=== PATIENT | male | born 1940 | race Caucasian/White ===

== ENCOUNTER 2023-08-25 09:59 | Outpatient (AMB) | payer BC, SELFPAY ==
--- OUTSIDE RECORDS SUMMARY | 2023-08-25 10:00 | XMS_ITS | Continuity of Care Document ---
Author Name Unknown Organization [facility] Address [address] [address]- Care Team Providers Care Event Sales Representative Name Role Phone Aroldo LINDSAY, Esther M Primary Care Physician Encounter [facility] [place] Date(s): 06/11/21 - 07/11/21 [facility] [address] [address]- Attending Physician: Andie Mcqueen Admitting Physician: Andie Mcqueen Referring Physician: AdmtrAndie Allergies, Adverse Reactions, Alerts Substance Reaction Severity Status sulfa drugs Active Immunizations Given and Recorded Vaccine Date Status Refusal Reason pneumococcal 13-valent vaccine 06/20/15 Given influenza virus vaccine, inactivated 06/20/15 Give n influenza virus vaccine, inactivated 07/05/14 Give n influenza virus vaccine, inactivated 07/05/13 Hamzah rded influenza virus vaccine, inactivated 05/14/11 Hamzah rded influenza virus vaccine, inactivated 05/22/10 Hamzah rded tetanus/diphtheria/pertussis, acel(Tdap) 04/15/15 Given tetanus/diphtheria/pertussis, acel(Tdap) 05/26/12 Recorded Zostavax (oldterm) 1 09/03/08 Given 1Admin Note: given at [facility] per patient Medications Aspirin Tablet 81 mg, By Mouth, Daily, Refills 0, Maintenance, 09/25/16 13:28:43 Start Date: 09/25/16 Status: Ordered Azilect 1 mg oral tablet 1 tablet = 1 mg, By Mouth, Daily, # 30 tablet, 5 Refills, Maintenance, 04/28/16 11:08:36, Tablet Start Date: 04/28/16 Stop Date: 2/12/17 Status: Ordered finasteride 5 mg oral tablet 1 tablet = 5 mg, By Mouth, Daily, # 90 tablet, 3 Refills, Maintenance, 10/17/15 11:44:43, Tablet Start Date: 10/17/15 Stop Date: 10/11/16 Status: Ordered gabapentin 600 mg oral tablet 1.5 tablet = 900 mg, By Mouth, Daily at bedtime, 900 mg, 0 Refills, Maintenance, 09/25/16 21:00:49 EST Start Date: 09/25/16 Status: Ordered Multivitamin By Mouth, Daily, 0 Refills, Maintenance, 09/25/16 13:29:08 Start Date: 09/25/16 Status: Ordered Nitrostat 0.4 mg sublingual tablet 1 tablet = 0.4 mg, Sublingual, Every 5 minutes, PRN for chest pain, not to exceed 3 doses/15 min--if pain persists, seek medical attention, # 100 tablet, 0 Refills, Maintenance, 02/08/18 16:07:52 EDT, Tablet Start Date: 02/08/18 Status: Ordered Sinemet 25 mg-100 mg oral tablet 1 tablet, By Mouth, 3 times a day, # 90 tablet, 5 Refills, Maintenance, 12/16/15 17:17:00, Tablet Start Date: 12/16/15 Stop Date: 06/13/16 Status: Ordered terazosin 5 mg oral capsule 5 mg, 1, capsule, By Mouth, Daily at bedtime, # 30 capsule, Refills 5, Tot. Refills 5, Maintenance,05/04/16 14:14:00, Route to Pharmacy Electronically, [id number], [id number] Start Date: 05/04/16 Stop Date: 10/31/16 Status: Ordered Problem List Condition Effective Dates Status Health Status Inform ant Anemia(Confirmed) Active BPH (benign prostatic hypertrophy)(Confirmed) Active CAD - Coronary artery disease(Confirmed) Active Hip pain(Confirmed) Active Ischemic colitis(Confirmed) Active Lipids abnormal(Confirmed) Active Low back pain(Confirmed) Active Parkinson disease(Confirmed) Active RLS (restless legs syndrome)(Confirmed) Active Thyroid nodule(Confirmed) 1 Active 75373 thyroid ultrasound no malignant features Social History Social History Type Response Smoking Status Never smoker entered on: 05/09/14 Sex
--- OUTSIDE RECORDS SUMMARY | 2023-08-25 10:00 | XMS_ITS | Continuity of Care Document ---
Author Name Unknown Organization [facility] Address [address] [address]- Care Team Providers Care Load Blocker Name Role Phone Richard Hood DO Primary Care Physician Encounter [facility] [place] Date(s): 10/06/22 - 10/13/22 [facility] [address] [address]- Attending Physician: Not on Staff, Attending MD Referring Physician: Richard Hood DO Allergies, Adverse Reactions, Alerts Substance Reaction Severity [...] 1 09/03/08 Given 1Admin Note: given at [facility] per patient Medications Aspirin Tablet 81 mg, By Mouth, Daily, Refills 0, Maintenance, 09/25/16 13:28:43 Start Date: 09/25/16 Status: Ordered atorvastatin 40 mg oral tablet 1 tablet = 40 mg, By Mouth, Daily, # 90 tablet, 3 Refills, Maintenance, 05/15/22 15:16:00 EDT, [facility]t, [id number], 180, cm, 12/03/21 11:29:00 EDT, Height Start Date: 05/15/22 Status: Ordered Azilect 1 mg oral tablet 1 tablet = 1 mg, By Mouth, Daily, # 30 tablet, 5 Refills, Maintenance, 04/28/16 11:08:36, Tablet Start Date: 04/28/16 Stop Date: 10/25/16 Status: Ordered finasteride 5 mg oral tablet 1 tablet = 5 mg, By Mouth, Daily, for 90 days, # 90 tablet, 3 Refills, Hard Stop 11/28/22 12:38:00 EDT, 12/03/21 12:38:00 EDT, Tablet, [facility] [id number] [facility] [place], 180, cm, 12/03/21 11:29:00 EDT, Height Start Date: 12/03/21 Stop Date: 11/28/22 Status: Ordered finasteride 5 mg oral tablet 1 tablet = 5 mg, By Mouth, Daily, # 90 tablet, 3 Refills, Maintenance, 09/21/22 10:55:00 EST, Tablet, [facility], 180, cm, 09/09/22 13:28:00 EST, Height, 93, kg, 09/09/22 13:28:00 EST, Dry Weight Start Date: 09/21/22 Stop Date: 09/16/23 Status: Ordered gabapentin 300 mg oral capsule 900 mg, 3, capsule, By Mouth, Daily at bedtime, Refills 0, Maintenance, 10/05/22 11:29:00 EST, Partial fill upon patient request if the prescription is for a schedule II opioid drug. Start Date: 10/05/22 Status: Ordered Mirapex 0.25 mg oral tablet See Instructions, 0.25 mg By Mouth 3 times a day plus an addition 0.50 mg at bedtime, 0 Refills, Maintenance, 10/05/22 11:30:00 EST, Partial fill upon patient request if the prescription is for a schedule II opioid drug. Start Date: 10/05/22 Status: Ordered Multivitamin By Mouth, Daily, 0 [...] Ordered Sinemet 25 mg-100 mg oral tablet 1.5 tablet, By Mouth, 4 times a day, 0 Refills, Maintenance, 10/05/22 11:28:00 EST, Partial fill upon patient request if the prescription is for a schedule II opioid drug. Start Date: 10/05/22 Status: Ordered terazosin 5 mg oral capsule 1, capsule, By Mouth, Daily at bedtime, # 90 capsule, Refills 1, Route to Pharmacy Electronically, [id number] [place], 180, cm, 12/03/21 11:29:00 EDT, Height Start Date: 04/21/22 Status: Ordered Problem List Condition Confirmation Course Effective Dates Status Health St atus Informant Anemia Confirmed Active BPH (benign prostatic hypertrophy) Confirmed Active CAD - Coronary artery disease Confirmed Active Hip pain Confirmed Active Ischemic colitis Confirmed Active Lipids abnormal Confirmed Active Low back pain Confirmed Active Parkinson disease Confirmed Active RLS (restless legs syndrome) Confirmed Active Thyroid nodule 1 Confirmed Active 38953 thyroid ultrasound no malignant features Vital Signs Most recent to oldest [Reference Range]: 1 2 3 Pulse Rate [55-90 bpm] 68 bpm (10/06/22 10:25 AM) 70 bpm (10/06/22 10:15 AM) 85 bpm (10/06/22 9:00 AM) Blood Pressure [90-138/55-84 mm Hg] 99/54mm Hg (10/06/22 10:25 AM) 109/60mm Hg (10/06/22 10:15 AM) 95/60mm Hg (10/06/22 9:00 AM) Blood pressure sites Arm, left (10/06/22 10:25 AM) Arm, left (10/06/22 10:15 AM) Social History Social History Type Response Smoking Status Never smoker entered on: 05/09/14 Sex Patient Care team information Care Team Personnel Name: Richard Hood DO Position: Reference Physician Member Role: PCP Address: Address: [address] [place] [address] Dr [address] [facility] [place] [address]- [place] Name: Delfina Tellez RN Position: Jomar NOLASCO RN Member Role: Primary Care Nurse Name: Agustina Camacho RN Position: S RN Member Role: Primary Care Nurse Name: Claudine Evans NP Position: Reference Physician Member Role: Primary Care Nurse Address: Address: [address] [place] [address] [place] Care Team Related Persons Name: JACOB RAYA Address: home [address] [place] [address] Name: LES RAYA Address: [place] [address]
--- OUTSIDE RECORDS SUMMARY | 2023-08-25 10:00 | XMS_ITS | Continuity of Care Document ---
Author Name Unknown Organization [facility] Address [address] [address]- Care Team Providers Care Machinist Linotype Name Role Phone Aroldo LINDSAY, Esther M Primary Care Physician [phone] Encounter [facility] [place] Date(s): 12/23/21 - 01/22/22 [facility] [address] [address]- Referring Physician: Mirella Gerardo MD Allergies, Adverse Reactions, Alerts Substance Reaction Severity [...] 1 09/03/08 Given 1Admin Note: given at [facility] per patient Medications Aspirin Tablet [...] Daily, # 90 tablet, 3 Refills, Maintenance, 12/03/21 12:38:00 EDT, [facility]t, [id number], 180, cm, 12/03/21 11:29:00 EDT, Height Start Date: 12/03/21 Stop Date: 11/28/22 Status: Ordered gabapentin 600 mg oral tablet 1.5 tablet = 900 mg, By Mouth, Daily at bedtime, 900 mg, 0 Refills, Maintenance, 09/25/16 21:00:49 EST Start Date: 09/25/16 Status: Ordered mirabegron 25 mg oral tablet, extended release 1 tablet = 25 mg, By Mouth, Daily, do not crush or chew, # 30 tablet, 1 Refills, Maintenance, 12/03/21 12:39:00 EDT, ER Tablet, [facility], Partial fill upon patient request if the prescription is for a schedule II opioid drug., 180, cm, 11/12... Start Date: 12/03/21 Stop Date: 02/01/22 Status: Ordered Multivitamin By Mouth, Daily, 0 [...] Date: 12/16/15 Stop Date: 06/13/16 Status: Ordered Problem List Condition Effective Dates Status Health Status Inform ant Anemia(Confirmed) Active BPH (benign prostatic hypertrophy)(Confirmed) Active CAD - Coronary artery disease(Confirmed) Active Hip pain(Confirmed) Active Ischemic colitis(Confirmed) Active Lipids abnormal(Confirmed) Active Low back pain(Confirmed) Active Parkinson disease(Confirmed) Active RLS (restless legs syndrome)(Confirmed) Active Thyroid nodule(Confirmed) 1 Active 62578 thyroid ultrasound no malignant features Social History Social History Type Response Smoking Status Never smoker entered on: 05/09/14 Sex
--- OUTSIDE RECORDS SUMMARY | 2023-08-25 10:00 | XMS_ITS | Continuity of Care Document ---
Author Name Unknown Organization [facility] Address [address] [address]- Care Team Providers Care Supervisor Road Administrator Name Role Phone Richard Hood DO Kamron Primary Care Physician Encounter [facility] Date(s): 10/22/22 - 11/21/22 [facility] [address] [address]- [place] Allergies, Adverse Reactions, Alerts Substance Reaction Severity [...] 09/03/08 Given 1Admin Note: given at [facility] per patient Medications Aspirin Tablet 81 mg, By Mouth, Daily, Refills 0, Maintenance, 09/25/16 13:28:43 Start Date: 09/25/16 Status: Ordered atorvastatin 40 mg oral tablet 1 tablet = 40 mg, By Mouth, Daily, # 90 tablet, 3 Refills, Maintenance, 05/15/22 15:16:00 EDT, Tablet, [id number], 180, cm, 12/03/21 11:29:00 EDT, [...] 11/28/22 12:38:00 EDT, 12/03/21 12:38:00 EDT, Tablet, [facility] [address] [facility] [place], 180, cm, 12/03/21 11:29:00 EDT, Height Start Date: 12/03/21 Stop Date: 11/28/22 Status: Ordered finasteride 5 mg oral tablet 1 tablet = 5 mg, By Mouth, Daily, # 90 tablet, 3 Refills, Maintenance, 09/21/22 10:55:00 EST, Tablet, [facility], 180, cm, 09/09/22 13:28:00 EST, Height, 93, [...] attention, # 100 tablet, 0 Refills, Maintenance, 05/29/18 16:07:52 EDT, Tablet Start Date: 02/08/18 Status: [...] capsule, Refills 1, Route to Pharmacy Electronically, [facility] [place], 180, cm, 12/03/21 11:29:00 EDT, [...] Confirmed Active Thyroid nodule 1 Confirmed Active 00157 thyroid ultrasound no malignant features Social History Social History Type Response Smoking Status Never smoker entered on: 05/09/14 Sex Patient Care team information Care Team Personnel Name: Richard Hood DO Position: Reference Physician Member Role: PCP Address: Address: [address] [place] [id number]- Name: Delfina Tellez RN Position: Jomar NOLASCO RN Member Role: Primary Care Nurse Name: Agustina Camacho RN Position: S RN Member Role: Primary Care Nurse Name: Claudine Evans NP Position: Reference Physician Member Role: Primary Care Nurse Address: Address: [address] [place] [address]- Care Team Related Persons Name: JACOB RAYA Address: home [address] [place] [address] Name: LES RAYA Address: [place] [address]
--- OUTSIDE RECORDS SUMMARY | 2023-08-25 10:00 | XMS_ITS | Continuity of Care Document ---
Author Name Unknown Organization [facility] Address [address] [address]- Care Team Providers Care Correctional Officer Captain Name Role Phone HoodAmbrosio killian DOfarzana Lundy Primary Care Physician [place] [facility] [place] 03/11/23 - 04/10/23 [facility] [address] [address]- [place] Allergies, Adverse Reactions, Alerts Substance Reaction [...] 1 09/03/08 Given 1Admin Note: given at [facility] per patient Medications Aspirin Tablet 81 mg, By Mouth, Daily, Refills 0, Maintenance, 09/25/16 13:28:43 Start Date: 09/25/16 Status: Ordered atorvastatin 40 mg oral tablet 1 tablet = 40 mg, By Mouth, Daily, # 90 tablet, 3 Refills, Maintenance, 03/12/23 10:13:00 EDT, Tablet, [facility], 180, cm, 11/25/22 9:22:00 EDT, Height, 93, kg, 09/09/22 13:28:00 EST, Dry Weight Start Date: 03/12/23 Status: Ordered Azilect 1 mg oral tablet 1 tablet = 1 mg, By Mouth, Daily, # 30 tablet, 5 Refills, Maintenance, 04/28/16 11:08:36, Tablet Start Date: 04/28/16 Stop Date: 10/25/16 Status: Ordered finasteride 5 mg oral tablet 1 tablet = 5 mg, By Mouth, Daily, # 90 tablet, 3 Refills, Maintenance, 09/21/22 10:55:00 EST, Tablet, [facility], 180, cm, 09/09/22 13:28:00 [...] opioid drug. Start Date: 10/05/22 Status: Ordered Magnesium Chloride 0 Refills, Maintenance, 11/25/22 9:12:00 EDT, Partial fill upon patient request if the prescriptionis for a schedule II opioid drug. Start Date: 11/25/22 Status: Ordered Mirapex 0.25 mg oral tablet See Instructions, 0.25 mg By Mouth 3 times a day plus an addition 0.50 mg at bedtime, 0 Refills, Maintenance, 10/05/22 11:30:00 EST, Partial fill upon patient request if the prescription is for a schedule II opioid drug. Start Date: 10/05/22 Status: Ordered Nitrostat 0.4 mg sublingual tablet 1 tablet = 0.4 mg, Sublingual, Every 5 minutes, PRN for chest pain, not to exceed 3 doses/15 min--if pain persists, seek medical attention, # 100 tablet, 0 Refills, Maintenance, 02/08/18 16:07:52 EDT, Tablet Start Date: 02/08/18 Status: Ordered Propranolol 20 mg, By Mouth, 2 times a day, Refills 0, Maintenance, 11/25/22 9:12:00 EDT, Partial fill upon patient request if the prescription is for a schedule II opioid drug. Start Date: 11/25/22 Status: Ordered Sinemet 25 mg-100 mg oral tablet 1.5 tablet, By Mouth, 4 times a day, 0 Refills, Maintenance, 10/05/22 11:28:00 EST, Partial fill upon patient request if the prescription is for a schedule II opioid drug. Start Date: 10/05/22 Status: Ordered terazosin 5 mg oral capsule 1, capsule, By Mouth, Daily at bedtime, # 90 capsule, Refills 1, Route to Pharmacy Electronically, [id number], 180, cm, 12/03/21 11:29:00 EDT, [...] Confirmed Active Thyroid nodule 1 Confirmed Active 05436 thyroid ultrasound no malignant features Social History Social History Type Response Smoking Status Never smoker entered on: 05/09/14 Sex Patient Care team information Care Team Personnel Name: Richard Hood DO Position: Reference Physician Member Role: PCP Address: Address: [address] [place] [address]- Name: Delfina Tellez RN Position: Jomar NOLASCO RN Member Role: Primary Care Nurse Name: Agustina Camacho RN Position: S RN Member Role: Primary Care Nurse Name: Claudine Evans NP Position: Reference Physician Member Role: Primary Care Nurse Address: Address: [address] [place] [address]- Care Team Related Persons Name: JACOB RAYA Address: [address] [place] [address] Name: LES RAYA Address: [place] [address]
--- OUTSIDE RECORDS SUMMARY | 2023-08-25 10:00 | XMS_ITS | Continuity of Care Document ---
Author Name Unknown Organization [facility] Address [address] [address]- Care Team Providers Care Professor Of Social Work Name Role Phone Fernandez LINDSAY, Esther M Primary Care Physician Encounter [facility] [place] Date(s): 09/25/20 - 10/25/20 [facility] [address] [address]- Attending Physician: Andie Mcqueen Admitting Physician: Andie [...] 1 09/03/08 Given 1Admin Note: given at [facility] per patient Medications Aspirin Tablet [...] 5, Maintenance,05/04/16 14:14:00, Route to Pharmacy Electronically, [id number], [facility] Start Date: 05/04/16 Stop Date: 10/31/16 Status: Ordered Problem List Condition Effective Dates Status Health Status Inform ant Anemia(Confirmed) Active BPH (benign prostatic hypertrophy)(Confirmed) Active CAD - Coronary artery disease(Confirmed) Active Hip pain(Confirmed) Active Ischemic colitis(Confirmed) Active Lipids abnormal(Confirmed) Active Low back pain(Confirmed) Active Parkinson disease(Confirmed) Active RLS (restless legs syndrome)(Confirmed) Active Thyroid nodule(Confirmed) 1 Active 13415 thyroid ultrasound no malignant features Social History Social History Type Response Smoking Status Never smoker entered on: 05/09/14 Sex
--- OUTSIDE RECORDS SUMMARY | 2023-08-25 10:00 | XMS_ITS | Continuity of Care Document ---
Author Name Unknown Organization [facility] Address [address] [address]- Care Team Providers Care Automated Logistics Specialist Name Role Phone Aroldo LINDSAY, Esther M Primary Care Physician [phone] Encounter [facility] [place] Date(s): 06/11/21 - 06/18/21 [place] [place] [address] [address]- Attending Physician: Dez Armstrong MD Admitting Physician: Dez Armstrong MD Referring Physician: Dez Armstrong MD Allergies, Adverse Reactions, Alerts Substance Reaction [...] 1 09/03/08 Given 1Admin Note: given at [facility] per patient Medications Aspirin Tablet 81 [...] 5, Maintenance,05/04/16 14:14:00, Route to Pharmacy Electronically, [id number], [id number] Start Date: 05/04/16 Stop Date: 10/31/16 Status: Ordered Problem List Condition Effective Dates Status Health Status Inform ant Anemia(Confirmed) Active BPH (benign prostatic hypertrophy)(Confirmed) Active CAD - Coronary artery disease(Confirmed) Active Hip pain(Confirmed) Active Ischemic colitis(Confirmed) Active Lipids abnormal(Confirmed) Active Low back pain(Confirmed) Active Parkinson disease(Confirmed) Active RLS (restless legs syndrome)(Confirmed) Active Thyroid nodule(Confirmed) 1 Active 52040 thyroid ultrasound no malignant features Social History Social History Type Response Smoking Status Never smoker entered on: 05/09/14 Sex
--- OUTSIDE RECORDS SUMMARY | 2023-08-25 10:00 | XMS_ITS | Continuity of Care Document ---
Author Name Unknown Organization [facility] Address [address] [address]- Care Team Providers Care Optical Effects Layout Person Name Role Phone Aroldo LINDSAY, Esther Hudson Primary Care Physician [place] [facility] [place]14[place] - 06/13/22 [facility] [address] [address]- [place] Allergies, Adverse Reactions, Alerts Substance Reaction [...] 1 09/03/08 Given 1Admin Note: [facility] Medications Aspirin Tablet 81 mg, By Mouth, Daily, Refills 0, Maintenance, 09/25/16 13:28:43 Start Date: 09/25/16 Status: Ordered atorvastatin 40 mg oral tablet 1 tablet = 40 mg, By Mouth, Daily, # 90 tablet, 3 Refills, Maintenance, 05/15/22 15:16:00 EDT, [facility], 180, cm, 12/03/21 11:29:00 EDT, [...] Refills, Maintenance, 12/03/21 12:38:00 EDT, Tablet, [facility], 180, cm, 12/03/21 11:29:00 EDT, [...] chew, # 30 tablet, 1 Refills, Maintenance, 05/27/22 11:30:00 EDT, ER Tablet, [facility], Partial fill upon patient request if the prescription is for a schedule II opioid drug., 180, cm, 05/14... Start Date: 05/27/22 Stop Date: 07/26/22 Status: Ordered Mirapex = 1 mg, By Mouth, 2 times a day before breakfast and dinne, 0 Refills, Maintenance, 03/30/18 16:04:19 EDT Start Date: 03/30/18 Status: Ordered Multivitamin By Mouth, Daily, 0 Refills, Maintenance, 09/25/16 13:29:08 Start Date: 09/25/16 Status: Ordered Nitrostat 0.4 mg sublingual tablet 1 tablet = 0.4 mg, Sublingual, Every 5 minutes, PRN for chest pain, not to exceed 3 doses/15 min--if pain persists, seek medical attention, # 100 tablet, 0 Refills, Maintenance, 02/08/18 16:07:52 EDT, Tablet Start Date: 02/08/18 Status: Ordered propranolol 20 mg oral tablet 20 mg, 1, tablet, By Mouth, 3 times a day, # 270 tablet, Refills 3, Tot. Refills 3, Maintenance, 11/10/21 16:17:00 EST, Route [facility], [id number], 180, cm, 07/21/21 8:15:00 EST, Height Start Date: 11/10/21 Status: Ordered Sinemet 25 mg-100 mg oral tablet 1 tablet, By Mouth, 3 times a day, # 90 tablet, 5 Refills, Maintenance, 12/16/15 17:17:00, Tablet Start Date: 12/16/15 Stop Date: 06/13/16 Status: Ordered terazosin 5 mg oral capsule 1, capsule, By Mouth, Daily at bedtime, # 90 capsule, Refills 1, [facility] [place], 180, cm, 12/03/21 11:29:00 EDT, [...] Confirmed Active Thyroid nodule 1 Confirmed Active 55107 thyroid ultrasound no malignant features Social History Social History Type Response Smoking Status Never smoker entered on: 05/09/14 Sex Patient Care team information Personnel Name: Esther Kendrick NP Address: Address: [address] [place] [address] [employer] [place], [place] [address]
--- OUTSIDE RECORDS SUMMARY | 2023-08-25 10:00 | XMS_ITS | Continuity of Care Document ---
Author Name Unknown Organization [facility] Address [address] [place] [address]- Care Team Providers Care Injection Molding Engineer Name Role Phone Aroldo LINDSAY, Esther Hudson Primary Care Physician [phone] Encounter [facility] [place] Date(s): 12/03/21 - 12/10/21 [facility] [address] [place] [address]- Attending Physician: Dash Martinez MD Admitting Physician: Dash Martinez MD Referring Physician: Not on Staff, Referring MD Allergies, Adverse Reactions, Alerts Substance Reaction [...] 1 09/03/08 Given 1Admin Note: given at [facility] per patient Medications Aspirin Tablet 81 [...] Refills, Maintenance, 12/03/21 12:38:00 EDT, [facility]t, [facility], 180, cm, 12/03/21 11:29:00 EDT, [...] Maintenance, 12/03/21 12:39:00 EDT, ER Tablet, [facility], Partial fill upon patient request [...] 5, Maintenance,05/04/16 14:14:00, Route to Pharmacy Electronically, [id number], [facility] Start Date: 05/04/16 Stop Date: 10/31/16 Status: Ordered Problem List Condition Effective Dates Status Health Status Inform ant Anemia(Confirmed) Active BPH (benign prostatic hypertrophy)(Confirmed) Active CAD - Coronary artery disease(Confirmed) Active Hip pain(Confirmed) Active Ischemic colitis(Confirmed) Active Lipids abnormal(Confirmed) Active Low back pain(Confirmed) Active Parkinson disease(Confirmed) Active RLS (restless legs syndrome)(Confirmed) Active Thyroid nodule(Confirmed) 1 Active 49391 thyroid ultrasound no malignant features Vital Signs Most recent to oldest [Reference Range]: 1 Height 180 cm (12/03/21 11:29 AM) Pulse Rate [55-90 bpm] 53 bpm *L* (12/03/21 11:29 AM) Blood Pressure [90-138/55-84 mm Hg] 138/ 79mm Hg (12/03/21 11:29 AM) Respiratory Rate [16-30 br/min] 20 br/mi n (12/03/21 11:29 AM) Blood pressure sites Arm, right (12/03/21 11:29 AM) Social History Social History Type Response Smoking Status Never smoker entered on: 05/09/14 Sex
--- OUTSIDE RECORDS SUMMARY | 2023-08-25 10:01 | XMS_ITS | Continuity of Care Document ---
Author Name Unknown Organization [facility] Address [address] [facility] [place] [address]- Care Team Providers Care Risk Control Officer Name Role Phone Richard Hood DO Primary Care Physician Encounter [facility] Date(s): 03/24/23 - 03/31/23 [facility] [address] [place] [address]- Attending Physician: Dash Martinez MD Admitting Physician: [...] 1 09/03/08 Given 1Admin Note: given at [facility] per patient Medications Aspirin Tablet 81 mg, By Mouth, Daily, Refills 0, Maintenance, 09/25/16 13:28:43 Start Date: 09/25/16 Status: Ordered atorvastatin 40 mg oral tablet 1 tablet = 40 mg, By Mouth, Daily, # 90 tablet, 3 Refills, Maintenance, 03/12/23 10:13:00 EDT, Tablet, [facility], 180, cm, 11/25/22 9:22:00 EDT, Height, [...] 3 Refills, Maintenance, 09/21/22 10:55:00 EST, Tablet, [facility], 180, cm, 09/09/22 13:28:00 EST, Height, [...] capsule, Refills 1, Route to Pharmacy Electronically, [id number], 180, cm, 12/03/21 11:29:00 EDT, [...] Confirmed Active Thyroid nodule 1 Confirmed Active 63070 thyroid ultrasound no malignant features Vital Signs Most recent to oldest [Reference Range]: 1 Height 180 cm (03/24/23 10:36 AM) Pulse Rate [55-90 bpm] 68 bpm (03/24/23 10:36 AM) Blood Pressure [90-138/55-84 mm Hg] 94/5 5mm Hg (03/24/23 10:36 AM) Blood pressure sites Arm, right (03/24/23 10:36 AM) Social History Social History Type Response Smoking Status Never smoker entered on: 05/09/14 Sex Patient Care team information Care Team Personnel Name: Richard Hood DO Position: Reference Physician Member Role: PCP Address: Address: [address] [place] [address] [place] [address]- Name: Delfina Tellez RN Position: Jomar NOLASCO RN Member Role: Primary Care Nurse Name: Agustina Camacho RN Position: S RN Member Role: Primary Care Nurse Name: Claudine Evans NP Position: Reference Physician Member Role: Primary Care Nurse Address: Address: [address] [place] [address]- Care Team Related Persons Name: DOROTAJACOB Address: home [address] [place] [address] Name: LES RAYA Address: [place] [address]
--- OUTSIDE RECORDS SUMMARY | 2023-08-25 10:01 | XMS_ITS | Continuity of Care Document ---
Author Name Unknown Organization [facility] Address [address] [facility] [place] [address]- Care Team Providers Care Street Vendor Name Role Phone Richard Hood DO Kamron Primary Care Physician Encounter [facility] Date(s): 03/24/23 - 04/23/23 [facility] [address] [place] [address]- Attending Physician: Andie Mcqueen Admitting Physician: Andie [...] 1 09/03/08 Given 1Admin Note: given at [facility] per patient Medications Aspirin Tablet 81 mg, By Mouth, Daily, Refills 0, Maintenance, 09/25/16 13:28:43 Start Date: 09/25/16 Status: Ordered atorvastatin 40 mg oral tablet 1 tablet = 40 mg, By Mouth, Daily, # 90 tablet, 3 Refills, Maintenance, 03/12/23 10:13:00 EDT, Tablet, [facility], 180, cm, 11/25/22 9:22:00 EDT, Height, [...] 3 Refills, Maintenance, 09/21/22 10:55:00 EST, Tablet, [facility], 180, cm, 09/09/22 13:28:00 EST, Height, [...] persists, seek medical attention, # 100 tablet, 1 Refills, Maintenance, 04/13/23 15:11:00 EDT, Tablet, [id number], 180, cm, 03/24/23 10:... Start Date: 04/13/23 Status: Ordered Propranolol 20 mg, By Mouth, [...] capsule, Refills 1, Route to Pharmacy Electronically, [id number], 180, cm, 12/03/21 11:29:00 EDT, [...] Confirmed Active Thyroid nodule 1 Confirmed Active 01961 thyroid ultrasound no malignant features Social History Social History Type Response Smoking Status Never smoker entered on: 05/09/14 Sex Patient Care team information Care Team Personnel Name: Richard Hood DO Position: Reference Physician Member Role: PCP Address: Address: [address] [place] [address]- Name: Delfina Tellez RN Position: Jomar NOLASCO RN Member Role: Primary Care Nurse Name: Agustina Camacho RN Position: S RN Member Role: Primary Care Nurse Name: Claudine Evans NP Position: Reference Physician Member Role: Primary Care Nurse Address: Address: [address] [place] [address]- Care Team Related Persons Name: DOROTA, JACOB Address: home [address] [place] [address] Name: DOROTA LES Address: [place] [address]
--- OUTSIDE RECORDS SUMMARY | 2023-08-25 10:01 | XMS_ITS | Continuity of Care Document ---
Author Name Unknown Organization [facility] Address [address] [address]- Care Team Providers Care Fabric Worker Fitter Name Role Phone Alex Patel MD Primary Care Phys[id number] 09[facility]06/[facility] [address] [address]- Attending Physician: Dez Armstrong MD Admitting Physician: Dez Armstrong MD Referring Physician: Alex Patel MD Allergies, Adverse Reactions, Alerts Substance Reaction [...] 1 09/03/08 Given 1Admin Note: given at [facility] per patient Medications Aspirin Tablet 81 mg, [...] 5, Maintenance,05/04/16 14:14:00, Route to Pharmacy Electronically, [id number], [id number] Start Date: 05/04/16 Stop Date: 10/31/16 Status: Ordered Problem List Condition Effective Dates Status Health Status Inform ant Anemia(Confirmed) Active BPH (benign prostatic hypertrophy)(Confirmed) Active CAD - Coronary artery disease(Confirmed) Active Hip pain(Confirmed) Active Ischemic colitis(Confirmed) Active Lipids abnormal(Confirmed) Active Low back pain(Confirmed) Active Parkinson disease(Confirmed) Active RLS (restless legs syndrome)(Confirmed) Active Thyroid nodule(Confirmed) 1 Active 66125 thyroid ultrasound no malignant features Social History Social History Type Response Smoking Status Never smoker entered on: 05/09/14 Sex
--- OUTSIDE RECORDS SUMMARY | 2023-08-25 10:01 | XMS_ITS | Continuity of Care Document ---
Author Name Unknown Organization [facility] Address [address] [address]- Care Team Providers Care Furniture Builder Name Role Phone Fernandez LINDSAY, Esther M Primary Care Physician [facility] Date(s): 09/12/20 - 10/31/20 [place] [id number] [address]- Attending Physician: Dez Armstrong MD Admitting Physician: [...] 1 09/03/08 Given 1Admin Note: given at [facility] per patient Medications Aspirin Tablet 81 [...] 5, Maintenance,05/04/16 14:14:00, Route to Pharmacy Electronically, [id number], [id number] Start Date: 05/04/16 Stop Date: 10/31/16 Status: Ordered Problem List Condition Effective Dates Status Health Status Inform ant Anemia(Confirmed) Active BPH (benign prostatic hypertrophy)(Confirmed) Active CAD - Coronary artery disease(Confirmed) Active Hip pain(Confirmed) Active Ischemic colitis(Confirmed) Active Lipids abnormal(Confirmed) Active Low back pain(Confirmed) Active Parkinson disease(Confirmed) Active RLS (restless legs syndrome)(Confirmed) Active Thyroid nodule(Confirmed) 1 Active 61017 thyroid ultrasound no malignant features Social History Social History Type Response Smoking Status Never smoker entered on: 05/09/14 Sex
--- OUTSIDE RECORDS SUMMARY | 2023-08-25 10:01 | XMS_ITS | Continuity of Care Document ---
Author Name Unknown Organization [facility] Address [address] [address]- Care Team Providers Care Rail Specialist Name Role Phone Aroldo LINDSAY, Esther M Primary Care Physician Encounter [facility] Date(s): 07/21/21 - 08/20/21 [facility] [address] [address]- Attending Physician: Andie Mcqueen Admitting Physician: Andie [...] 09/03/08 Given 1Admin Note: given at [facility] per patient Medications Aspirin Tablet [...] 5, Maintenance,05/04/16 14:14:00, Route to Pharmacy Electronically, [id number], [facility] Start Date: 05/04/16 Stop Date: 10/31/16 Status: Ordered Problem List Condition Effective Dates Status Health Status Inform ant Anemia(Confirmed) Active BPH (benign prostatic hypertrophy)(Confirmed) Active CAD - Coronary artery disease(Confirmed) Active Hip pain(Confirmed) Active Ischemic colitis(Confirmed) Active Lipids abnormal(Confirmed) Active Low back pain(Confirmed) Active Parkinson disease(Confirmed) Active RLS (restless legs syndrome)(Confirmed) Active Thyroid nodule(Confirmed) 1 Active 14595 thyroid ultrasound no malignant features Social History Social History Type Response Smoking Status Never smoker entered on: 05/09/14 Sex
--- OUTSIDE RECORDS SUMMARY | 2023-08-25 10:01 | XMS_ITS | Continuity of Care Document ---
Author Name Unknown Organization [facility] Address [address] [facility] [place] [address]- Care Team Providers Care Guyline Operator Name Role Phone Richard Hood DO Primary Care Physician Encounter [facility] Date(s): 09/09/22 - 09/16/22 [facility] [address] [place] [address]- Attending Physician: Dash Martinez MD Admitting Physician: Dash Martinez MD Referring Physician: Esther Kendrick NP Allergies, Adverse Reactions, Alerts Substance Reaction Severity [...] 09/03/08 Given 1Admin Note: given at [facility] per patient Medications Aspirin Tablet 81 mg, By Mouth, Daily, Refills 0, Maintenance, 09/25/16 13:28:43 Start Date: 09/25/16 Status: Ordered atorvastatin 40 mg oral tablet 1 tablet = 40 mg, By Mouth, Daily, # 90 tablet, 3 Refills, Maintenance, 05/15/22 15:16:00 EDT, Tablet, [id number], 180, cm, 03/23/22 11:29:00 EDT, Height Start Date: 05/15/22 Status: Ordered Azilect 1 mg oral tablet 1 tablet = 1 mg, By Mouth, Daily, # 30 tablet, 5 Refills, Maintenance, 04/28/16 11:08:36, Tablet Start Date: 04/28/16 Stop Date: 10/25/16 Status: Ordered finasteride 5 mg oral tablet 1 tablet = 5 mg, By Mouth, Daily, # 90 tablet, 3 Refills, Maintenance, 12/03/21 12:38:00 EDT, [facility]t, [facility], 180, cm, 12/03/21 11:29:00 EDT, Height Start Date: 12/03/21 Stop Date: 11/28/22 Status: Ordered gabapentin 600 mg oral tablet 1.5 tablet = 900 mg, By Mouth, Daily at bedtime, 900 mg, 0 Refills, Maintenance, 09/25/16 21:00:49 EST Start Date: 09/25/16 Status: Ordered Mirapex = 1 mg, By Mouth, 2 times a day before breakfast and dinne, 0 Refills, Maintenance, 03/30/18 16:04:19 EDT Start Date: 03/30/18 Status: Ordered Multivitamin By Mouth, Daily, 0 Refills, Maintenance, 09/25/16 13:29:08 Start Date: 09/25/16 Status: Ordered Myrbetriq 25 mg oral tablet, extended release 1 tablet, By Mouth, Daily, DO NOT CRUSH OR CHEW, # 30 tablet, 1 Refills, Maintenance, 08/24/22 12:08:00 EST, [id number], 180, cm, 05/27/22 11:09:00 EDT, Height Start Date: 08/24/22 Stop Date: 09/23/22 Status: Ordered Nitrostat 0.4 mg sublingual tablet [...] 16:17:00 EST, Route to Pharm[facility] Electronically, [id number], 180, cm, 07/21/21 8:15:00 EST, [...] 1, Route to Pharmacy Electronically, [id number], 180, cm, 12/03/21 11:29:00 EDT, [...] Confirmed Active Thyroid nodule 1 Confirmed Active 52135 thyroid ultrasound no malignant features Vital Signs Most recent to oldest [Reference Range]: 1 Height 180 cm (09/09/22 1:28 PM) Weight 93 kg (09/09/22 1:28 PM) Oxygen Saturation [94-100 %] 97 % (09/09/22 1:28 PM) Pulse Rate [55-90 bpm] 63 bpm (09/09/22 1:28 PM) Body Mass Index [18.5-24.99 kg/m2] 28.7 kg/m2 *H* (09/09/22 1:28 PM) Blood Pressure [90-138/55-84 mm Hg] 129/ 73mm Hg (09/09/22 1:28 PM) Respiratory Rate [16-30 br/min] 24 br/mi n (09/09/22 1:28 PM) Temperature [96.8-100.4 DegF] 97.0 DegF (09/09/22 1:28 PM) Mode of Delivery (Oxygen) Room air (09/09/22 1:28 PM) Blood pressure sites Arm, left (09/09/22 1:28 PM) Temperature Route Temporal (09/09/22 1:28 PM) Dry Weight 93 kg (09/09/22 1:28 PM) Weight Obtained Via Standing scale (09/09/22 1:28 PM) Dry Weight Obtained Via Standing scale (09/09/22 1:28 PM) Social History Social History Type Response Smoking Status Never smoker entered on: 05/09/14 Sex Note * Chelsi Bernstein: PERFORM, SIGN, VERIFY Event Display: Patient Education/Instruction Authored Date: [id number] [facility] Clinical Summary Name SULY RAYA Age 81 Years 1940 PCP Richard Hood DO PCP Visit Date 09/09/2022 13:25:00 Additional Instructions: Scheduled Appointments?? Future Appointments ?No Future Appointments Scheduled Follow-Up Instructions ?? With: Address: When: Malinda Ghotra [address] [place] [address] 08/25/2023 1:30 PM Diagnosis Medications: Please continue your medications until treatment is completed or stopped by your provider. Discuss any questions related to medications with your provider. Medications to Continue with No Changes These medications were not printed or sent to your pharmacy Aspirin (Aspirin Tablet) 81 Milligram Oral Daily. Next Dose: Atorvastatin (atorvastatin 40 mg oral tablet) 1 tab(s) Oral Daily. Refills: 3. Next Dose: Carbidopa-Levodopa (Sinemet 25 mg-100 mg oral tablet) 1 tab(s) Oral 3 times a day for 30 Days. Refills: 5. Next Dose: Finasteride (finasteride 5 mg oral tablet) 1 tab(s) Oral Daily for 90 Days. Refills: 3. Next Dose: Gabapentin (gabapentin 600 mg oral tablet) 1.5 tab(s) Oral Daily at Bedtime. 900 mg. Next Dose: mirabegron (Myrbetriq 25 mg oral tablet, extended release) 1 tab(s) Oral Daily for 30 Days. DO NOT CRUSH OR CHEW. Refills: 1. Next Dose: Multivitamin Oral Daily. Next Dose: Nitroglycerin (Nitrostat 0.4 mg sublingual tablet) 1 tab(s) Sublingual every 5 minutes as needed for chest pain. not to exceed 3 doses/15 min--if pain persists, seek medical attention. Refills: 0. Next Dose: Pramipexole (Mirapex) 1 Milligram Oral 2 times a day before breakfast and dinner. Next Dose: Propranolol (propranolol 20 mg oral tablet) 1 tab(s) Oral 3 times a day. Refills: 3. Next Dose: rasagiline (Azilect 1 mg oral tablet) 1 tab(s) Oral Daily for 30 Days. Refills: 5. Next Dose: Terazosin (terazosin 5 mg oral capsule) 1 capsule Oral Daily at Bedtime. Refills: 1. Next Dose: Allergy Info:?? sulfa drugs Medications Given This Visit Future Orders ?No future orders Vital Signs Height 180 cm Weight 93 kg BMI 28.7 kg/m2 Blood Pressure 129 mm Hg/73 mm Hg Temperature 97.0 DegF Pulse Rate 63 bpm Respiratory Rate 24 br/min 02 Sat Mode of Delivery 97 %/Room air You can now view a summary of your hospital visit from the comfort of your home through a free online portal called [employer]. [employer] is a website that allows you to securely view your medical information including discharge summary, medications and follow-up visits. ??You can alsosend a secure electronic message to your doctor???s office to request appointments, renew medications or just ask a question. You can enroll at [email or web address] or register during your next office visit. Disclaimer:?? The information provided is of a general nature and is intended to be used in conjunction with the recommendations and advice of your health care practitioner. ??Every effort has been made to ensure that the information provided is accurate and complete at the time it is provided to you however, as your needs change, or, as new ??information becomes available, different or additional instructions may be required. If you have questions, please consult with your primary care provider or pharmacist, as appropriate. ??This information is not intended to serve as substitution for assessment and evaluation by a qualified health care provider. If you do not have a primary care provider, you may find a [facility] provider by calling [facility] Cause[employer] Link at [phone]. For information about the plan of care including goals and instructions for your diagnosis, please see the patient education orders section of this document. Patient Education Materials?? The content of this educational material or handout may have been modified, supplemented, or adapted from its original content and format to support your individualized medical care. Patient Care team information Care Team Personnel Name: Richard Hood DO Position: Reference Physician Member Role: PCP Address: Address: [address] [place] [address] [place] [address]- Name: Delfina Tellez RN Position: NAS NOLASCO RN Member Role: Primary Care Nurse Name: Agustina Camacho RN Position: NAS RN Member Role: Primary Care Nurse Name: Claudine Evans NP Position: Reference Physician Member Role: Primary Care Nurse Address: Address: [address] [place] [address]- Care Team Related Persons Name: JACOB RAYA Address: home [address] [place] [address] Name: LES RAYA Address: [place] [address]
--- OUTSIDE RECORDS SUMMARY | 2023-08-25 10:01 | XMS_ITS | Continuity of Care Document ---
Author Name Unknown Organization [facility] Address [address] [address]- Care Team Providers Care Radio News Writer Name Role Phone Richard Hood DO Kamron Primary Care Physician [phone] Encounter [facility] Date(s): 11/25/22 - 12/25/22 [facility] [address] [address]- Attending Physician: Andie Mcqueen Admitting Physician: Andie [...] 09/03/08 Given 1Admin Note: given at [facility] per patient Medications Aspirin Tablet 81 mg, By Mouth, Daily, Refills 0, Maintenance, 09/25/16 13:28:43 Start Date: 09/25/16 Status: Ordered atorvastatin 40 mg oral tablet 1 tablet = 40 mg, By Mouth, Daily, # 90 tablet, 3 Refills, Maintenance, 05/15/22 15:16:00 EDT, [id number], 180, cm, 12/03/21 11:29:00 EDT, [...] 3 Refills, Maintenance, 09/21/22 10:55:00 EST, Tablet, [facility], 180, cm, 09/09/22 13:28:00 EST, [...] capsule, Refills 1, Route to Pharmacy Electronically, [id number], 180, cm, 12/03/21 11:29:00 EDT, [...] Confirmed Active Thyroid nodule 1 Confirmed Active 99016 thyroid ultrasound no malignant features Social History Social History Type Response Smoking Status Never smoker entered on: 05/09/14 Sex Patient Care team information Care Team Personnel Name: Richard Hood DO Position: Reference Physician Member Role: PCP Address: Address: [address] [place] [address]- Name: Delfina Tellez RN Position: Jomar NOLASCO RN Member Role: Primary Care Nurse Name: Agustina Camacho RN Position: S RN Member Role: Primary Care Nurse Name: Claudine Evans NP Position: Reference Physician Member Role: Primary Care Nurse Address: Address: [address] [place] [address]- Care Team Related Persons Name: JACOB RAYA Address: home [address] [place] [address] Name: LES RAYA Address: [place] [address]
--- OUTSIDE RECORDS SUMMARY | 2023-08-25 10:01 | XMS_ITS | Continuity of Care Document ---
Author Name Unknown Organization [facility] Address [address] [address]- Care Team Providers Care Neurology Stroke Physician Name Role Phone Alex Patel MD Primary Care Physician [phone] [id number] Date[facility]09[facility] - 09/16/20 [facility] [address] [address]- Attending Physician: Dez Armstrong MD Admitting Physician: [...] 1 09/03/08 Given 1Admin Note: given at [facility] per patient Medications Aspirin Tablet 81 [...] 5, Maintenance,05/04/16 14:14:00, Route to Pharmacy Electronically, [id number], [id number] Start Date: 05/04/16 Stop Date: 10/31/16 Status: Ordered Problem List Condition Effective Dates Status Health Status Inform ant Anemia(Confirmed) Active BPH (benign prostatic hypertrophy)(Confirmed) Active CAD - Coronary artery disease(Confirmed) Active Hip pain(Confirmed) Active Ischemic colitis(Confirmed) Active Lipids abnormal(Confirmed) Active Low back pain(Confirmed) Active Parkinson disease(Confirmed) Active RLS (restless legs syndrome)(Confirmed) Active Thyroid nodule(Confirmed) 1 Active 89955 thyroid ultrasound no malignant features Social History Social History Type Response Smoking Status Never smoker entered on: 05/09/14 Sex
--- OUTSIDE RECORDS SUMMARY | 2023-08-25 10:01 | XMS_ITS | Continuity of Care Document ---
Author Name Unknown Organization [facility] Address [address] [address]- Care Team Providers Care Digital Content Manager Name Role Phone Aroldo LINDSAY, Esther M Primary Care Physician Encounter [facility] Date(s): 07/21/21 - 07/28/21 [place] [id number] [address]- Attending Physician: Dez Armstrong MD Admitting Physician: [...] 1 09/03/08 Given 1Admin Note: given at [facility] per patient Medications Aspirin Tablet 81 mg, [...] 5, Maintenance,05/04/16 14:14:00, Route to Pharmacy Electronically, [id number], [id number] Start Date: 05/04/16 Stop Date: 10/31/16 Status: Ordered Problem List Condition Effective Dates Status Health Status Inform ant Anemia(Confirmed) Active BPH (benign prostatic hypertrophy)(Confirmed) Active CAD - Coronary artery disease(Confirmed) Active Hip pain(Confirmed) Active Ischemic colitis(Confirmed) Active Lipids abnormal(Confirmed) Active Low back pain(Confirmed) Active Parkinson disease(Confirmed) Active RLS (restless legs syndrome)(Confirmed) Active Thyroid nodule(Confirmed) 1 Active 66964 thyroid ultrasound no malignant features Vital Signs Most recent to oldest [Reference Range]: 1 Height 180 cm (07/21/21 8:15 AM) Weight 93.8 kg (07/21/21 8:15 AM) Pulse Rate [55-90 bpm] 47 bpm *L* (07/21/21 8:15 AM) Body Mass Index [18.5-24.99] 28.95 *H* (07/21/21 8:15 AM) Blood Pressure [90-138/55-84 mm Hg] 104/ 67mm Hg (07/21/21 8:15 AM) Blood pressure sites Arm, left (07/21/21 8:15 AM) Weight Obtained Via Standing scale (07/21/21 8:15 AM) Social History Social History Type Response Smoking Status Never smoker entered on: 05/09/14 Sex
--- OUTSIDE RECORDS SUMMARY | 2023-08-25 10:01 | XMS_ITS | Continuity of Care Document ---
Author Name Unknown Organization [facility] Address [address] [address]- Care Team Providers Care Assistant Office Manager Name Role Phone Aroldo LINDSAY, Esther Hudson Primary Care Physician [facility] [facility] Date(s): 04/10/21 - 05/10/21 [facility] [address] [address] Allergies, Adverse Reactions, Alerts Substance Reaction [...] 1 09/03/08 Given 1[facility] Medications Aspirin Tablet 81 mg, [...] 5, Maintenance,05/04/16 14:14:00, Route to Pharmacy Electronically, [id number], [id number] Start Date: 05/04/16 Stop Date: 10/31/16 Status: Ordered Problem List Condition Effective Dates Status Health Status Inform ant Anemia(Confirmed) Active BPH (benign prostatic hypertrophy)(Confirmed) Active CAD - Coronary artery disease(Confirmed) Active Hip pain(Confirmed) Active Ischemic colitis(Confirmed) Active Lipids abnormal(Confirmed) Active Low back pain(Confirmed) Active Parkinson disease(Confirmed) Active RLS (restless legs syndrome)(Confirmed) Active Thyroid nodule(Confirmed) 1 Active 06495 thyroid ultrasound no malignant features Social History Social History Type Response Smoking Status Never smoker entered on: 05/09/14 Sex
--- OUTSIDE RECORDS SUMMARY | 2023-08-25 10:01 | XMS_ITS | Continuity of Care Document ---
Author Name Unknown Organization [facility] Address [address] [address]- Care Team Providers Care Evidence Technician Name Role Phone Fernandez LINDSAY, Esther M Primary Care Physician [phone] Encounter [facility] [place] Date(s): 09/05/20 - 10/05/20 [facility] [address] [address]- [place] Allergies, Adverse Reactions, Alerts Substance Reaction [...] 1 09/03/08 Given 1Admin Note: given at [facility] per patient Medications Aspirin Tablet 81 [...] 5, Maintenance,05/04/16 14:14:00, Route to Pharmacy Electronically, [id number], [id number] Start Date: 05/04/16 Stop Date: 10/31/16 Status: Ordered Problem List Condition Effective Dates Status Health Status Inform ant Anemia(Confirmed) Active BPH (benign prostatic hypertrophy)(Confirmed) Active CAD - Coronary artery disease(Confirmed) Active Hip pain(Confirmed) Active Ischemic colitis(Confirmed) Active Lipids abnormal(Confirmed) Active Low back pain(Confirmed) Active Parkinson disease(Confirmed) Active RLS (restless legs syndrome)(Confirmed) Active Thyroid nodule(Confirmed) 1 Active 17452 thyroid ultrasound no malignant features Social History Social History Type Response Smoking Status Never smoker entered on: 05/09/14 Sex
--- OUTSIDE RECORDS SUMMARY | 2023-08-25 10:01 | XMS_ITS | Continuity of Care Document ---
Author Name Unknown Organization [facility] Address [address] [address]- Care Team Providers Care Quencher Operator Name Role Phone Richard Hood DO Kamron Primary Care Physician [phone] [place] [facility] [place] Date(s): 10/05/22 - 11/04/22 [facility] [address] [address]- [place] Allergies, Adverse Reactions, Alerts Substance Reaction [...] 1 09/03/08 Given 1Admin Note: given at [facility] per patient Medications Aspirin Tablet 81 mg, By Mouth, Daily, Refills 0, Maintenance, 09/25/16 13:28:43 Start Date: 09/25/16 Status: Ordered atorvastatin 40 mg oral tablet 1 tablet = 40 mg, By Mouth, Daily, # 90 tablet, 3 Refills, Maintenance, 05/15/22 15:16:00 EDT, [facility]t, [id number], 180, cm, 12/03/21 11:29:00 EDT, [...] 11/28/22 12:38:00 EDT, 12/03/21 12:38:00 EDT, Tablet, [facility] [address] [facility], 180, cm, 12/03/21 11:29:00 EDT, Height Start Date: 12/03/21 Stop Date: 11/28/22 Status: Ordered finasteride 5 mg oral tablet 1 tablet = 5 mg, By Mouth, Daily, # 90 tablet, 3 Refills, Maintenance, 09/21/22 10:55:00 EST, Tablet, [facility], 180, cm, 09/09/22 13:28:00 EST, Height, [...] capsule, Refills 1, Route to Pharmacy Electronically, [facility], 180, cm, 12/03/21 11:29:00 EDT, [...] Confirmed Active Thyroid nodule 1 Confirmed Active 40435 thyroid ultrasound no malignant features Social History Social History Type Response Smoking Status Never smoker entered on: 05/09/14 Sex Patient Care team information Care Team Personnel Name: Richard Hood DO Position: Reference Physician Member Role: PCP Address: Address: [address] [place] [address]- Name: Delfina Tellez RN Position: Jomar NOLASCO RN Member Role: Primary Care Nurse Name: Agustina Camacho RN Position: S RN Member Role: Primary Care Nurse Name: Claudine Evans NP Position: Reference Physician Member Role: Primary Care Nurse Address: Address: [address] [place] [address]- Care Team Related Persons Name: JACOB RAYA Address: home [address] [place] [address] Name: LES RAYA Address: [place] [address]
--- OUTSIDE RECORDS SUMMARY | 2023-08-25 10:01 | XMS_ITS | Continuity of Care Document ---
Author Name Unknown Organization [facility] Address [address] [facility] [place] [address]- Care Team Providers Care Food And Beverage Manager Name Role Phone Esther Kendrick NP Primary Care Physician Encounter [facility] [place] Date(s): 05/27/22 - 06/03/22 [facility] [address] [place] [address]- Attending Physician: Dash Martinez MD Admitting Physician: [...] 1 09/03/08 Given 1Admin Note: given at [facility] per patient Medications Aspirin Tablet 81 mg, By Mouth, Daily, Refills 0, Maintenance, 09/25/16 13:28:43 Start Date: 09/25/16 Status: Ordered atorvastatin 40 mg oral tablet 1 tablet = 40 mg, By Mouth, Daily, # 90 tablet, 3 Refills, Maintenance, 05/15/22 15:16:00 EDT, [facility]t, [id number], 180, cm, 12/03/21 11:29:00 EDT, [...] Refills, Maintenance, 12/03/21 12:38:00 EDT, [facility]t, [id number], 180, cm, 12/03/21 11:29:00 EDT, [...] Maintenance, 05/27/22 11:30:00 EDT, ER [id number], Partial fill upon patient request [...] Maintenance, 02/08/18 16:07:52 EDT, Tablet Start Date: 5/29/18 Status: Ordered propranolol 20 mg oral tablet 20 mg, 1, tablet, By Mouth, 3 times a day, # 270 tablet, Refills 3, Tot. Refills 3, Maintenance, 11/10/21 16:17:00 EST, Route to Pharmacy Electronically, [id number], 180, cm, 07/21/21 8:15:00 EST, [...] 1, Route to [facility] Electronically, [facility], 180, cm, 12/03/21 11:29:00 EDT, Height Start Date: 04/21/22 Status: Ordered Problem List Condition Effective Dates Status Health Status Inform ant Anemia(Confirmed) Active BPH (benign prostatic hypertrophy)(Confirmed) Active CAD - Coronary artery disease(Confirmed) Active Hip pain(Confirmed) Active Ischemic colitis(Confirmed) Active Lipids abnormal(Confirmed) Active Low back pain(Confirmed) Active Parkinson disease(Confirmed) Active RLS (restless legs syndrome)(Confirmed) Active Thyroid nodule(Confirmed) 1 Active 85876 thyroid ultrasound no malignant features Vital Signs Most recent to oldest [Reference Range]: 1 Height 180 cm (05/27/22 11:09 AM) Social History Social History Type Response Smoking Status Never smoker entered on: 05/09/14 Sex Care Team Personnel Name: Esther Kendrick NP Address: [address] [place] [address] [address] [place] [address]-
--- OUTSIDE RECORDS SUMMARY | 2023-08-25 10:01 | XMS_ITS | Continuity of Care Document ---
Author Name Unknown Organization [facility] Address [address] [address]- Care Team Providers Care Ems Manager Name Role Phone Fernandez LINDSAY, Esther M Primary Care Physician Encounter [facility] [place] Date(s): 10/04/20 - 11/03/20 [facility] [address] [address]- [place] Allergies, Adverse Reactions, Alerts Substance Reaction [...] 09/03/08 Given 1Admin Note: given at [facility] per patient Medications Aspirin Tablet 81 [...] 5, Maintenance,05/04/16 14:14:00, Route to Pharmacy Electronically, [id number], [id number] Start Date: 05/04/16 Stop Date: 10/31/16 Status: Ordered Problem List Condition Effective Dates Status Health Status Inform ant Anemia(Confirmed) Active BPH (benign prostatic hypertrophy)(Confirmed) Active CAD - Coronary artery disease(Confirmed) Active Hip pain(Confirmed) Active Ischemic colitis(Confirmed) Active Lipids abnormal(Confirmed) Active Low back pain(Confirmed) Active Parkinson disease(Confirmed) Active RLS (restless legs syndrome)(Confirmed) Active Thyroid nodule(Confirmed) 1 Active 76771 thyroid ultrasound no malignant features Social History Social History Type Response Smoking Status Never smoker entered on: 05/09/14 Sex
--- OUTSIDE RECORDS SUMMARY | 2023-08-25 10:01 | XMS_ITS | Continuity of Care Document ---
Author Name Unknown Organization [facility] Address [address] [address]- Care Team Providers Care Infrastructure Solutions Architect Name Role Phone Fernandez LINDSAY, Esther M Primary Care Physician [phone] Encounter [facility] [place] Date(s): 09/12/20 - 10/12/20 [facility] [address] [address]- [place] Allergies, Adverse Reactions, Alerts Substance Reaction [...] 09/03/08 Given 1Admin Note: given at [facility] per patient Medications Aspirin Tablet 81 [...] 5, Maintenance,05/04/16 14:14:00, Route to Pharmacy Electronically, [id number], [id number] Start Date: 05/04/16 Stop Date: 10/31/16 Status: Ordered Problem List Condition Effective Dates Status Health Status Inform ant Anemia(Confirmed) Active BPH (benign prostatic hypertrophy)(Confirmed) Active CAD - Coronary artery disease(Confirmed) Active Hip pain(Confirmed) Active Ischemic colitis(Confirmed) Active Lipids abnormal(Confirmed) Active Low back pain(Confirmed) Active Parkinson disease(Confirmed) Active RLS (restless legs syndrome)(Confirmed) Active Thyroid nodule(Confirmed) 1 Active 16648 thyroid ultrasound no malignant features Social History Social History Type Response Smoking Status Never smoker entered on: 05/09/14 Sex
--- OUTSIDE RECORDS SUMMARY | 2023-08-25 10:01 | XMS_ITS | Continuity of Care Document ---
Author Name Unknown Organization [facility] Address [address] [address]- Care Team Providers Care Paint Specialist Name Role Phone Richard Hood DO Primary Care Physician [place] [facility] [place] - 11/13/22 [facility] [address] [address]- Attending Physician: Emmanuel Sal MD Admitting Physician: Emmanuel Sal MD Referring Physician: Esther Kendrick NP Allergies, [...] 1 09/03/08 Given 1Admin Note: given at [facility] per patient Medications Aspirin Tablet 81 mg, By Mouth, Daily, Refills 0, Maintenance, 09/25/16 13:28:43 Start Date: 09/25/16 Status: Ordered atorvastatin 40 mg oral tablet 1 tablet = 40 mg, By Mouth, Daily, # 90 tablet, 3 Refills, Maintenance, 05/15/22 15:16:00 EDT, [facility]t, [id number], 180, cm, 12/03/21 11:29:00 EDT, [...] 12:38:00 EDT, Tablet, [facility] [address] [facility], 180, cm, 12/03/21 11:29:00 EDT, Height Start Date: 12/03/21 Stop Date: 11/28/22 Status: Ordered finasteride 5 mg oral tablet 1 tablet = 5 mg, By Mouth, Daily, # 90 tablet, 3 Refills, Maintenance, 09/21/22 10:55:00 EST, Tablet, [facility], 180, cm, 09/09/22 13:28:00 EST, Height, 93, [...] capsule, Refills 1, Route to Pharmacy Electronically, [facility], 180, cm, 12/03/21 11:29:00 EDT, [...] Confirmed Active Thyroid nodule 1 Confirmed Active 07449 thyroid ultrasound no malignant features Social History Social History Type Response Smoking Status Never smoker entered on: 05/09/14 Sex Patient Care team information Care Team Personnel Name: Richard Hood DO Position: Reference Physician Member Role: PCP Address: Address: [address] [place] [address] [place] [address]- Name: Delfina Tellez RN Position: Jomar NOLASCO RN Member Role: Primary Care Nurse Name: Agustina Camacho RN Position: S RN Member Role: Primary Care Nurse Name: Claudine Evans NP Position: Reference Physician Member Role: Primary Care Nurse Address: Address: [address] [place] [address]- Care Team Related Persons Name: JACOB RAYA Address: home [address] [place] [address] Name: LES RAYA Address: [place] [address]
--- OUTSIDE RECORDS SUMMARY | 2023-08-25 10:01 | XMS_ITS | Continuity of Care Document ---
Author Name Unknown Organization [facility] Address [address] [address]- Care Team Providers Care Domestic Technician Name Role Phone Richard Hood DO Kamron Primary Care Physician [phone] Encounter [facility] Date(s): 07/06/22 - 08/05/22 [facility] [address] [address]- [place] Allergies, Adverse Reactions, Alerts Substance Reaction [...] 1 09/03/08 Given 1Admin Note: given at [facility] per patient Medications Aspirin Tablet 81 mg, By Mouth, Daily, Refills 0, Maintenance, 09/25/16 13:28:43 Start Date: 09/25/16 Status: Ordered atorvastatin 40 mg oral tablet 1 tablet = 40 mg, By Mouth, Daily, # 90 tablet, 3 Refills, Maintenance, 05/15/22 15:16:00 EDT, [facility], [id number], 180, cm, 12/03/21 11:29:00 EDT, [...] Refills, Maintenance, 12/03/21 12:38:00 EDT, [facility]t, [facility], 180, cm, 12/03/21 11:29:00 EDT, [...] Maintenance, 05/27/22 11:30:00 EDT, ER [facility], Partial fill upon patient request [...] 16:17:00 EST, Route to Pharm[facility] Electronically, [facility], 180, cm, 07/21/21 8:15:00 EST, [...] 1, Route to [facility] Electronically[facility], 180, cm, 12/03/21 11:29:00 EDT, [...] Confirmed Active Thyroid nodule 1 Confirmed Active 20966 thyroid ultrasound no malignant features Social History Social History Type Response Smoking Status Never smoker entered on: 05/09/14 Sex Patient Care team information Care Team Personnel Name: Richard Hood DO Position: Reference Physician Member Role: PCP Address: Address: [address] [place] [address]- Name: Delfina Tellez RN Position: Jomar NOLASCO RN Member Role: Primary Care Nurse Name: Agustina Camacho RN Position: S RN Member Role: Primary Care Nurse Name: Claudine Evans NP Position: Reference Physician Member Role: Primary Care Nurse Address: Address: [address] [place] [address]- Care Team Related Persons Name: JACOB RAYA Address: home [address] [place] [address] Name: LES RAYA Address: [place] [address]
--- OUTSIDE RECORDS SUMMARY | 2023-08-25 10:01 | XMS_ITS | Continuity of Care Document ---
Author Name Unknown Organization [facility] Address [address] [address]- Care Team Providers Care Surgical Garment Assembly Supervisor Name Role Phone Richard Hood DO Primary Care Physician [place] [facility] [place] 11/25/22 - 12/02/22 [facility] [address] [address]- Attending Physician: Emmanuel Mckeon MD Admitting Physician: Emmanuel Mckeon MD Referring Physician: Richard Hood DO Allergies, [...] Refills, Maintenance, 05/15/22 15:16:00 EDT, [facility]t, [facility], 180, cm, 12/03/21 11:29:00 EDT, [...] capsule, Refills 1, Route to Pharmacy Electronically, [facility], 180, cm, 12/03/21 11:29:00 EDT, [...] Confirmed Active Thyroid nodule 1 Confirmed Active 20943 thyroid ultrasound no malignant features Vital Signs Most recent to oldest [Reference Range]: 1 2 Height 180 cm (11/25/22 9:22 AM) 180 cm (11/25/22 9:08 AM) Weight 92.4 kg (11/25/22 9:08 AM) Oxygen Saturation [94-100 %] 99 % (11/25/22 9:08 AM) Pulse Rate [55-90 bpm] 63 bpm (11/25/22 9:08 AM) Body Mass Index [18.5-24.99 kg/m2] 28.52 kg/m2 *H* (11/25/22 9:08 AM) Blood Pressure [90-138/55-84 mm Hg] 97/5 7mm Hg (11/25/22 9:08 AM) Blood pressure sites Arm, left (11/25/22 9:08 AM) Weight Obtained Via Standing scale (11/25/22 9:08 AM) Social History Social History Type Response Smoking Status Never smoker entered on: 05/09/14 Sex Cardiology Outpatient Note * Emmanuel Mckeon MD: PERFORM Event Display: Cardiology Note Office Authored Date: [id number] Patient: ??SULY RAYA ? Age:??81 Years?Sex:??Male?:??1940?? Patient Hx Provider Clinical Summary History: 1. ??CAD. Balloon angioplasty to the distal LAD in September 2016. ??There was gnwk-zu-qmulzloq disease in the circumflex and RCA with preserved LV function ??at that time. ??Aggressive medical management. 2. ??History of PTCA and bare-metal stent to LAD and diagonal in 2000 in [place]. ??Negative nuclearstress test September 2008. 3. ??Mild hyperlipidemia. 4. ??Mild sleep apnea. 5. ??BPH. 6. ??Inguinal hernia. 7. ??History of Parkinson's disease. 8.?? Orthostatic hypotension ?? Feeling better since his last cardiology visit.?? Now off of tamsulosin.?? 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 Propranolol is now prescribed by his neurologist. ?? Tolerating propranolol 20 mg p.o. twice daily ?? Return to clinic in??9 months Physical Exam Vitals & Measurements AZ:??63?? BP:??97/57?? BP:??97/57(Sitting)?? BP:??91/53(Standing)?? BP:??111/61(Supine)?? SpO2:??99%?? HT:??180??cm?? WT:??92.4??kg?? BMI:??28.52?? Weight lb/oz: 203 lb 11 oz GENERAL: ??Alert and oriented x3, no acute distress. HEENT: Mucous membranes pink and moist. ?? NECK: ??No JVD?? LUNGS: Clear to auscultation bilaterally. ??No crackles, wheezing, rhonchi. ?? HEART: ??Regular rate and rhythm, normal S1, S2. ??No murmurs, rubs, or gallops.?? ABDOMEN: Soft, nontender, nondistended.?? EXTREMITIES: ??No pitting edema, cyanosis, clubbing. ?? PULSES: 2+ radials SKIN: Warm and well perfused. ?? NEURO: ??Oriented to person, time, and place, following commands, and moving all extremities.?? MUSCULOSKELETAL: ??Negative.?? Allergies sulfa drugs Home Medications Aspirin Tablet, 81 mg, By Mouth, Daily atorvastatin 40 mg oral tablet, 40 mg= 1 tablet, By Mouth, Daily, 3 refills Azilect 1 mg oral tablet, 1 mg= 1 tablet, By Mouth, Daily, 5 refills finasteride 5 mg oral tablet, 5 mg= 1 tablet, By Mouth, Daily, 3 refills finasteride 5 mg oral tablet, 5 mg= 1 tablet, By Mouth, Daily, 3 refills gabapentin 300 mg oral capsule, 900 mg= 3 capsule, By Mouth, Daily at bedtime Magnesium Chloride Mirapex 0.25 mg oral tablet, See Instructions, 0.25 mg By Mouth 3 times a day plus an addition 0.50mg at bedtime Multivitamin, By Mouth, Daily Nitrostat 0.4 mg sublingual tablet, 0.4 mg= 1 tablet, Sublingual, Every 5 minutes, PRN, not to exceed 3 doses/15 min--if pain persists, seek medical attention Propranolol, 20 mg, By Mouth, 2 times a day Sinemet 25 mg-100 mg oral tablet, 1.5 tablet, By Mouth, 4 times a day terazosin 5 mg oral capsule, 1 capsule, By Mouth, Daily at bedtime Diagnostic Impression ECG ECG 12-Lead ?? 11:34:56 Please click on pdf link to open report ?? Signed By: Emmanuel Mckeon MD ?? ECG 12-Lead ?? 11:34:56 Ventricular Rate: 69 BPM Atrial Rate: 69 BPM P-R Interval: 206 ms QRS Duration: 72 ms Q-T Interval: 386 ms QTC Calculation(Bazett): 413 ms P [place]: 65 degrees R [place]: 44 degrees T [place]: 67 degrees Normal sinus rhythm Normal ECG When compared with ECG of 21-JUL-2021 09:10, No significant change was found Confirmed by EMMANUEL MCKEON ([id number]) on 10/18/2022 6:12:02 PM ?? [place]: EMMANUEL MCKEON ?? Signed By: Emmanuel Mckeon MD Stress Test NM Myocard Perf SPECT Multi ?? 11:16:27 Summary Normal. No evidence of stress induced ischemia or prior myocardial infarction. Normal left ventricular ejection fraction, no wall motion abnormalities, normal chamber size. Low likelihood of hemodynamically significant coronary artery disease. Compared with report of study from 2017 there has been resolution of ischemia . ?? Signatures _ _ ?? Signed By: Dez Armstrong MD Echo Echocardiogram - Complete ?? 09:00:09 Summary The left ventricle is normal in size. Wall thickness is mildly increased. Overall left ventricular systolic function is normal. LVEF visually estimated at 60-65%. There are no regional wall motion abnormalities. Normal diastolic function. The left atrium is mildly dilated. The right ventricle is normal in size and function. ?? Comparison Comparison is made to the study of September 09, 2020. The LA is now mildly dilated. No other definite interval change. ?? Signature ?? Signed By: Enrique Mcdermott MD Problem List/Past Medical History Ongoing Anemia BPH (benign prostatic hypertrophy) CAD - Coronary artery disease Hip pain Ischemic colitis Lipids abnormal Low back pain Parkinson disease RLS (restless legs syndrome) Thyroid nodule Historical No qualifying data Procedure/Surgical History Angioplasty: 2000 Excision of lumbar intervertebral disc: 1970 Rjini repair of inguinal hernia Follow-Up Appointments Added Follow Up ?Time Frame ?Comments Cecilia Agustin?9 ?? Weeks Emmanuel Mckeon Social History Alcohol Use: Current. Other: rare., 05/09/2014 Employment/School Status: Retired. 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 Other: walks 45min a day., 05/09/2014 Home/Environment Living situation: Home/Independent. Lives with: Spouse. Other: pt lives in [place] with his andhas four children., 05/09/2014 Sexual Sexual orientation: Heterosexual., 04/28/2016 Substance Abuse Use: Never., 05/09/2014 Tobacco Use: Never smoker., 05/09/2014 Family History Mother: Dementia; Diabetes mellitus type II Father (): CAD - Coronary artery disease; Diabetes mellitus type II; Thyroid disease Note * Lisa Menendez: PERFORM, SIGN, VERIFY Event Display: Patient Education/Instruction Authored Date: [id number] [facility]rt Vas Off Clinical Summary Name SULY RAYA Age 81 Years 1940 PCP Richard Hood DO PCP Visit Date Additional Instructions: Scheduled Appointments?? Future Appointments ?No Future Appointments Scheduled Follow-Up Instructions ?? With: Address: When: Cecilia Agustin [address] [place] [address] [place] [address] [facility] In 9 months 08/27/2023 With: Address: When: Emmanuel Mckeon Diagnosis Medications: Please continue your medications until [...] Carbidopa-Levodopa (Sinemet 25 mg-100 mg oral tablet) 1.5 tab(s) Oral 4 times a day. Next Dose: Finasteride (finasteride 5 mg oral tablet) 1 tab(s) Oral Daily for 90 Days. Refills: 3. Next Dose: Finasteride (finasteride 5 mg oral tablet) 1 tab(s) Oral Daily for 90 Days. Refills: 3. Next Dose: Gabapentin (gabapentin 300 mg oral capsule) 3 capsule Oral Daily at Bedtime. Next Dose: Magnesium Chloride Next Dose: Multivitamin Oral Daily. Next Dose: Nitroglycerin (Nitrostat 0.4 mg sublingual tablet) 1 tab(s) Sublingual every 5 minutes as needed for chest pain. not to exceed 3 doses/15 min--if pain persists, seek medical attention. Refills: 0. Next Dose: Pramipexole (Mirapex 0.25 mg oral tablet) 0.25 mg By Mouth 3 times a day plus an addition 0.50 mg at bedtime. Next Dose: Propranolol 20 Milligram Oral twice a day. Next Dose: rasagiline (Azilect 1 mg oral tablet) 1 tab(s) Oral Daily for 30 Days. Refills: 5. Next Dose: Terazosin (terazosin 5 mg oral capsule) 1 capsule Oral Daily at Bedtime. Refills: 1. Next Dose: Allergy Info:?? sulfa drugs Medications Given This Visit Future Orders ?No future orders Vital Signs Height 180 cm Weight 92.4 kg BMI 28.52 kg/m2 Blood Pressure 97 mm Hg/57 mm Hg Temperature Pulse Rate 63 bpm Respiratory Rate 02 Sat Mode of Delivery 99 %/ You can now view a summary of your hospital visit from the comfort of your home through a free online portal called [employer]. [employer] is a website that allows you to securely view your medical information including discharge summary, medications and follow-up visits. ??You can alsosend a secure electronic message to your doctor???s office to request appointments, renew medications or just ask a question. You can enroll at [email or web address] or register during your next office visit. [...] primary care provider, you may find a [facility] provider by calling [facility] at [phone]. For information about the plan of care [...] Reference Physician Member Role: PCP Address: Address: [address] [place] [address] [place] [address]- [place] Name: Geoff RN, Delfina Position: S RN Member Role: Primary Care Nurse Name: Agustina Cmaacho RN Position: S RN Member Role: Primary Care Nurse Name: Claudine Evans NP Position: Reference Physician Member Role: Primary Care Nurse Address: Address: [address] [place] [address]- Care Team Related Persons Name: JACOB RAYA Address: home [address] [place] [address] Name: LES RAYA Address: [place] [address]
--- OUTSIDE RECORDS SUMMARY | 2023-08-25 10:01 | XMS_ITS | Continuity of Care Document ---
Author Name Unknown Organization [facility] Address [address] [address]- Care Team Providers Care Chief Radiologic Technologist Name Role Phone Alex Patel MD Primary Care Physician Encounter [facility] Date(s): 09/25/20 - 10/02/20 [place] [id number] [address]- Attending Physician: Dez Armstrong MD Admitting Physician: [...] 5, Maintenance,05/04/16 14:14:00, Route to Pharmacy Electronically, [id number], [id number] [place] Start Date: 05/04/16 Stop Date: 10/31/16 Status: Ordered Problem List Condition Effective Dates Status Health Status Inform ant Anemia(Confirmed) Active BPH (benign prostatic hypertrophy)(Confirmed) Active CAD - Coronary artery disease(Confirmed) Active Hip pain(Confirmed) Active Ischemic colitis(Confirmed) Active Lipids abnormal(Confirmed) Active Low back pain(Confirmed) Active Parkinson disease(Confirmed) Active RLS (restless legs syndrome)(Confirmed) Active Thyroid nodule(Confirmed) 1 Active 63946 thyroid ultrasound no malignant features Social History Social History Type Response Smoking Status Never smoker entered on: 05/09/14 Sex
--- OUTSIDE RECORDS SUMMARY | 2023-08-25 10:01 | XMS_ITS | Continuity of Care Document ---
Author Name Unknown Organization [facility] Address [address] [address]- Care Team Providers Care Railcar Carpenter Name Role Phone Alex Patel MD Primary Care Physician [phone] Encounter [facility] Date(s): 08/30/20 - 09/29/20 [facility] [address] [address]- Attending Physician: Andie Mcqueen Admitting Physician: Andie [...] 1 09/03/08 Given 1Admin Note: given at [facility] patient Medications Aspirin Tablet 81 [...] 5, Maintenance,05/04/16 14:14:00, Route to Pharmacy Electronically, [id number], [id number] [place] Start Date: 05/04/16 Stop Date: 10/31/16 Status: Ordered Problem List Condition Effective Dates Status Health Status Inform ant Anemia(Confirmed) Active BPH (benign prostatic hypertrophy)(Confirmed) Active CAD - Coronary artery disease(Confirmed) Active Hip pain(Confirmed) Active Ischemic colitis(Confirmed) Active Lipids abnormal(Confirmed) Active Low back pain(Confirmed) Active Parkinson disease(Confirmed) Active RLS (restless legs syndrome)(Confirmed) Active Thyroid nodule(Confirmed) 1 Active 21685 thyroid ultrasound no malignant features Social History Social History Type Response Smoking Status Never smoker entered on: 05/09/14 Sex
--- NOTE | 2023-08-25 10:07 | MHC.OFFVIS ---
Intake Intake Visit Reasons: Urinary urgency Intake Note: New Patient presents for initial visit for urinary urgency Urology Medications: finasteride Blood Thinner: aspirin PVR: 53ml's Cartographic Engineer Required: No Accompanied by: Spouse Allergies Sulfa (Sulfonamide Antibiotics) Allergy (Verified 08/25/23 11:00) Unknown Medication List - Last Reviewed 08/25/23 by Dylan Funez aspirin 81 mg PO DAILY atorvastatin 40 mg PO DAILY carbidopa-levodopa 25-100 mg tabs PO finasteride 5 mg PO DAILY gabapentin 300 mg PO TID nitroglycerin mg sublingual pramipexole mg PO propranolol 10 mg PO BID rasagiline 1 mg PO DAILY HPI HPI Comments History of Present Illness Details Gian is a very pleasant 82-year-old male patient of . He has a past medical history of Parkinson's disease, erectile dysfunction, and coronary artery disease status post angioplasty and followed by cardiology. He presents to the office today as a new patient for lower urinary tract symptoms. He discusses having followed up with [facility] urology as well as [facility] in the past. In review of patient's chart it appears patient status post prostate biopsy several years ago with negative pathology for prostate cancer. PSA at time of biopsy was 4. He presents to the office today with reports of worsening urinary frequency, urgency, and urge incontinence. In review of patient's chart it appears he had been on combination medical therapy with terazosin and finasteride for many years however per Cardiology and Neurology terazosin was discontinued. He has also trialed Myrbetriq 25 mg daily and did not find this helpful and discusses how unfortunate it was that it was unhelpful because it was expensive. He discusses wearing adult diapers daily. He ambulates with a walker so the time to reach the bathroom is delayed. He otherwise denies hematuria, dysuria, foul smelling urine, flank pain, fever, and or chills. Discussed obtaining retroperitoneal ultrasound for further assessment evaluation as well as PSA. Discussed importance of timed/scheduled voiding to assist with decreasing episodes of incontinence given decreased mobility. Discussed possible near future in office cystoscopy and or urodynamics for further assessment evaluation. In office urinalysis results reviewed with the patient today. PVR 53ml's. Discussed at length Parkinson's in regards to lower urinary tract symptoms patient is experiencing as well as affects of Parkinson's medications on the bladder. [facility], [facility] Medical History (Updated 08/25/23 @ 15:18 by Dylan Funez) Thyroid nodule Restless leg syndrome Low back pain Lipids abnormal Ischemic colitis Hip pain CAD (coronary artery disease) Anemia History of balanitis Erectile dysfunction Parkinson disease Urge incontinence Urinary urgency Review of Systems Eyes Reports no additional complaints ENT Reports no additional complaints Card Reports as per HPI Resp Reports no additional complaints GI Reports no additional complaints Reports as per HPI Musc Reports as per HPI Neuro Reports as per HPI Psych Reports no additional complaints Endo Reports no additional complaints Abdon/Lymph Reports no additional complaints Aller/Immun Reports no additional complaints Physical Exam Const General: cooperative, healthy appearing, comfortable, no acute distress, well developed, alert and awake Orientation/consciousness: patient oriented x3 Limitations: ambulation with walker HEENT Head: Yes normal to inspection, Yes normocephalic and Yes atraumatic Ears: hearing grossly normal bilaterally Eyes General: appearance normal, both eyes and all related structures Neck Neck: Yes normal visual inspection and Yes trachea midline Chest Chest palpation & inspection: normal inspection of the chest Resp Effort & Inspection: normal respiratory effort and able to speak in complete sentences Cardio Rate: regular rate GI Inspection: Yes normal to inspection General: Yes no CVA tenderness Back/Spine/Pelvis Back: no CVA tenderness Skin General skin exam: no rashes or lesions noted Neuro General: patient oriented x3 Extrem General: Yes normal to inspection Psych Appearance: grossly normal and well kempt Mental Status: mental status grossly normal Speech and movement: Normal speech and movement present and Clear speech present Affect: normal affect Attitude: cooperative Thought process: Normal thought process present Thought content: Normal thought content present Insight: Fair insight present (Psych) Judgement: Fair judgement present (Psych) Office Procedures Post Void Residual Post Residual Void Post Void Residual (PVR): 53 [id number] Void Residual by ultrasound Results AMB Urinalysis, Automated UA Leukoctes 15 Edgardo/uL Last Edit by Dylan Funez on 08/25/23 10:45 UA Nitrite Negative Last Edit by Dylan Funez on 08/25/23 10:45 UA Urobilinogen 0.2 mg/dL Last Edit by Dylan Funez on 08/25/23 10:45 UA Protein 30 mg/dL Last Edit by Dylan Funez on 08/25/23 10:45 UA pH 6.0 Last Edit by Dylan Ineskristian on 08/25/23 10:45 UA Blood 0 Awais/uL Last Edit by Dylan Funez on 08/25/23 10:45 UA Specific [place] 1.020 Last Edit by Dylan Funez on 08/25/23 10:45 UA Ketone Positive Last Edit by Dylan Funez on 08/25/23 10:45 UA Bilirubin 1 mg/dL Last Edit by Dylan Funez on 08/25/23 10:45 UA Glucose 0 mg/dL Last Edit by Dylan Funez on 08/25/23 10:45 Results Reviewed Results Reviewed: Laboratory Last Values Urine pH (Auto) 6.0 08/25/23 10:34 Specific [place] (Auto) 1.020 08/25/23 10:34 Urine Protein (Auto) 30 mg/dL 08/25/23 10:34 Glucose (UA)(Auto) 0 mg/dL 08/25/23 10:34 Urine Ketones (Auto) Positive 08/25/23 10:34 Urine Blood (Auto) 0 Awais/uL 08/25/23 10:34 Urine Nitrite (Auto) Negative 08/25/23 10:34 Urine Bilirubin (Auto) 1 mg/dL 08/25/23 10:34 Urine Urobilinogen (Auto) 0.2 mg/dL 08/25/23 10:34 Leukocyte Esterase (Auto) 15 Edgardo/uL 08/25/23 10:34 Assessment & Plan Assessment & Plan (1) Lower urinary tract symptoms: Code(s): R39.9 - Unspecified symptoms and signs involving the genitourinary system (2) BPH (benign prostatic hyperplasia): Code(s): N40.0 - Benign prostatic hyperplasia without lower urinary tract symptoms Plan In office urinalysis results reviewed with the patient today. PVR 53 mL. Discussed at length potential causes for lower urinary tract symptoms patient is experiencing. Will obtain retroperitoneal ultrasound for further assessment evaluation. Will obtain PSA for further assessment evaluation. Will trial VESIcare Discussed near future in office cystoscopy and urodynamics for further assessment evaluation. Does as importance of timed/scheduled voiding to assist with decreasing episodes of incontinence with decreased mobility. Discussed cystoscopy for further assessment evaluation to include question of bladder Botox and or InterStim. Follow-up in 1-2 months with imaging and lab to be completed prior; or sooner with any issues, concerns, and or questions Orders: Orders AMB Urinalysis Automated Today Z13.9 - Encounter for screening, unspecified AMB Post Void Residual by ultrasound Today Z13.9 - Encounter for screening, unspecified US retroperitoneal comp Today R39.9 - Unspecified symptoms and signs involving the genitourinary system Prostate Specific Antigen Today N40.0 - Benign prostatic hyperplasia without lower urinary tract symptoms Medications: New solifenacin (Vesicare) 10 mg PO DAILY 30 days 30 tabs 1RF Patient Instructions: The patient had an opportunity to ask questions regarding the treatment plan. All questions were answered. Physical exam, labs, and imaging were discussed and reviewed in detail. As well as risks, benefits, and discussion of treatment choices. No major barriers to understanding were identified. The patient expressed understanding and agreement with the above treatment plan. The patient was made aware they should contact our office by phone for worsening of their current condition, the appearance of new symptoms, or with any questions or concerns. Compliance is encouraged with any medications and follow up testing that is ordered. It is a privilege to be allowed the opportunity to participate in? your urological care.? Again, if you have any questions or concerns If you have any questions or concerns please do not hesitate to contact me. The office is [phone]. This note is constructed using voice recognition software. While every effort has been made to ensure accuracy peoplesoft functional analyst errors may have been included. Yours sincerely, FIDENCIO Meng Coding Level of Care Code New Pt Level 4 (86871) Diagnoses Lower urinary tract symptoms R39.9 BPH (benign prostatic hyperplasia) N40.0 CPT Codes Post Residual Void - PVR CPT Code: 25183-Czjn Void Residual by ultrasound ([id number])
== END 2023-08-25 10:53 | disposition home or self-care (01) ==
LOC: HO.HUSH 09:59
PROVIDERS: PCP Pediatrics; Visit Provider Nurse Practitioner Family
DX: R39.9 Unspecified symptoms and signs involving the genitourinary system (principal); N40.0 Benign prostatic hyperplasia without lower urinary tract symptoms
CPT/HCPCS: 99204

== ENCOUNTER → 2023-08-25 09:59 | Outpatient (BNVA) | payer BC, SELFPAY | PROVIDERS: PCP Pediatrics; Visit Provider Nurse Practitioner Family | DX: N40.1 Benign prostatic hyperplasia with lower urinary tract symptoms (principal); R39.15 Urgency of urination; R35.0 Frequency of micturition; R39.9 Unspecified symptoms and signs involving the genitourinary system; N52.9 Male erectile dysfunction, unspecified; G20.A1 Parkinson's disease without dyskinesia, without mention of fluctuations | CPT/HCPCS: 51798; 81003 ==

== ENCOUNTER 2023-10-04 13:31 | Outpatient (REF) | payer BC, SELFPAY ==
--- NOTE | ~2023-10-04 | US_ITS ---
EXAMINATION: US RETROPERITONEAL COMPLETE (RENAL) CLINICAL INFORMATION: Lower urinary tract symptoms. COMPARISON: None available. TECHNIQUE: Real-time imaging of the kidneys and bladder. FINDINGS: RIGHT KIDNEY: 11.5 x 6.1 x 6.4 cm (SAG x AP x TRV). The kidney is normal in size, contour, and echogenicity. Renal cortical thickness is normal. No renal calculi or hydronephrosis. There is an 8.4 x 7.2 x 8.3 cm simple exophytic upper pole cyst for which no dedicated imaging follow-up is recommended. LEFT KIDNEY: 10.7 x 6.2 x 5.1 cm (SAG x AP x TRV). The kidney is normal in size, contour, and echogenicity. Renal cortical thickness is normal. No renal calculi or hydronephrosis. There is a 1.8 x 0.9 x 1.0 cm lower pole cyst for which no dedicated imaging follow-up is recommended. BLADDER: Well distended. Right ureteral jet is demonstrated; left is not. Prevoid bladder volume is 236 mL. Postvoid bladder volume is 36.4 mL. Multiple small bladder diverticula are seen. Enlarged prostate, volume 67.9 mL. US/US retroperitoneal comp IMPRESSION: 1. Bilateral simple renal cysts for which no dedicated imaging follow-up is recommended. 2. Small to moderate post void residual. 3. Multiple small bladder diverticula. 4. Markedly enlarged prostate.
== END 2023-10-04 13:32 | disposition home or self-care (01) ==
LOC: HO.US 13:31
PROVIDERS: PCP Pediatrics; Visit Provider Nurse Practitioner Family
DX: R39.9 Unspecified symptoms and signs involving the genitourinary system (principal)
CPT/HCPCS: 76770

== ENCOUNTER 2023-10-15 13:47 | Outpatient (AMB) | payer BC, SELFPAY ==
--- NOTE | 2023-10-15 14:00 | A.OFFVIS_ITS ---
Intake Intake Visit Reasons: 7w/US/PSA Intake Note: Patient presents for initial visit for urinary urgency and PSA lab results PSA: 1.58 Urology Medications: finasteride, d/c vesicare Blood Thinner: aspirin PVR: 23ml's Triple Valve Tester Required: No Allergies Sulfa (Sulfonamide Antibiotics) Allergy (Verified 10/16/23 21:23) Unknown Medication List - Last Reconciled 10/16/23 by ALEENA Meng- aspirin 81 mg PO DAILY atorvastatin 40 mg PO DAILY carbidopa-levodopa 25-100 mg tabs PO finasteride 5 mg PO DAILY gabapentin 300 mg PO TID mirabegron ER (Myrbetriq) 25 mg PO DAILY 30 days nitroglycerin mg sublingual pramipexole mg PO propranolol 10 mg PO BID rasagiline 1 mg PO DAILY HPI HPI Comments History of Present Illness Details Gian is a very pleasant 82-year-old male patient of Dr. Hood who was accompanied by his at today's office visit.. He has a past medical history of Parkinson's disease, erectile dysfunction, and coronary artery disease status post angioplasty and followed by cardiology. He presents to the office today for follow-up. Of note, patient was seen approximately 6 weeks ago as a new patient for lower urinary tract symptoms at which time a retroperitoneal ultrasound was ordered for further assessment evaluation and the patient was started on 10 mg of VESIcare. Recent retroperitoneal ultrasound results reviewed with the patient and his today. Bilateral kidneys with no calculi and or hydronephrosis noted. There are bilateral cysts which require no imaging follow-up per radiology report. The bladder is well distended. Pre void bladder volume is approximately 240 mL. Postvoid bladder volume is approximately 40 mL. Multiple small bladder diverticula are seen. Enlarged prostate of approximately 68 mL. He reports having since stopped VESIcare as prescribed due to confusion he had been experiencing. He reports that although he has not on any overactive bladder medications he does feel symptoms have somewhat improved. He does however feel they are bothersome. He reports worsening urinary frequency, urgency, and urge incontinence. He discusses having followed up with [facility] urology as well as [facility] in the past. In review of patient's chart it appears patient status post prostate biopsy several years ago with negative pathology for prostate cancer. PSA at time of biopsy was 4. In review of patient's chart it appears he had been on combination medical therapy with terazosin and finasteride for many years however per Cardiology and Neurology terazosin was discontinued. He has also trialed Myrbetriq 25 mg daily and did not find this helpful and discusses how unfortunate it was that it was unhelpful because it was expensive. He discusses wearing adult diapers daily. He ambulates with a walker so the time to reach the bathroom is delayed. He otherwise denies hematuria, dysuria, foul smelling urine, flank pain, fever, and or chills. Recent PSA results reviewed with the patient and his today. PSA 10/06--1.6. Discussed importance of timed/scheduled voiding to assist with decreasing episodes of incontinence given decreased mobility. Discussed possible near future in office cystoscopy and or urodynamics for further assessment evaluation. In office urinalysis results reviewed with the patient today. PVR 23ml's. Discussed at length Parkinson's in regards to lower urinary tract symptoms patient is experiencing as well as affects of Parkinson's medications on the bladder. [facility] Medical History Thyroid nodule Restless leg syndrome Low back pain Lipids abnormal Ischemic colitis Hip pain CAD (coronary artery disease) Anemia History of balanitis Erectile dysfunction Parkinson disease Urge incontinence Urinary urgency Review of Systems Eyes Reports no additional complaints ENT Reports no additional complaints Card Reports as per HPI Resp Reports no additional complaints GI Reports no additional complaints Reports as per HPI Musc Reports as per HPI Neuro Reports as per HPI Psych Reports no additional complaints Endo Reports no additional complaints Abdon/Lymph Reports no additional complaints Aller/Immun Reports no additional complaints Physical Exam Const General: cooperative, healthy appearing, comfortable, no acute distress, well developed, alert and awake Orientation/consciousness: patient oriented x3 Limitations: ambulation with walker HEENT Head: Yes normal to inspection, Yes normocephalic and Yes atraumatic Ears: hearing grossly normal bilaterally Eyes General: appearance normal, both eyes and all related structures Neck Neck: Yes normal visual inspection and Yes trachea midline Chest Chest palpation & inspection: normal inspection of the chest Resp Effort & Inspection: normal respiratory effort and able to speak in complete sentences Cardio Rate: regular rate GI Inspection: Yes normal to inspection General: Yes no CVA tenderness Back/Spine/Pelvis Back: no CVA tenderness Skin General skin exam: no rashes or lesions noted Neuro General: patient oriented x3 Extrem General: Yes normal to inspection Psych Appearance: grossly normal and well kempt Mental Status: mental status grossly normal Speech and movement: Normal speech and movement present and Clear speech present Affect: normal affect Attitude: cooperative Thought process: Normal thought process present Thought content: Normal thought content present Insight: Fair insight present (Psych) Judgement: Fair judgement present (Psych) Office Procedures Post Void Residual Post Residual Void Post Void Residual (PVR): 23 33523-Necx Void Residual by ultrasound Results AMB Urinalysis, Automated UA Leukoctes 0 Edgardo/uL Last Edit by Eurekster on 10/15/23 14:15 UA Nitrite Negative Last Edit by Eurekster on 10/15/23 14:15 UA Urobilinogen 0.2 mg/dL Last Edit by Eurekster on 10/15/23 14:15 UA Protein 15 mg/dL Last Edit by Eurekster on 10/15/23 14:15 UA pH 6.0 Last Edit by Eurekster on 10/15/23 14:15 UA Blood 0 Awais/uL Last Edit by Eurekster on 10/15/23 14:15 UA Specific [place] 1.030 Last Edit by Eurekster on 10/15/23 14:15 UA Ketone Positive Last Edit by Eurekster on 10/15/23 14:15 UA Bilirubin 0 mg/dL Last Edit by Eurekster on 10/15/23 14:15 UA Glucose 0 mg/dL Last Edit by Eurekster on 10/15/23 14:15 Results Reviewed Results Reviewed: Laboratory Last Values Urine pH (Auto) 6.0 10/15/23 14:05 Specific [place] (Auto) 1.030 10/15/23 14:05 Urine Protein (Auto) 15 mg/dL 10/15/23 14:05 Glucose (UA)(Auto) 0 mg/dL 10/15/23 14:05 Urine Ketones (Auto) Positive 10/15/23 14:05 Urine Blood (Auto) 0 Awais/uL 10/15/23 14:05 Urine Nitrite (Auto) Negative 10/15/23 14:05 Urine Bilirubin (Auto) 0 mg/dL 10/15/23 14:05 Urine Urobilinogen (Auto) 0.2 mg/dL 10/15/23 14:05 Leukocyte Esterase (Auto) 0 Edgardo/uL 10/15/23 14:05 Date of Service: 10/04/23 EXAMINATION: US RETROPERITONEAL COMPLETE (RENAL) FINDINGS: RIGHT KIDNEY: 11.5 x 6.1 x 6.4 cm (SAG x AP x TRV). The kidney is normal in size, contour, and echogenicity. Renal cortical thickness is normal. No renal calculi or hydronephrosis. There is an 8.4 x 7.2 x 8.3 cm simple exophytic upper pole cyst for which no dedicated imaging follow-up is recommended. LEFT KIDNEY: 10.7 x 6.2 x 5.1 cm (SAG x AP x TRV). The kidney is normal in size, contour, and echogenicity. Renal cortical thickness is normal. No renal calculi or hydronephrosis. There is a 1.8 x 0.9 x 1.0 cm lower pole cyst for which no dedicated imaging follow-up is recommended. BLADDER: Well distended. Right ureteral jet is demonstrated; left is not. Prevoid bladder volume is 236 mL. Postvoid bladder volume is 36.4 mL. Multiple small bladder diverticula are seen. Enlarged prostate, volume 67.9 mL. IMPRESSION: 1. Bilateral simple renal cysts for which no dedicated imaging follow-up is recommended. 2. Small to moderate post void residual. 3. Multiple small bladder diverticula. 4. Markedly enlarged prostate. 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 PVR 23 mL. Recent retroperitoneal ultrasound results reviewed with the patient today; as noted above. Recent PSA results reviewed with the patient today; as noted above. Stop VESIcare. Start Gemtesa 75 mg daily as discussed and prescribed. Discussed at length potential causes for lower urinary tract symptoms patient is experiencing. Discussed near future in office cystoscopy and urodynamics for further assessment evaluation. Does as importance of timed/scheduled voiding to assist with decreasing episodes of incontinence with decreased mobility. Discussed cystoscopy for further assessment evaluation to include question of bladder Botox and or InterStim. Follow-up in 6 weeks with PVR; or sooner with any issues, concerns, and or questions. Orders: Orders AMB Urinalysis Automated 10/15/23 Z13.9 - Encounter for screening, unspecified AMB Post Void Residual by ultrasound 10/15/23 R39.9 - Unspecified symptoms and signs involving the genitourinary system Medications: New vibegron (Gemtesa) 75 mg PO DAILY 30 tabs 1RF 30 days N32.81 - Overactive bladder Discontinued solifenacin Discontinued Reason: Doctor's Order 10 mg PO DAILY 30 days 30 tabs 1RF Coding Level of Care Code Est Pt Level 4 (32918) Diagnoses Lower urinary tract symptoms R39.9 Renal cyst N28.1 Diverticula, bladder N32.3 CPT Codes Post Residual Void - PVR CPT Code: 73383-Lvoa Void Residual by ultrasound ([id number])
== END 2023-10-15 14:44 | disposition home or self-care (01) ==
PROVIDERS: PCP Pediatrics; Visit Provider Nurse Practitioner Family
DX: R39.9 Unspecified symptoms and signs involving the genitourinary system (principal); N28.1 Cyst of kidney, acquired; N32.3 Diverticulum of bladder
CPT/HCPCS: 99214

== ENCOUNTER → 2023-10-15 13:47 | Outpatient (BNVA) | payer BC, SELFPAY | PROVIDERS: PCP Pediatrics; Visit Provider Nurse Practitioner Family | DX: R39.9 Unspecified symptoms and signs involving the genitourinary system (principal); N28.1 Cyst of kidney, acquired; N32.3 Diverticulum of bladder | CPT/HCPCS: 51798; 81003 ==

== ENCOUNTER 2023-11-26 13:59 | Outpatient (AMB) | payer BC, SELFPAY ==
--- NOTE | 2023-11-26 14:06 | A.OFFVIS_ITS ---
Intake Intake Visit Reasons: 6w/PVR Intake Note: Patient presents for follow up visit for renal cyst and LUTS Urology Medications: D/C Vesicare, Gemtesa, Finasteride Blood Thinner: Aspirin PVR: 0ml's Cobbler Mckay Required: No Allergies Sulfa (Sulfonamide Antibiotics) Allergy (Verified 11/26/23 16:20) Unknown Medication List - Last Reconciled 11/26/23 by ASAF MengP- aspirin 81 mg PO DAILY atorvastatin 40 mg PO DAILY carbidopa-levodopa 25-100 mg tabs PO finasteride 5 mg PO DAILY gabapentin 300 mg PO TID nitroglycerin mg sublingual pramipexole mg PO propranolol 10 mg PO BID rasagiline 1 mg PO DAILY vibegron (Gemtesa) 75 mg PO DAILY 90 days HPI HPI Comments History of Present Illness Details Gian is a very pleasant 82-year-old male patient of who was accompanied by his at today's office visit. He has a past medical history of Parkinson's disease, erectile dysfunction, and coronary artery disease status post angioplasty and followed by cardiology. He presents to the office today for follow-up. Of note, patient was seen approximately 6 weeks ago at which time he was started on Gemtesa 75mg daily for his ongoing lower urinary tract symptoms. In discussion with the patient today he reports noting significant improvement in lower urinary tract symptoms. He reports noting significant improvement in urinary urgency. He does continue with episodes of incontinence in the morning however relates this to his inability to get to the bathroom in time given his decreased mobility with his Parkinson's. He reports that although he continues with urinary issues they are not bothersome. He is happy with his current voiding parameters on Gemtesa. Discussed possible near future in office cystoscopy for further assessment evaluation if symptoms arise and or worsen. Previous workup has included a retroperitoneal ultrasound noting bilateral kidneys with no calculi and or hydronephrosis noted. There are bilateral cysts which require no imaging follow-up per radiology report. The bladder is well distended. Pre void bladder volume is approximately 240 mL. Postvoid bladder volume is approximately 40 mL. Multiple small bladder diverticula are seen. Enlarged prostate of approximately 68 mL. He has previously trialed terazosin, finasteride, Myrbetriq, and VESIcare all in which have not been helpful in treating his lower urinary tract symptoms. Patient with a history of prostate biopsy several years ago at [facility]. PSA at time of biopsy was 4. In review of patient's chart it appears he had been on combination medical therapy with terazosin and finasteride for many years however per Cardiology and Neurology terazosin was discontinued. He discusses wearing adult diapers daily. He ambulates with a walker so the time to reach the bathroom is delayed. He otherwise denies hematuria, dysuria, foul smelling urine, flank pain, fever, and or chills. Recent PSA results reviewed with the patient and his today. PSA 10/06--1.6. Discussed importance of timed/scheduled voiding to assist with decreasing episodes of incontinence given decreased mobility. In office urinalysis results reviewed with the patient today. PVR 0ml's. Discussed at length Parkinson's in regards to lower urinary tract symptoms patient is experiencing as well as affects of Parkinson's medications on the bladder. [facility] Medical History Thyroid nodule Restless leg syndrome Low back pain Lipids abnormal Ischemic colitis Hip pain CAD (coronary artery disease) Anemia History of balanitis Erectile dysfunction Parkinson disease Urge incontinence Urinary urgency Review of Systems Eyes Reports no additional complaints ENT Reports no additional complaints Card Reports as per HPI Resp Reports no additional complaints GI Reports no additional complaints Reports as per HPI Musc Reports as per HPI Neuro Reports as per HPI Psych Reports no additional complaints Endo Reports no additional complaints Abdon/Lymph Reports no additional complaints Aller/Immun Reports no additional complaints Physical Exam Const General: cooperative, healthy appearing, comfortable, no acute distress, well developed, alert and awake Orientation/consciousness: patient oriented x3 Limitations: ambulation with walker HEENT Head: Yes normal to inspection, Yes normocephalic and Yes atraumatic Ears: hearing grossly normal bilaterally Eyes General: appearance normal, both eyes and all related structures Neck Neck: Yes normal visual inspection and Yes trachea midline Chest Chest palpation & inspection: normal inspection of the chest Resp Effort & Inspection: normal respiratory effort and able to speak in complete sentences Cardio Rate: regular rate GI Inspection: Yes normal to inspection General: Yes no CVA tenderness Back/Spine/Pelvis Back: no CVA tenderness Skin General skin exam: no rashes or lesions noted Neuro General: patient oriented x3 Extrem General: Yes normal to inspection Psych Appearance: grossly normal and well kempt Mental Status: mental status grossly normal Speech and movement: Normal speech and movement present and Clear speech present Affect: normal affect Attitude: cooperative Thought process: Normal thought process present Thought content: Normal thought content present Insight: Fair insight present (Psych) Judgement: Fair judgement present (Psych) Office Procedures Post Void Residual Post Residual Void Post Void Residual (PVR): 0 [id number]-Tcfa Void Residual by ultrasound Results AMB Urinalysis, Automated UA Leukoctes 15 Edgardo/uL Last Edit by [employer] on 11/26/23 14:36 UA Nitrite Negative Last Edit by [employer] on 11/26/23 14:36 UA Urobilinogen 0.2 mg/dL Last Edit by [employer] on 11/26/23 14:36 UA Protein 30 mg/dL Last Edit by [employer] on 11/26/23 14:36 UA pH 7.0 Last Edit by [employer] on 11/26/23 14:36 UA Blood 0 Awais/uL Last Edit by [employer] on 11/26/23 14:36 UA Specific Adin 1.015 Last Edit by [employer] on 11/26/23 14:36 UA Ketone Negative Last Edit by [employer] on 11/26/23 14:36 UA Bilirubin 1 mg/dL Last Edit by [employer] on 11/26/23 14:36 UA Glucose 0 mg/dL Last Edit by [employer] on 11/26/23 14:36 Results Reviewed Results Reviewed: Laboratory Last Values Urine pH (Auto) 7.0 11/26/23 14:18 Specific Adin (Auto) 1.015 11/26/23 14:18 Urine Protein (Auto) 30 mg/dL 11/26/23 14:18 Glucose (UA)(Auto) 0 mg/dL 11/26/23 14:18 Urine Ketones (Auto) Negative 11/26/23 14:18 Urine Blood (Auto) 0 Awais/uL 11/26/23 14:18 Urine Nitrite (Auto) Negative 11/26/23 14:18 Urine Bilirubin (Auto) 1 mg/dL 11/26/23 14:18 Urine Urobilinogen (Auto) 0.2 mg/dL 11/26/23 14:18 Leukocyte Esterase (Auto) 15 Edgardo/uL 11/26/23 14:18 Assessment & Plan Assessment & Plan (1) Renal cyst: Code(s): N28.1 - Cyst of kidney, acquired (2) Lower urinary tract symptoms: Code(s): R39.9 - Unspecified symptoms and signs involving the genitourinary system (3) Diverticula, 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 PVR 0 mL. Patient reports be happy with current voiding parameters on Gemtesa 75 mg daily and would like to continue; 90 day supply provided Discussed possible near future in office cystoscopy for further assessment evaluation. Continue with scheduled/timed voiding to assist with decreasing episodes of urinary incontinence given decreased mobility with Parkinson's. Follow-up in 6 months with PVR; or sooner with any issues, concerns, and or questions. Orders: Orders AMB Urinalysis Automated Today Z13.9 - Encounter for screening, unspecified AMB Post Void Residual by ultrasound Today R39.9 - Unspecified symptoms and signs involving the genitourinary system Medications: Changed From vibegron (Gemtesa) 75 mg PO DAILY 30 days 30 tabs 1RF N32.81 - Overactive bladder To vibegron (Gemtesa) 75 mg PO DAILY 90 days 90 tabs 1RF N32.81 - Overactive bladder Patient Instructions: The patient had an opportunity to ask questions regarding the treatment plan. All questions were answered. Physical exam, labs, and imaging were discussed and reviewed in detail. As well as risks, benefits, and discussion of treatment choices. No major barriers to understanding were identified. The patient expressed understanding and agreement with the above treatment plan. The patient was made aware they should contact our office by phone for worsening of their current condition, the appearance of new symptoms, or with any questions or concerns. Compliance is encouraged with any medications and follow up testing that is ordered. It is a privilege to be allowed the opportunity to participate in? your urological care.? Again, if you have any questions or concerns If you have any questions or concerns please do not hesitate to contact me. The office is [phone]. This note is constructed using voice recognition software. While every effort has been made to ensure accuracy vacuum spindle sander errors may have been included. Yours sincerely, ALEENA Meng-BC Coding Level of Care Code Est Pt Level 3 (05646) Diagnoses Renal cyst N28.1 Lower urinary tract symptoms R39.9 Diverticula, bladder N32.3 CPT Codes Post Residual Void - PVR CPT Code: 73169-Cqzo Void Residual by ultrasound ([id number])
== END 2023-11-26 14:52 | disposition home or self-care (01) ==
PROVIDERS: PCP Pediatrics; Visit Provider Nurse Practitioner Family
DX: N28.1 Cyst of kidney, acquired (principal); R39.9 Unspecified symptoms and signs involving the genitourinary system; N32.3 Diverticulum of bladder; Z13.9 Encounter for screening, unspecified
CPT/HCPCS: 99213

== ENCOUNTER → 2023-11-26 13:59 | Outpatient (BNVA) | payer BC, SELFPAY | PROVIDERS: PCP Pediatrics; Visit Provider Nurse Practitioner Family | DX: N28.1 Cyst of kidney, acquired (principal); R39.9 Unspecified symptoms and signs involving the genitourinary system; N32.3 Diverticulum of bladder | CPT/HCPCS: 51798; 81003 ==

== ENCOUNTER 2024-05-29 14:48 | Outpatient (AMB) | payer BC, SELFPAY ==
--- NOTE | 2024-05-29 14:58 | MHC.OFFVIS ---
Intake Visit Reasons: 6m/PVR Intake Note: Patient presents for follow up visit for renal cyst and LUTS Urology Medications: Gemtesa, Finasteride Blood Thinner: Aspirin PVR: 67ml's Hand Molder Required: No Accompanied by: Unknown Allergies Sulfa (Sulfonamide Antibiotics) Allergy (Verified 05/29/24 21:06) Unknown Medication List - Last Reconciled 05/29/24 by Heather Avendaño DRYWALL SANDER- aspirin 81 mg PO DAILY atorvastatin 40 mg PO DAILY carbidopa-levodopa 25-100 mg tabs PO finasteride 5 mg PO DAILY gabapentin 300 mg PO TID nitroglycerin mg sublingual pramipexole mg PO propranolol 10 mg PO BID rasagiline 1 mg PO DAILY vibegron (Gemtesa) 75 mg PO DAILY 90 days HPI Comments Details: Gian is a very pleasant 83-year-old male patient of who was accompanied by his at today's office visit. He has a past medical history of Parkinson's disease, erectile dysfunction, and coronary artery disease status post angioplasty and followed by cardiology. He presents to the office today for follow-up of his lower urinary tract symptoms. In discussion with the patient today he reports since his last office visit here 6 months ago he has had no bothersome urinary issues or concerns. He reports feeling Gemtesa has been helpful for lower urinary tract symptoms he had been experiencing prior. He reports he has significantly lessened episodes of urinary urgency and has had no episodes of urinary incontinence in the last 6 months however has had 1 episode of fecal incontinence. He currently denies any bothersome urinary issues or concerns. In office urinalysis results reviewed with the patient today. PVR 67mls. Previous workup has included a retroperitoneal ultrasound noting bilateral kidneys with no calculi and or hydronephrosis noted. There are bilateral cysts which require no imaging follow-up per radiology report. The bladder is well distended. Pre void bladder volume is approximately 240 mL. Postvoid bladder volume is approximately 40 mL. Multiple small bladder diverticula are seen. Enlarged prostate of approximately 68 mL. He has previously trialed terazosin, finasteride, Myrbetriq, and VESIcare all in which have not been helpful in treating his lower urinary tract symptoms. Patient with a history of prostate [facility] at [facility]. PSA at time of biopsy was 4. In review of patient's chart it appears he had been on combination medical therapy with terazosin and finasteride for many years however per Cardiology and Neurology terazosin was discontinued. He ambulates with a walker so the time to reach the bathroom is delayed at times. He otherwise denies hematuria, dysuria, foul smelling urine, flank pain, fever, and or chills. Recent PSA results reviewed with the patient and his today. PSA 10/06 1.6. Discussed importance of timed/scheduled voiding to assist with decreasing episodes of incontinence given decreased mobility. Discussed at length Parkinson's in regards to lower urinary tract symptoms patient is experiencing as well as affects of Parkinson's medications on the bladder. [facility] Medical History Thyroid nodule Restless leg syndrome Low back pain Lipids abnormal Ischemic colitis Hip pain CAD (coronary artery disease) Anemia History of balanitis Erectile dysfunction Parkinson disease Urge incontinence Urinary urgency Review of Systems Eyes Reports no additional complaints ENT Reports no additional complaints Card Reports as per HPI Resp Reports no additional complaints GI Reports no additional complaints Reports as per HPI Musc Reports as per HPI Neuro Reports as per HPI Psych Reports no additional complaints Endo Reports no additional complaints Abdon/Lymph Reports no additional complaints Aller/Immun Reports no additional complaints Physical Exam Const General: cooperative, healthy appearing, comfortable, no acute distress, well developed, alert and awake Orientation/consciousness: patient oriented x3 Limitations: ambulation with walker HEENT Head: Yes normal to inspection, Yes normocephalic and Yes atraumatic Ears: hearing grossly normal bilaterally Eyes General: appearance normal, both eyes and all related structures Neck Neck: Yes normal visual inspection and Yes trachea midline Chest Chest palpation & inspection: normal inspection of the chest Resp Effort & Inspection: normal respiratory effort and able to speak in complete sentences Cardio Rate: regular rate GI Inspection: Yes normal to inspection General: Yes no CVA tenderness Back/Spine/Pelvis Back: no CVA tenderness Skin General skin exam: no rashes or lesions noted Neuro General: patient oriented x3 Extrem General: Yes normal to inspection Psych Appearance: grossly normal and well kempt Mental Status: mental status grossly normal Speech and movement: Normal speech and movement present and Clear speech present Affect: normal affect Attitude: cooperative Thought process: Normal thought process present Thought content: Normal thought content present Insight: Fair insight present (Psych) Judgement: Fair judgement present (Psych) Office Procedures Post Void Residual Post Residual Void Post Void Residual (PVR): 67 [id number] Void Residual by ultrasound Results AMB Urinalysis, Automated UA Leukoctes 0 Edgardo/uL Last Edit by Dylan Funez on 05/29/24 15:17 UA Nitrite Last Edit by Dylan Funez on 05/29/24 15:17 UA Urobilinogen 0.2 mg/dL Last Edit by TVplustianna Funez on 05/29/24 15:17 UA Protein 15 mg/dL Last Edit by [employer]kristian on 05/29/24 15:17 UA pH 8.0 Last Edit by [employer]kristian on 05/29/24 15:17 UA Blood 0 Awais/uL Last Edit by [email or web address] on 05/29/24 15:17 UA Specific [place] 1.015 Last Edit by [employer]kristian on 05/29/24 15:17 UA Ketone Last Edit by TVplustianna Funez on 05/29/24 15:17 UA Bilirubin 0 mg/dL Last Edit by [employer]kristian on 05/29/24 15:17 UA Glucose 0 mg/dL Last Edit by [employer]kristian on 05/29/24 15:17 Results Reviewed Results Reviewed: Laboratory Last Values Urine pH (Auto) 8.0 05/29/24 15:01 Specific [place] (Auto) 1.015 05/29/24 15:01 Urine Protein (Auto) 15 mg/dL 05/29/24 15:01 Glucose (UA)(Auto) 0 mg/dL 05/29/24 15:01 Urine Blood (Auto) 0 Awais/uL 05/29/24 15:01 Urine Bilirubin (Auto) 0 mg/dL 05/29/24 15:01 Urine Urobilinogen (Auto) 0.2 mg/dL 05/29/24 15:01 Leukocyte Esterase (Auto) 0 Edgardo/uL 05/29/24 15:01 Assessment & Plan Assessment & Plan (1) Renal cyst: Code(s): N28.1 - Cyst of kidney, acquired Category: Medical (2) Lower urinary tract symptoms: Code(s): R39.9 - Unspecified symptoms and signs involving the genitourinary system Category: Medical (3) Diverticula, bladder: Code(s): N32.3 - Diverticulum of bladder Category: Medical Plan In office urinalysis results reviewed with the patient today; as noted above. PVR 67mL. Patient reports be happy with current voiding parameters on Gemtesa 75 mg daily and would like to continue. Discussed possible near future in office cystoscopy for further assessment evaluation if symptoms arise. Continue with scheduled/timed voiding to assist with decreasing episodes of urinary incontinence given decreased mobility with Parkinson's. Will obtain PSA in 6 months. Patient currently denies any bothersome urinary issues or concerns. Follow-up in 6 months with PSA and PVR to be completed prior; or sooner with any issues, concerns, and or questions. Orders: Orders AMB Post Void Residual by ultrasound Today R39.9 - Unspecified symptoms and signs involving the genitourinary system Prostate Specific Antigen 6 Months N40.0 - Benign prostatic hyperplasia without lower urinary tract symptoms AMB Urinalysis Automated Today Z13.9 - Encounter for screening, unspecified Patient Instructions: The patient had an opportunity to ask questions regarding the treatment plan. All questions were answered. Physical exam, labs, and imaging were discussed and reviewed in detail. As well as risks, benefits, and discussion of treatment choices. No major barriers to understanding were identified. The patient expressed understanding and agreement with the above treatment plan. The patient was made aware they should contact our office by phone for worsening of their current condition, the appearance of new symptoms, or with any questions or concerns. Compliance is encouraged with any medications and follow up testing that is ordered. It is a privilege to be allowed the opportunity to participate in? your urological care.? Again, if you have any questions or concerns If you have any questions or concerns please do not hesitate to contact me. The office is [phone]. This note is constructed using voice recognition software. While every effort has been made to ensure accuracy reconditioner errors may have been included. Yours sincerely, FIDENCIO Meng Coding Level of Care Code Est Pt Level 3 (42504) Complex EM visit Add On G2211 Diagnoses Renal cyst N28.1 Lower urinary tract symptoms R39.9 Diverticula, bladder N32.3 CPT Codes Post Residual Void - PVR CPT Code: 02477-Vrid Void Residual by ultrasound ([id number])
== END 2024-05-29 15:45 | disposition home or self-care (01) ==
PROVIDERS: PCP Pediatrics; Visit Provider Nurse Practitioner Family
DX: N28.1 Cyst of kidney, acquired (principal); R39.9 Unspecified symptoms and signs involving the genitourinary system; N32.3 Diverticulum of bladder; Z13.9 Encounter for screening, unspecified
CPT/HCPCS: 99213

== ENCOUNTER → 2024-05-29 14:48 | Outpatient (BNVA) | payer BC, SELFPAY | PROVIDERS: PCP Pediatrics; Visit Provider Nurse Practitioner Family | DX: N28.1 Cyst of kidney, acquired (principal); R39.9 Unspecified symptoms and signs involving the genitourinary system; N32.3 Diverticulum of bladder; G20.A1 Parkinson's disease without dyskinesia, without mention of fluctuations | CPT/HCPCS: 51798; 81003 ==

== ENCOUNTER 2024-11-27 13:23 | Outpatient (AMB) | payer BC, SELFPAY ==
--- NOTE | 2024-11-27 13:42 | A.OFFVIS_ITS ---
Intake Visit Reasons: 6M psa(set) Intake Note: Patient presents for follow up visit for renal cyst and LUTS PSA: 1.82 Urology Medications: Gemtesa, Finasteride Blood Thinner: Aspirin PVR: 30ml's Jet Dyeing Machine Tender Required: No Accompanied by: Unknown Allergies Sulfa (Sulfonamide Antibiotics) Allergy (Verified 11/27/24 16:19) Unknown Medication List - Last Reconciled 11/27/24 by FIDENCIO Meng aspirin 81 mg PO DAILY atorvastatin 40 mg PO DAILY carbidopa-levodopa 25-100 mg tabs PO finasteride 5 mg PO DAILY 90 days gabapentin 300 mg PO TID nitroglycerin mg sublingual pramipexole mg PO propranolol 10 mg PO BID rasagiline 1 mg PO DAILY vibegron (Gemtesa) 75 mg PO DAILY 90 days HPI Comments Details: Gian is a very pleasant 83-year-old male patient of Dr. Hood who was accompanied by his at today's office visit. He has a past medical history of Parkinson's disease, erectile dysfunction, and coronary artery disease status post angioplasty and followed by cardiology. He presents to the office today for follow-up of his lower urinary tract symptoms. In discussion with the patient today he reports to be doing and feeling well. He denies having had any bothersome urinary issues or concerns since his last office visit here. He reports compliance with finasteride and Gemtesa as prescribed. He does discuss having had infrequent episodes of fecal incontinence in relates this to his decreased mobility. In office urinalysis results reviewed with the patient today. PVR 30ml's. Previous workup has included a retroperitoneal ultrasound 10/06 noting bilateral kidneys with no calculi and or hydronephrosis noted. There are bilateral cysts which require no imaging follow-up per radiology report. The bladder is well distended. Pre void bladder volume is approximately 240 mL. Postvoid bladder volume is approximately 40 mL. Multiple small bladder diverticula are seen. Enlarged prostate of approximately 68 mL. He has previously trialed terazosin, finasteride, Myrbetriq, and VESIcare all in which have not been helpful in treating his lower urinary tract symptoms. Patient with a history of prostate biopsy several years ago at [facility]. PSA at time of biopsy was 4. In review of patient's chart it ap pears he had been on combination medical therapy with terazosin and finasteride for many years however per Cardiology and Neurology terazosin was discontinued. He ambulates with a walker so the time to reach the bathroom is delayed at times. He otherwise denies hematuria, dysuria, foul smelling urine, flank pain, fever, and or chills. Recent PSA results reviewed with the patient and his today. PSA 10/06 1.6, 11/07 1.8 Discussed importance of timed/scheduled voiding to assist with decreasing episodes of incontinence given decreased mobility. Discussed Parkinson's in regards to lower urinary tract symptoms patient is experiencing as well as affects of Parkinson's medications on the bladder. He discusses increase in co- payment for Gemtesa however feels it is worth it as he has had significant improvement in lower urinary tract symptoms he otherwise offers no other issues or concerns at this time [facility] Medical History Thyroid nodule Restless leg syndrome Low back pain Lipids abnormal Ischemic colitis Hip pain CAD (coronary artery disease) Anemia History of balanitis Erectile dysfunction Parkinson disease Urge incontinence Urinary urgency Review of Systems Eyes Reports no additional complaints ENT Reports no additional complaints Card Reports as per HPI Resp Reports no additional complaints GI Reports no additional complaints Reports as per HPI Musc Reports as per HPI Neuro Reports as per HPI Psych Reports no additional complaints Endo Reports no additional complaints Abdon/Lymph Reports no additional complaints Aller/Immun Reports no additional complaints Physical Exam Const General: cooperative, healthy appearing, comfortable, no acute distress, well developed, alert and awake Orientation/consciousness: patient oriented x3 Limitations: ambulation with walker HEENT Head: Yes normal to inspection, Yes normocephalic and Yes atraumatic Ears: hearing grossly normal bilaterally Eyes General: appearance normal, both eyes and all related structures Neck Neck: Yes normal visual inspection and Yes trachea midline Chest Chest palpation & inspection: normal inspection of the chest Resp Effort & Inspection: normal respiratory effort and able to speak in complete sentences Cardio Rate: regular rate GI Inspection: Yes normal to inspection General: Yes no CVA tenderness Back/Spine/Pelvis Back: no CVA tenderness Skin General skin exam: no rashes or lesions noted Neuro General: patient oriented x3 Extrem General: Yes normal to inspection Psych Appearance: grossly normal and well kempt Mental Status: mental status grossly normal Speech and movement: Normal speech and movement present and Clear speech present Affect: normal affect Attitude: cooperative Thought process: Normal thought process present Thought content: Normal thought content present Insight: Fair insight present (Psych) Judgement: Fair judgement present (Psych) Office Procedures Post Void Residual Post Residual Void Post Void Residual (PVR): 30 [id number] Void Residual by ultrasound Results AMB Urinalysis, Automated UA Leukoctes 15 Edgardo/uL Last Edit by Head Held High on 11/27/24 13:58 UA Nitrite Negative Last Edit by Head Held High on 11/27/24 13:58 UA Urobilinogen 0.2 mg/dL Last Edit by Head Held High on 11/27/24 13:58 UA Protein 30 mg/dL Last Edit by Head Held High on 11/27/24 13:58 UA pH 6.0 Last Edit by Head Held High on 11/27/24 13:58 UA Blood 0 Awais/uL Last Edit by Head Held High on 11/27/24 13:58 UA Specific [place] 1.015 Last Edit by Head Held High on 11/27/24 13:58 UA Ketone Positive Last Edit by Head Held High on 11/27/24 13:58 UA Bilirubin 1 mg/dL Last Edit by Head Held High on 11/27/24 13:58 UA Glucose 0 mg/dL Last Edit by Head Held High on 11/27/24 13:58 Results Reviewed Results Reviewed: Laboratory Last Values Urine pH (Auto) 6.0 11/27/24 13:46 Specific [place] (Auto) 1.015 11/27/24 13:46 Urine Protein (Auto) 30 mg/dL 11/27/24 13:46 Glucose (UA)(Auto) 0 mg/dL 11/27/24 13:46 Urine Ketones (Auto) Positive 11/27/24 13:46 Urine Blood (Auto) 0 Awais/uL 11/27/24 13:46 Urine Nitrite (Auto) Negative 11/27/24 13:46 Urine Bilirubin (Auto) 1 mg/dL 11/27/24 13:46 Urine Urobilinogen (Auto) 0.2 mg/dL 11/27/24 13:46 Leukocyte Esterase (Auto) 15 Edgardo/uL 11/27/24 13:46 Assessment & Plan Assessment & Plan (1) Renal cyst: Code(s): N28.1 - Cyst of kidney, acquired Category: Medical (2) Lower urinary tract symptoms: Code(s): R39.9 - Unspecified symptoms and signs involving the genitourinary system Category: Medical (3) Diverticula, bladder: Code(s): N32.3 - Diverticulum of bladder Category: Medical Plan In office urinalysis results reviewed with the patient today; as noted above. PVR 30 mL. Patient reports to be happy with current voiding parameters on Gemtesa 75 mg daily and would like to continue. Discussed possible near future in office cystoscopy for further assessment evaluation if symptoms arise. Continue with scheduled/timed voiding to assist with decreasing episodes of urinary incontinence given decreased mobility with Parkinson's. Recent PSA results reviewed with the patient today; as noted above. Continue finasteride. Patient currently denies any bothersome urinary issues or concerns. Follow-up in 6 months with PVR to be completed prior; or sooner with any issues, concerns, and or questions. Orders: Orders AMB Urinalysis Automated Today Z13.9 - Encounter for screening, unspecified AMB Post Void Residual by ultrasound Today R39.9 - Unspecified symptoms and signs involving the genitourinary system Medications: Changed From finasteride 5 mg PO DAILY To finasteride 5 mg PO DAILY 90 days 90 tabs 4RF Refilled vibegron (Gemtesa) 75 mg PO DAILY 90 days 90 tabs 3RF N32.81 - Overactive bladder Patient Instructions: The patient had an opportunity to ask questions regarding the treatment plan. All questions were answered. Physical exam, labs, and imaging were discussed and reviewed in detail. As well as risks, benefits, and discussion of treatment choices. No major barriers to understanding were identified. The patient expressed understanding and agreement with the above treatment plan. The patient was made aware they should contact our office by phone for worsening of their current condition, the appearance of new symptoms, or with any questions or concerns. Compliance is encouraged with any medications and follow up testing that is ordered. It is a privilege to be allowed the opportunity to participate in? your urological care.? Again, if you have any questions or concerns If you have any questions or concerns please do not hesitate to contact me. The office is [phone]. This note is constructed using voice recognition software. While every effort has been made to ensure accuracy general warehouse worker errors may have been included. Yours sincerely, FIDENCIO Meng Coding Level of Care Code Est Pt Level 3 (97291) Complex EM visit Add On G2211 Diagnoses Renal cyst N28.1 Lower urinary tract symptoms R39.9 Diverticula, bladder N32.3 CPT Codes Post Residual Void - PVR CPT Code: 07847-[id number] Void Residual by ultrasound ([id number])
--- OUTSIDE RECORDS SUMMARY | 2024-11-27 15:34 | XMS_ITS | Encounter Summary ---
Author Organization [facility] Address [address] [place] [address] Care Team Providers Care Business Analytics Analyst Name Role Phone Barron Hood Primary Care Provider [phone] Reason for Visit * Reason Comments Medication Check Encounter Details Date Type Department Care Team ([facility] st Contact Info) Description 11/06/2024 Telephone [facility] Neurology [address] [address] Ugo Gerber MD 123 [facility] [address] [place] [address] Medication Check Social History Tobacco Use Types Packs/Day Years Used Date Smoking Tobacco: Never Smokeless Tobacco: Never Intimate Partner Violence Answer Date R ecorded Fear of Current or Ex-Partner Not on file Emotionally Abused Not on file 05/16/2023 Physically Abused Not on file 05/16/2023 Sexually Abused Not on file 05/16/2023 Feel Safe at Home Not on file 05/16/2023 Sex and Gender Information Value Date Recorded Sex Assigned at Male 10/07/2023 2:51 PM EST Legal Sex Male 1:19 PM EDT Gender Identity Male 10/07/2023 2:51 PM EST Sexual Orientation Straight 10/07/2023 2: 51 PM EST documented as of this encounter Miscellaneous Notes * Telephone Encounter - Janet Hatfield RN - 11/06/2024 10:34 AM EST Patient asked why only a 2 weeks supply of C/L was sent to the pharmacy Informed that on 10/30 a 30 day was sent Patient has not picked this up He will contact his pharmacy documented in this encounter Plan of Treatment Upcoming Encounters Date Type Department Care Team ([facility] st Contact Info) Description 12/12/2024 11:00 AM EDT Office Visit [facility] Neurology [address] [facility] [address] [place] [address] Ugo Gerber MD 123 [facility] [address] [place] [address] f/u mobility issues. documented as of this encounter Visit Diagnoses Not on filedocumented in this encounter Care Teams Business Analytics Analyst Relationship Specialty Start Date End Date Barron Hood [address] [facility] [address] [place] [address] PCP - General Internal Medicine 10/13/22 documented as of this encounter
--- OUTSIDE RECORDS SUMMARY | 2024-11-27 15:34 | XMS_ITS | Encounter Summary ---
Author Organization [facility] Address [address] [place] [address] Care Team Providers Care Melter Supervisor Open Hearth Furnace Name Role Phone Mirella Gerardo MD Primary Care Provider [phone] Barron Hood Primary Care Provider [phone] Reason for Visit * Reason Comments Parkinson's Disease Encounter Details Date Type Department Care Team ([facility] st Contact Info) Description 09/09/2022 Telephone [facility] Neurology [address] [facility] [address] [place] [phone] Ugo Gerber MD 123 [facility] [address] [place] [address] [id number] Parkinson's Disease Social History Tobacco Use Types Packs/Day Years Used Date Smoking Tobacco: Never Smokeless Tobacco: Never Sex and Gender Information Value Date Recorded Sex Assigned at Male 10/07/2023 2:51 PM EST Legal Sex Male 1:19 PM EDT Gender Identity Male 10/07/2023 2:51 PM EST Sexual Orientation Straight 10/07/2023 2: 51 PM EST documented as of this encounter Miscellaneous Notes * Telephone Encounter - Ann Marie - 09/16/2022 4:25 PM EST Spoke to pt - appt scheduled Future Appointments Date Time Provider Department Phone 10/13/22 4:30 PM Ugo Gerber MD [facility] Neurology [address] 11/13/22 10:15 AM Ugo Gerber MD [facility] Neurology [address] 11/13/22 11:00 AM Phyllis Leahy, PT [facility] Rehabilitation OT [address]/ Parkinson's [address] * Telephone Encounter - Ugo Gerber MD - 09/15/2022 3:07 PM EST Can offer 11:30 on 09/29 or 4:30 on 10/13 to expedite f/u * Telephone Encounter - Rubia Jackson RN - 09/09/2022 11:54 AM EST Can wait for Dr. Gerber to return. Chief concern: late summer noticed difficulty getting out of chair and more unsteady. The symptoms are worsening over last several months. No falls to report. He does use his cane/walker. When without the cane/walker can only take tiny steps, hard time getting started . With using walker /cane take normal steps . With using walker/cane does not freeze. Plan: continue using cane/walker. Plan: asking if wants covering to place referral to PT. He will hold off for now on this. Plan: cut back on his driving with legs being shaky . Plan: set alarms to remember to take C/L / Prami four times a day. NV 11/13/2022. Saying if opening he would be happier coming in sooner. Current medication: Gabapentin (NEURONTIN) 300 MG capsule TAKE 3 CAPSULES BY MOUTH AT BEDTIME Takes this pill faithfully. Propranolol HCl (INDERAL) 10 MG tablet Take one tablet (10 mg total) by mouth 2 (two) times a day Takes this faithfully. Rasagiline Mesylate (AZILECT) 1 MG tablet TAKE 1 TABLET DAILY Takes this every day faithfully. Carbidopa-Levodopa (SINEMET) 25-100 MG per tablet Take one and a half tablets by mouth 4 (four) times a day He admits to forgetting to take the supper time pill. Pramipexole Dihydrochloride (MIRAPEX) 0.25 MG tablet 1 tab in morning, 1 at lunch, 1 at supper, and2 at bedtime daily He sometimes forgets the supper time pill of the Prami. * Telephone Encounter - NickLucy arnold - 09/09/2022 11:19 AM EST Gian called he is scheduled [facility] Gerber. He's been having increasing leg weakness and balance problems. He would like to talk with Dr. Gerber on his return to the office to discuss maybe coming in for a sooner appointment or discuss a plan. documented in this encounter Plan of Treatment Upcoming Encounters Date Type Department Care Team ([facility] st Contact Info) Description 12/12/2024 11:00 AM EDT Office Visit [facility] Neurology [address] [address] Ugo Gerber MD 123 [facility] [address] [place] [address] f/u mobility issues. documented as of this encounter Visit Diagnoses Not on filedocumented in this encounter Care Teams Melter Supervisor Open Hearth Furnace Relationship Specialty Start Date End Date Mirella Gerardo MD [facility] Primary Care [address] [place] [address] [place] [address] PCP - General Family Medicine 07/04/21 10/12/22 Barron Hood [address] [facility] [address] [place] [address] PCP - General Internal Medicine 10/13/22 documented as of this encounter
--- OUTSIDE RECORDS SUMMARY | 2024-11-27 15:34 | XMS_ITS | Encounter Summary ---
Author Organization [facility] Address [address] [place] [address] Care Team Providers Care Production Sound Mixer Name Role Phone Barron Hood Primary Care Provider [phone] Reason for Visit * Reason Onset Date Comments Med Change Request Refill Request 10/28/2024 Encounter Details Date Type Department Care Team ([facility] st Contact Info) Description 10/28/2024 Refill [facility] Neurology [address] [facility] [address] [place] [phone] Ugo Gerber MD 123 [facility] [address] [place] [phone] Med Change Request; Refill Request Social History Tobacco Use Types Packs/Day Years [...] encounter Miscellaneous Notes * Telephone Encounter - Sarai Arrington RN - 10/30/2024 2:04 PM EST Any special requests or concerns? none Faxed/E-prescribed medication renewal request(s) for Gian Hare 83 y.o. male received from pharmacy. The most recent pharmacy on file was used. Last CPE with this specialty: Not Found Last OV with this specialty: 04/04/2024 Next OV: Future Appointments Date Time Provider Department Phone 12/12/24 11:00 AM Ugo Gerber MD [facility] Neurology [address] Pertinent lab results: No labs suggested for any medication orders signed or pended in this encounter. Refresh if any orders changed. Allergies: Sulfa antibiotics BP Readings from Last 1 Encounters: 04/04/24 107/66 Current Outpatient Medications on File Prior to Visit Medication Sig Dispense Refill Gabapentin (NEURONTIN) 300 MG capsule Take three capsules (900 mg total) by mouth every night. 270 capsule 3 Carbidopa-Levodopa (SINEMET) 25-100 MG per tablet TAKE 2 TABLETS BY MOUTH 4 TIMES A DAY 112 tablet 0 Pramipexole Dihydrochloride (MIRAPEX) 0.25 MG Tablet 2 tab in morning, 2 at lunch, 2 at supper, and2 at bedtime daily. 450 tablet 3 Propranolol HCl (INDERAL) 10 MG tablet take 1 tablet twice a day 180 tablet 3 Carbidopa-Levodopa (SINEMET) 25-100 MG per tablet TAKE 2 TABLETS 4 TIMES DAILY 720 tablet 3 Gemtesa 75 MG Tab Take 75 mg by mouth 1 (one) time each day Pt takes one tablet in the morning . Rasagiline Mesylate (AZILECT) 1 MG tablet take 1 tablet daily 90 tablet 3 Magnesium 250 MG Tab Take by mouth Atorvastatin Calcium 40 MG Tab TAKE 1 TABLET BY MOUTH EVERY DAY 3 Aspirin EC 81 MG Tablet Delayed Response 1 tablet Nitroglycerin 0.4 MG SL Tab Dose: 1 TAB; Form: Not available; Route: SL; Frequency: Not available; Directions: Not available; Details: Not available; Date: 01/11/2014 Finasteride 5 MG Tab Take 5 mg by mouth daily. documented in this encounter Plan of Treatment Upcoming Encounters Date Type Department Care Team (Late st Contact Info) Description 12/12/2024 11:00 AM EDT Office Visit [facility] Neurology [address] [address] Ugo Gerber MD [address] [address] f/u mobility issues. documented as of this encounter Visit Diagnoses Not on filedocumented in this encounter Care Teams Production Sound Mixer Relationship Specialty Start Date End Date Barron Hood [address] [facility] [address] [place] [address] PCP - General Internal Medicine 10/13/22 documented as of this encounter
--- OUTSIDE RECORDS SUMMARY | 2024-11-27 15:34 | XMS_ITS | Data Portability ---
Author Organization [facility], [facility] Address [address] [place] [address] Care Team Providers Care Equity Research Associate Name Role Phone SIMI CARDOZA Reproducer JS GONZALEZ Primary Care Provider SUMEET OLVERA Primary Care Provider Assessment Encounter Date Assessment Date Assessment LastModified by Organization Details LastModified Time 04/26/2015 04/26/2015 74yo man with a history of hyperlipidemia, CAD, BPH, Parkinsonism, kindly referred by Dr. Virgen for thyroid mass. 04/15/15 US thyroid gland revealed a left isoechoic 1.2cm nodule with increased peripheral vascularity and several millimeter cystic nodules at the lower left pole. Fortunately, the patient notes no trouble swallowing, family history of thyroid cancer, exposure to radiation, or rapid change in neck. I appreciate Dr. Parra's evaluation, who suggests that histiologic evaluation be considered. I reviewed the images, and the nodule is small, has regular borders, and mild peripheral vascularity, for which reason I would recommend observation with a repeat US in a year instead. A tsh would be appropriate, and he will return as needed in the future. 05/11/16 US thyroid gland revealed minimal to no change in left mid lobe complex 1.2cm thyroid nodule with mild peripheral hypervascularity. I reviewed the US images, and echogenic may be consistent with posterior acoustic enhancement inferior to cystic areas. Cystic areas in this nodule are new, however the size and other characteristics are stable in comparison to 04/15/15. [email or web address] Not available 06/05/2016 18:43:20 06/08/2016 06/08/2016 75yo man with a history of hyperlipidemia, CAD, BPH, Parkinsonism, kindly referred by Dr. Virgen for thyroid mass, which was noted incidentally on PE in 2014. 05/11/16 US thyroid gland revealed minimal to no change in left mid lobe complex 1.2cm thyroid nodule with mild peripheral hypervascularity. I reviewed the US images, and echogenic may be consistent with posterior acoustic enhancement inferior to cystic areas. Cystic areas in this nodule are new, however the size and other characteristics are stable in comparison to 04/15/15. 04/28/16 tsh 1.4 We discussed the overall stable size of the thyroid nodule and low risk of this causing any significant symptoms or risk of . We also reviewed imaging via the [facility] portal. This nodule appears small and unlikely to cause significant morbidity or mortality, though the only way to completely exclude cancer is by biopsy. We agreed that continuing monitoring is very reasonable. We could follow only by physical exam or consider a repeat ultrasound thyroid in 2 years if this would affect your decision to biopsy or have surgery. [email or web address] Not available 06/08/2016 11:33:07 04/20/2022 04/20/2022 Ingrown toenail lateral border right hallux jerskine Not available 04/20/2022 10:37:19 07/10/2022 07/10/2022 Ingrown toenail lateral border right hallux jerskine Not available 07/10/2022 11:34:39 10/09/2022 10/09/2022 Peripheral neuropathy, thick toenails jerskine Not available 10/09/2022 12:03:56 Plan of Treatment Reminders Order Date Submit Date Provider Last Modified By Organization Details Last Modified Time Details Appointments None recorded . Lab TSH, serum or plasma 015 04/26/20 15 [facility], [address] [facility], [place], [address], 5 12:43:45 Referral None recorded . Procedures None recorded . Surgeries None recorded . Imaging None recorded . Medication Orders None recorded . Patient TargetsNo targets recorded. Patient Instructions Encounter Date Encounter Id Patient Instructions Last Modified By Organization Details Last Modified Time 04/26/2015 [id number] -repeat ultrasou nd thyroid in a year, at [facility] per your preference -if no worrisome changes in imaging, repeat as needed per symptoms further testing -tsh blood test today -see ENT for voice evaluation if raspiness persists [email or web address] Not available 04/26/2015 16:03:59 06/08/2016 [id number] We discussed the overall stable size of the thyroid nodule and low risk of this causing any significant symptoms or risk of . We agreed that continuing monitoring is very reasonable. We could follow only by physical exam or consider a repeat ultrasound thyroid in 2 years if this would affect your decision to biopsy or have surgery. mspitzer Not available 06/08/2016 11:30:50 04/20/2022 [id number] Patient to consider permanent partial matrixectomy lateral border right hallux if symptoms persist/recur. jerskine Not available 04/20/2022 10:37:38 07/10/2022 [id number] Patient to consider permanent partial matrixectomy lateral border right hallux if symptoms persist/recur. jerskine Not available 07/10/2022 11:34:39 10/09/2022 [id number] Patient to retur n in 9 weeks for foot care to reduce risk of complications associated with peripheral neuropathy. jerskine Not available 10/09/2022 12:04:26 Reason for Referral None Reported. Results Created Date Observation Date Name Description Value Unit Range Abnormal Flag Note LastModifiedBy Organization Detail LastModifiedTime 04/26/20 15 04/29/2015 TSH, serum or plasm a TSH 1.47 uIU/m L 0.50-6 .00 [facility] recom mend goal TSH value s betwe en 0.4-4 .0 mIU/m L. Not Available [address], [address], 04/29/2015 12:43:45 06/16/20 16 05/11/2016 US, neck, soft tissu e No observ ation record ed. jmillar Not Available 2015 14:22:53 Result Notes None recorded. Problems Name Problem SNOMED Code Status Onset Date Resolution Date Notes Provider Name and Address Organization Details Recorded Time Non-toxic uninodula r goiter 922262839 Active Simi Cardoza MD [address] [place] [address], [phone] , [facility] 5 16:05:35 Mixed hyperlipi demia 224573561 Active 2004 Not Available [facility] 3 03:12:41 Precordia l pain 59634611 Completed 200508/02/2013 Not Available [facility] 3 02:02:30 Tendiniti s 76721593 Active 2008 Not Available [facility] 3 03:12:41 Benign essential hypertens ion 4248214 Active 2006 Not Available [facility] 3 03:12:41 Skin sensation disturban ce 18036209 Completed 08/02/2013 Not Available [facility] 3 02:03:10 Impacted cerumen 33266410 Completed 200608/02/2013 Not Available [facility] 3 02:02:11 Hip pain 87534592 Completed 200708/02/2013 Not Available [facility] 3 02:01:32 Urinary tract obstructi on 8210507 Active 2007 Not Available [facility] 3 03:12:41 Congenita l pes cavus 688231342 Active 2008 Not Available [facility] 3 03:12:41 Disorder of prostate 95881612 Active 2004 Not Available [facility] 3 03:12:41 Chronic ischemic heart disease 619057206 Active 2006 Not Available [facility] 3 03:12:41 Hyperplas ia of prostate 552752432 Active 2007 Not Available [facility] 3 03:12:41 Insect bite to arm - nonvenomo us 470891195 Completed 200708/02/2013 Not Available [facility] 3 02:04:28 Coronary arteriosc lerosis in [place] artery 85276497411 07 Active 2004 Not Available [facility] 3 03:12:41 Hyperlipi demia 67266345 Active 2006 Not Available [facility] 3 03:12:41 Coronary atheroscl erosis 250140941 Active 2005 Not Available [facility] 3 03:12:41 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 Procedures Surgical History Date Name Laterality Status Provider Name and Address Organization Details Recorded Time 6 Hip Replacement completed Simi Cardoza MD [address] [place] [address], [phone], [facility] 06/08/2016 11:18:00 0 Other (specify) completed Simi Cardoza MD [address] [place] [address], [phone], [facility] 04/26/2015 16:03:34 Other (specify) completed Imani Quintana RN [facility] 06/08/2016 11:09:14 Imaging Results Imaging Date Name Status LastModified by Organiz ation Details LastModified Time 05/11/2016 US, neck, soft tissue completed [email or web address] Information not available 06/24/2016 14:22:53 Procedure Notes None recorded. Medical Equipment None Reported. Allergies Allergen ID Allergen Name Allergen Category Reaction Reaction Severity Criticality Documentation Date Start Date Code Code System Note Provider Name and Address Organization Details Recorded Time 1303 Substance with sulfonami de structure and antibacte rial mechanism of action (substanc e) medicatio n Not available Not available Not available 10/22/2008 35961 8003 SNOMED Not Available [facility] 1 06:05:20 Medications Name Sig Start Date Stop Date Status Note LastModified by Organization Details LastModified Time amoxicill in 500 mg capsule TAKE 4 CAPSULES BY MOUTH ONE HOUR PRIOR TO DENTAL APPOINTM ENT. active Not Available Not Available No t Available terazosin 5 mg capsule TAKE 1 CAPSULE BY MOUTH AT BEDTIME active Not Available Not Available No t Available atorvasta tin 40 mg tablet TAKE 1 TABLET BY MOUTH EVERY DAY active Not Available Not Available No t Available gabapenti n 600 mg tablet Take 1 tablet every day by oral route. 04/20 completed Per [facility] Discharg e Summary Not Available Not Available Not Available nitroglyc john 0.3 mg sublingua l tablet 2007 active Take 1.00 tabs as directed as needed Not Available Not Available Not Available fluocinon leisa 0.05 % topical gel DRY AFFECTED AREA AND APPLY UP TO 4 TIMES A DAY active Not Available Not Available No t Available isosorbid e mononitra te ER 30 mg tablet,ex tended release 24 hr Take 1 tablet every day by oral route in the morning for 30 days. 11/22 completed NOT TAKING Not Available Not Available Not Available lovastati n 40 mg tablet Take 1 tablet every day by oral route. 04/20 completed Per [facility] Discharg e Summary Not Available Not Available Not Available alclometa sone 0.05 % topical cream APPLY TO AFFECTED AREA ON PENIS TWICE DAILY FOR THREE WEEKS THEN NEEDED. active Not Available Not Available No t Available propranol ol 10 mg tablet TAKE ONE TABLET (10 MG TOTAL) BY MOUTH 2 (TWO) TIMES A DAY active Not Available Not Available No t Available terazosin 2 mg capsule TAKE 1 CAPSULE BY MOUTH EVERY DAY 04/20 completed Not Available Not Available Not Available econazole nitrate 1 % topical cream APPLY TOPICALL Y TO RASH 2 TIMES A DAY FOR ONE WEEK 04/20 completed Not Available Not Available Not Available pramipexo le 0.25 mg tablet TAKE 1 TABLET BY MOUTH IN THE MORNING, 1 TAB AT LUNCH, 1 TAB AT SUPPER, AND 2 TABS AT BEDTIME DAILY active Not Available Not Available No t Available gabapenti n 300 mg capsule TAKE 3 CAPSULES BY MOUTH AT BEDTIME active Not Available Not Available No t Available diclofena c sodium 50 mg tablet,de layed release TAKE 1 TABLET BY MOUTH ONCE A DAY FOR 2 WEEKS active Not Available Not Available No t Available azelastin e 137 mcg (0.1 %) nasal spray INHALE 2 SPRAYS EACH NOSTRIL TWICE DAILY NEEDED active Not Available Not Available No t Available propranol ol 20 mg tablet TAKE 1 TABLET BY MOUTH 3 TIMES A DAY active Not Available Not Available No t Available carbidopa 25 mg-levodo pa 100 mg tablet TAKE ONE AND A HALF TABLETS BY MOUTH 4 (FOUR) TIMES A DAY active Not Available Not Available No t Available finasteri de 5 mg tablet TAKE 1 TABLET BY MOUTH EVERY DAY active Not Available Not Available No t Available Adult Low Dose Aspirin 81 mg tablet,de layed release 2007 active Take 1.00 tabs every day Not Available Not Available Not Available chlorhexi dine gluconate 0.12 % mouthwash SWISH AND SPIT 15ML EVERY MORNING AND EVENING FOR 2WEEKS.D ONOT SWALLOW active Not Available Not Available No t Available Zostavax (PF) 19,400 unit/0.65 mL subcutane ous suspensio n 06/08 completed Take 1.00 ml daily Not Available Not Available Not Available rasagilin e 1 mg tablet TAKE 1 TABLET BY MOUTH EVERY DAY active Not Available Not Available No t Available Myrbetriq 25 mg tablet,ex tended release TAKE 1 TABLET BY MOUTH DAILY FOR 30 DAYS. DO NOT CRUSH OR CHEW active Not Available Not Available No t Available Multi Vitamin Take one tablet p.o. daily 04/20 completed Per [facility] Discharg e Summary Not Available Not Available Not Available Sodium Fluoride 5000 Dry Mouth 1.1 % dental paste USE AT NIGHT.FL OSS FIRST THEN BRUSH FOR 2 MINUTES. SPIT EXCESS.D O NOT RINSE, EAT OR DRINK FOR 30 MIN active Not Available Not Available No t Available Flowflex COVID-19 Antigen Home Test kit TAKE DIRECTED active Not Available Not Available No t Available Vitals Date Recorded Heart rate Systolic blood pressure Diastolic blood pressure Provider Name and Address Organization Details Last Updated DateTime 04/20/2022 72 /min 110 mm[Hg] 64 mm[Hg] Jennifer [facility] 04/20/2022 10:14:16 Date Recorded Heart rate Systolic blood pressure Diastolic blood pressure Provider Name and Address Organization Details Last Updated DateTime 10/09/2022 72 /min 120 mm[Hg] 64 mm[Hg] Jennifer [facility] 10/09/2022 11:44:48 Date Recorded Heart rate Body weight Body mass index (BMI) Body height Systolic blood pressure Diastolic blood pressure Provider Name and Address Organization Details Last Updated DateTime 5 75 /min 02789.0 09042 g 26.2 kg/m2 180.34 cm 110 mm[Hg] 70 mm[Hg] Brittany Cesar [facility] 5 15:37:42 Date Recorded Body weight Body height Body mass index (BMI) Heart rate Systolic blood pressure Diastolic blood pressure Provider Name and Address Organization Details Last Updated DateTime 6 99430.7 4 g 180.34 cm 26.8 kg/m2 68 /min 116 mm[Hg] 78 mm[Hg] Imani Quintana RN [facility] 6 11:05:17 Social History Question Answer Notes LastModified by Organizat ion Details LastModified Time Tobacco Smoking Status Never Smoker Brittany Tali hoffman [facility] 04/26/2015 15:34:00 What Is Your Level Of Alcohol Consumption? Occasional 1-2 Glasses Wine Qd Information not available 06/08/2016 Which Illicit Or Recreational Drugs Have You Used? Denies Information not available 06/08/2016 What Was The Date Of Your Most Recent Tobacco Screening? 04/20/2022 [email or web address] Information not available 04/20/2022 How Much Tobacco Do You Smoke? No [email or web address] Information not available 07/30/2011 Do You Or Have You Ever Used Any Other Forms Of Tobacco Or Nicotine? No [email or web address] Information not available 04/20/2022 Sex: Unknown Functional Status None recorded. Mental Status None recorded. Family History Relationship Description Onset Age of this Age Resolved Age Notes LastModified by Organization Details LastModified Time Father Disease Thyroi d, low [email or web address] Not available 04/26/2015 16:03:34 Father Myocardial infarction [email or web address] Not available 04/26 16:03:34 Father Diabetes mellitus [email or web address] Not available 2014 16:03:34 Mother Disease 101 Thyroi d. [email or web address] Not available 04/26/2015 16:03:34 Notes:Cardiovascular: Family history is remarkable for myocardial infarction. (father). Endocrine: Family history is remarkable for diabetes mellitus. (father). Medical History Condition Response Parkinson's Disease Y Immunizations Vaccine Type Date Status Note Provider Nam e and Address Organization Details Recorded Time Td(adult) unspecified formulation 5 completed Not Available [facility] 07/29/2011 05:21:07 influenza, unspecified formulation 8 completed Not Available [facility] 07/29/2011 05:21:55 COVID-19, mRNA, LNP-S, PF, 30 mcg/0.3 mL dose 1 completed Jennifer hoffman, [facility] 04/20/2022 14:52:31 COVID-19, mRNA, LNP-S, PF, 30 mcg/0.3 mL dose 1 completed Jennifer hoffman, [facility] 04/20/2022 14:52:40 COVID-19, mRNA, LNP-S, PF, 30 mcg/0.3 mL dose 1 completed Jennifer hoffman, [facility] 04/20/2022 14:52:50 Past Encounters Encounter ID Performer Location Encounter Start Date Encounter Closed Date Diagnosis/Indication Diagnosis SNOMED-CT Code Diagnosis ICD10 Code Diagnosis Note [id number] [facility] [place] [address] [place] [id number] 03/02/2005 09:28:51 03/04/2005 08:25:[id number] [place] [id number] 03/03/2005 07:21:14 03/03/2005 07:26:[id number] [place] [address] 09/03/2005 07:16:30 09/03/2005 07:19:[id number] [place] [id number] 03/04/2006 07:03:48 03/04/2006 07:03:52 [id number] LAB [address] [place] [address] 03/17/2006 14:40:56 03/17/2006 14:41:07 [id number] [facility] [place] [address] [place] [id number] 03/09/2006 09:42:51 03/10/2006 07:37:[id number] [place] [id number] 08/24/2006 07:05:43 08/24/2006 07:05:46 [id number] [facility] [place] [address] [place] [id number] 08/30/2006 09:45:21 09/01/2006 08:46:[id number] [place] [address] 04/11/2007 07:03:57 04/11/2007 07:04:12 [id number] [facility] [place] [address] [place] [address] 04/19/2007 09:28:15 04/19/2007 16:35:05 [id number] [facility] [place] [address] [place] [address] 06/09/2007 08:56:53 10/03/2008 02:02:29 [id number] [facility] [place] [facility] [place] [address] [place] [id number] 07/21/2007 07:06:41 07/21/2007 07:06:47 [id number] [facility] [place] [address] [place] [address] 07/28/2007 08:47:26 08/09/2007 09:29:02 [id number] [facility] [address] [place] [address] 07/28/2007 10:09:38 07/28/2007 10:09:48 [id number] LAB - [address] [place] [address] 07/28/2007 14:42:37 07/28/2007 14:42:48 [id number] [facility] [address] [place] [address] 10/27/2007 07:07:35 10/27/2007 07:07:39 [id number] [facility] [place] [address] [place] [id number] 11/03/2007 09:47:57 10/03/2008 02:02:29 [id number] [facility] [place] [address] [place] [address] 04/18/2008 08:40:26 10/03/2008 02:02:29 [id number] [facility] [place] [facility] [place] [address] [place] [address] 05/18/2008 07:27:25 05/18/2008 07:27:30 [id number] [facility] [place] [address] [place] [address] 06/08/2008 09:13:33 10/03/2008 02:02:29 [id number] [facility] [place] [address] [place] [address] 09/03/2008 10:56:45 10/03/2008 02:02:29 [id number] [place], [facility] [place] [address] [place] [address] [place] [address] 10/22/2008 14:40:32 10/23/2008 08:25:51 [id number] Podiatry, [address] [place] [address] 12/21/2008 09:49:38 12/21/2008 17:06:25 [id number] Simi Cardoza MD Endocrino logy, [facility] [address] [place] [address] 04/26/2015 14:54:15 04/26/2015 16:02:43 Non-toxic uninodular goiter 791700678 -repeat ultrasound thyroid in a year, at [facility] per your preference -if no worrisome changes in imaging, repeat as needed per symptoms further testing -tsh blood test today -see ENT for voice evaluation if raspiness persists [id number] Simi Cardoza MD Endocrino logy, [facility] [address] [place] [address] 06/08/2016 10:57:37 06/08/2016 11:31:40 Non-toxic uninodular goiter 284016677 E04.1 We discussed the overall stable size of the thyroid nodule and low risk of this causing any significan t symptoms or risk of . We agreed that continuing monitoring is very reasonable . We could follow only by physical exam or consider a repeat ultrasound thyroid in 2 years if this would affect your decision to biopsy or have surgery. [id number] Js Gonzalez DPM Podiatry, [address] [address] 04/20/2022 09:54:51 04/20/2022 15:33:19 Ingrowing toenail 853602477 L60.0 [id number] Js Gonzalez DPM Podiatry, [address] [address] 07/10/2022 11:18:01 07/14/2022 12:11:43 Ingrowing toenail 207678505 L60.0 [id number] Js Gonzalez DPM Podiatry, [address] [address] 10/09/2022 11:11:58 10/09/2022 12:02:02 Idiopathic peripheral neuropathy 49506930 G60.3 Disorder of nail 0982054 8 L60.9 Health Concerns Section Related Observation LastModified by Organization Detai ls LastModified Time None Recorded Concern Status LastModified by Organization Details LastModified Time None Recorded Advance Directives Directive None Recorded Payers Encounter Date Sequence Insurance Name Policy Number Policy Bernardo Covered Member ID Bernardo Member ID Guarantor Name 04/26/2015 1 [employer] (MEDICARE REPLACEMENT PPO) [id number] Gian Hare [id number] Gian Hare 06/08/2016 1 [employer] (MEDICARE REPLACEMENT PPO) [id number] Gian Hare [id number] Gian Hare 04/20/2022 1 [employer] (MEDICARE REPLACEMENT PPO) [id number] Gian Hare [id number] Gian Hare 07/10/2022 1 [employer] (MEDICARE REPLACEMENT PPO) [id number] Gian Hare [id number] Gian Hare 10/09/2022 1 [facility] (MEDICARE REPLACEMENT PPO) [id number] Gian Hare [id number] Gian Hare Notes Date Note Type Note Provider Name and Address Organization Details Recorded Time 04/26/2015 text/html HPI 74yo man with a history of hyperlipidemia, CAD, BPH, Parkinsonism, kindly referred by Dr. Virgen for thyroid mass. He had a neck lump noted on PE a week ago, then an US. He had no neck problems. Lately he has had a little more rasp in voice for 1mo with once in a while runny nose comes and goes intermittent; rasp is steady he has not noted any neck lumps/bumps; he can't detect any lump Fortunately, the patient notes no trouble swallowing, family history of thyroid cancer, exposure to radiation, or rapid change in neck. ? Simi Cardoza MD [address] [place] [address], [phone], [facility] 06/05/2016 18:43:25 06/08/2016 text/html 75yo man with a history of hyperlipidemia, CAD, BPH, Parkinsonism, kindly referred by Dr. Virgen for thyroid mass, which was noted incidentally on PE in 2014. 04/28/16 tsh 1.4 no symptoms; Dr. Virgen had noted a thyroid nodule, this is why a US thyroid gland was repeated no hoarseness, trouble swallowing, lump in neck, radiation exposure, family thyroid cancer he has had x rays in the past but no radiation therapy the nodule was noted incidentally on PE Simi Cardoza MD [address] [place] [address], [phone], [facility] 06/08/2016 11:34:53 04/20/2022 text/html Patient presents to the office complaining of pain with mild swelling and red discoloration from ingrown toenail of his right big toe. Patient states he has been experiencing symptoms for a long time which he has not been able to manage on his own. Patient has not noticed drainage. Js Gonzalez DPM [address] [place] [address], [phone], [facility] 04/20/2022 10:37:53 07/10/2022 text/html Patient presents to the office complaining of return of pain and mild red discoloration from ingrown toenail of his right big toe. Patient states symptoms have been noticed over the past couple of weeks. Patient without complaints of swelling or drainage. Js Gonzalez DPM [address] [place] [address], [phone], [facility] 07/10/2022 11:36:46 10/09/2022 text/html Patient with peripheral neuropathy presents to the office for evaluation and at risk foot care. Patient complains of thick toenails he cannot care for himself. Patient has no complaints of open wound or drainage. Patient seen by Olga Lidia Kuhn MD on 08/03/2022. Js Gonzalez DPM [address] [place] [address], [id number], [facility] 10/09/2022 12:04:48
--- OUTSIDE RECORDS SUMMARY | 2024-11-27 15:34 | XMS_ITS ---
Author Organization [facility] Care Team Providers Care Roller Picker Name Role Phone THA NELSON Unavailable Unavailable Care Team Name Role Address Phone Organization Dates THA NELSON PCP [address] [facility] [address], [place], [address], [place] (Office): : [facility] 01/04/2016 - 01/16/2016 Mental Status Section Date Assessment Total Score Description 01/16/2016 BIMS 15 cognitively int act PHQ-9 02 minimal depress ion 01/11/2016 BIMS 15 cognitively int act PHQ-9 05 mild depression Problems Problem # Description Date of onset Resolved Date Code CodeSystem Concern Status 1 AFTERCARE FOLLOWING JOINT REPLACEMENT SURGERY 01/04/[address] active 2 ATHEROSCLEROTIC HEART DISEASE OF [place] CORONARY ARTERY WITHOUT ANGINA PECTORIS 01/04/[id number] active 3 BENIGN PROSTATIC HYPERPLASIA WITHOUT LOWER URINARY TRACT SYMPTOMS 01/04/[address] active 4 HYPERLIPIDEMIA, UNSPECIFIED 01/04/[address] active 5 MUSCLE WEAKNESS (GENERALIZED) 01/04/[address] active 6 OTHER ABNORMALITIES OF GAIT AND MOBILITY 01/04/[address] active 7 OTHER SPECIFIED DISORDERS OF MUSCLE 01/04/[address] active 8 PARKINSON'S DISEASE 01/04/[address] active 9 PRESENCE OF LEFT ARTIFICIAL HIP JOINT 01/04/[address] active 10 RESTLESS LEGS SYNDROME 01/04/[address] active Reason for Referral No Reasons for Referral Entered Social History Social History Observation Description Start Date End Date Code Code System Current Smoking Status Tobacco smoking consumption unknown [id number] SNOMED CT Sex Assigned At Male 1940 [address]22-9 [facility]
--- OUTSIDE RECORDS SUMMARY | 2024-11-27 15:34 | XMS_ITS | Continuity of Care Document ---
Author Organization [facility] Address [address] [place] [address] Care Team Providers Care Compliance Engineer Products Name Role Phone Barron Hood Primary Care Provider Encounters Date Type Department Care Team Description 11/06/[address] [facility] [address] [address] Ugo Gerber MD Medication Check 10/28/[address] [facility] [address] [address] Ugo Gerber MD Med Change Request; Refill Request 09/21/[address] [facility] [address] [address] Ugo eGrber MD Refill Request 09/01/[address] [facility] [address] [facility] [address] [place] [address] Ugo Gerber MD E-prescribing Refill Request 06/19/[address] [facility] [address] [facility] [address] [place] [address] Ugo Gerber MD E-prescribing Refill Request 06/19/[address] [facility] [address] [facility] [address] [place] [address] Ugo Gerber MD Refill Request 06/17/[address] [facility] [address] [facility] [address] [place] [address] Ugo Gerber MD E-prescribing Refill Request 05/24/[address] [facility] [address] [facility] [address] [place] [address] Ugo Gerber MD E-prescribing Refill Request 04/21/[address] [facility] [address] [facility] [address] [place] [address] Ugo Gerber MD E-prescribing Refill Request 04/04/2024 4:45 PM EDT Office Visit [facility] [address] [address] Ugo Gerber MD 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) 03/24/[address] [facility] [address] [facility] [address] [place] [address] Ugo Gerber MD E-prescribing Refill Request 03/13/[address] [facility] [address] [address] Ugo Gerber MD Appointment 03/09/[address] [facility] [address] [address] Ugo Gerber MD E-prescribing Refill Request 12/13/[address] [facility] [address] [facility] [address] [place] [address] Ugo Gerber MD E-prescribing Refill Request 12/06/[address] [facility] [address] [facility] [address] [place] [address] Ugo Gerber MD Med Change Request 11/15/[address] [facility] [address] [facility] [address] [place] [address] Ugo Gerber MD Refill Request (Sinemet ) 10/20/[address] [facility] [address] [facility] [address] [place] [address] Ugo Gerber MD Patient Questions 10/08/2023 2:15 PM EST Office Visit [facility] [address] [facility] [address] [place] [address] Ugo Gerber MD 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) 09/03/[address] [facility] [address] [address] Ugo Gerber MD E-prescribing Refill Request 07/12/[address] [facility] [address] [address] Ugo Gerber MD Refill Request (Mirapex) 04/10/[address] [facility] [address] [address] Ugo Gerber MD Refill Request 04/03/[address] [facility] [address] [address] Ugo Gerber MD E-prescribing Refill Request 04/02/2023 2:15 PM EDT Office Visit [facility] [address] [facility] [address] [place] [address] Ugo Gerber MD Parkinson disease (HCC) (Primary Dx) 03/26/[address] [facility] [address] [facility] [address] [place] [address] Ugo Gerber MD E-prescribing Refill Request 03/22/[address] [facility] [address] [address] Ugo Gerber MD Refill Request (Propranolol ) 03/08/[address] [facility] [address] [facility] [address] [place] [address] Ugo Gerber MD E-prescribing Refill Request 03/01/[address] [facility] [address] [facility] [address] [place] [address] Ugo Gerber MD Refill Request (Sinemet) 10/13/2022 4:30 PM EST Office Visit [facility] [address] [facility] [address] [place] [address] Ugo Gerber MD Parkinson disease (HCC) (Primary Dx); Neurogenic orthostatic hypotension (HCC) 09/21/[address] [facility] [address] [address] Ugo Gerber MD Refill Request (Gabapentin) 09/09/[address] [facility] [address] [address] Ugo Gerber MD Parkinson's Disease 06/29/[address] [facility] [address] [address] Ugo Gerber MD E-prescribing Refill Request 05/01/[address] [address] Naomie Arnold, PT Physical Therapy (PT Referral ) 05/01/2022 12:00 PM EDT Minor Procedure/Test [facility] [address]/ Parkinson's [address] [place] [address] Naomie Arnold, PT Parkinson disease (HCC) (Primary Dx) 05/01/2022 11:15 AM EDT Office Visit [facility] [address] [address] Ugo Gerber MD Parkinson disease (HCC) (Primary Dx) 03/20/[address] [facility] [address] [facility] [address] [place] [address] Ugo Gerber MD Refill Request 01/13/[address] [facility] [address]/ Parkinson's [address] [place] [address] Canole Naomie, PT 01/09/2022 2:30 PM EDT Office Visit [facility] [address]/ Parkinson's [address] [place] [address] Canole Naomie, PT Parkinson disease (HCC) (Primary Dx) 01/09/2022 1:45 PM EDT Office Visit [facility] [address] [facility] [address] [place] [address] Ugo Gerber MD Parkinson disease (HCC) (Primary Dx) 11/18/[address] [facility] [address] [address] Ugo Gerber MD E-prescribing Refill Request 10/01/[address] [facility] [address] [address] Ugo Gerber MD E-prescribing Refill Request 07/15/[address] [facility] [address]/ Parkinson's [address] [place] [address] Krystal Mendoza, PT 07/04/2021 2:00 PM EDT Office Visit [facility] [address]/ Parkinson's [address] [place] [address] Krystal Mendoza, PT Parkinson disease (HCC) (Primary Dx) 07/04/2021 1:15 PM EDT Office Visit [facility] [address] [address] Ugo Gerber MD Parkinson disease (HCC) (Primary Dx) 02/19/[address] [facility] [address] [facility] [address] [place] [address] Ugo Gerber MD E-prescribing Refill Request 12/27/2020 Travel 12/27/2020 2:15 PM EDT Office Visit [facility] [address] [facility] [address] [place] [address] Ugo Gerber MD Parkinson disease ([facility]) (Primary Dx); Rhinorrhea 12/02/[address] [facility] [address] [facility] [address] [place] [address] Jacque Sampson MD E-prescribing Refill Request 11/14/[address] [facility] [address] [facility] [address] [place] [address] Ugo Gerber MD E-prescribing Refill Request 09/16/[address] [facility] [address] [facility] [address] [place] [address] Ugo Gerber MD Refill Request 03/29/2020 Travel 03/29/2020 11:30 AM EDT Office Visit [facility] [address] [facility] [address] [place] [address] Ugo Gerber MD Parkinson disease ([facility]) 03/21/[address] [facility] [address] [facility] [address] [place] [address] Ugo Gerber MD E-prescribing Refill Request 03/21/[address] [facility] [address] [facility] [address] [place] [address] Ugo Gerber MD 03/13/[address] [facility] [address] [facility] [address] [place] [address] Ugo Gerber MD E-prescribing Refill Request 01/17/[address] [facility] [address]/ Parkinson's [address] [place] [address] Krystal Mendoza, PT 10/26/[address] [facility] [address] [facility] [address] [place] [address] Ugo Gerber MD Medication Check 10/13/[address] [facility] [address]/ Parkinson's [address] [place] [address] Krystal Mendoza, PT 09/29/2019 2:30 PM EST Office Visit [facility] [address]/ Parkinson's [address] [place] [address] Krystal Mendoza, PT Parkinson disease (HCC) (Primary Dx) 09/29/2019 1:30 PM EST Office Visit [facility] [address] [address] Ugo Gerber MD Parkinson disease (HCC) (Primary Dx) 09/21/[address] [facility] [address] [facility] [address] [place] [address] Jacque Sampson MD E-prescribing Refill Request 03/17/2019 1:30 PM EDT Office Visit [facility] [address]/ Parkinson's [address] [place] [address] Krystal Mendoza, PT Parkinson disease (HCC) (Primary Dx) 03/17/2019 12:30 PM EDT Office Visit [facility] [address] [facility] [address] [place] [address] Ugo Gerber MD Parkinson disease (HCC) (Primary Dx); Meralgia paresthetica of right side 02/08/[address] [facility] [address] [address] Ugo Gerber MD E-prescribing Refill Request 12/23/[address] [facility] [address] [address] Ugo Gerber MD Follow Up 12/21/[address] [facility] [address] [facility] [address] [place] [address] Ugo Gerber MD Refill Request 10/03/[address] [facility] [address] [facility] [address] [place] [address] Ugo Gerber MD Physical Therapy 09/23/[address] [facility] [address] [facility] [address] [place] [address] Ugo Gerber MD Parkinson's Disease 09/16/2018 11:30 AM EST Office Visit [facility] [address]/ Parkinson's [address] [place] [address] Phyllis Leahy PT Parkinson disease (HCC) (Primary Dx) 09/16/2018 10:30 AM EST Office Visit [facility] [address] [facility] [address] [place] [address] Ugo Gerber MD Parkinson disease (HCC) (Primary Dx) 07/11/[address] [facility] [address] [facility] [address] [place] [address] Ugo Gerber MD Medication Check 05/25/[address] [facility] [address] [facility] [address] [place] [address] Ugo Gerber MD Refill Request 04/25/[address] [facility] [address] [facility] [address] [place] [address] Ugo Gerber MD Refill Request 03/09/[address] [facility] [address] [facility] [address] [place] [address] Ugo Gerber MD F/u From OV 03/07/2018 11:15 AM EDT Consult (Initial) [facility] [address] [facility] [address] [place] [address] Ugo Gerber MD Parkinson disease (HCC) (Primary Dx) 02/20/[address] [facility] [address] [facility] [address] [place] [address] Ugo Gerber MD Information 11/29/2017 Consult (Initial) NEUROLOGY UNSPECIFIED Reginaldo Underwood MD 05/31/2017 Consult (Initial) NEUROLOGY UNSPECIFIED Reginaldo Underwood MD Allergies Active Allergy Reactions Criticality Noted Date Comments Sulfa Antibiotics Other 10/08/2023 Medications Aspirin EC 81 MG Tablet Delayed Response 1 tablet Active Nitroglycerin 0.4 MG SL Tab Dose: 1 TAB; Form: Not available; Route: SL; Frequency: Not available; Directions: Not available; Details: Not available; Date: 01/11/2014 01/12/20 14 Active Finasteride 5 MG Tab Take 5 mg by mouth daily. Active Atorvastatin Calcium 40 MG Tab TAKE 1 TABLET BY MOUTH EVERY DAY 3 03/12/20 19 Active Magnesium 250 MG Tab Take by mouth Active Rasagiline Mesylate (AZILECT) 1 MG tablet take 1 tablet daily 90 tablet 3 03/24/20 24 Active Gemtesa 75 MG Tab Take 75 mg by mouth 1 (one) time each day Pt takes one tablet in the morning . Active Carbidopa-Levodopa (SINEMET) 25-100 MG per tablet TAKE 2 TABLETS 4 TIMES DAILY 720 tablet 3 04/21/20 24 Active Propranolol HCl (INDERAL) 10 MG tablet take 1 tablet twice a day 180 tablet 3 05/24/20 24 Active Pramipexole Dihydrochloride (MIRAPEX) 0.25 MG Tablet 2 tab in morning, 2 at lunch, 2 at supper, and 2 at bedtime daily. 450 tablet 3 06/19/20 24 Active Gabapentin (NEURONTIN) 300 MG capsule Take three capsules (900 mg total) by mouth every night. 270 capsule 3 09/21/19 25 026 Active Carbidopa-Levodopa (SINEMET) 25-100 MG per tablet TAKE 2 TABLETS BY MOUTH 4 TIMES A DAY 240 tablet 10/30/19 25 Active Carbidopa-Levodopa (SINEMET) 25-100 MG per tablet TAKE 2 TABLETS BY MOUTH 4 TIMES A DAY 112 tablet 09/01/20 24 025 Discontinued Active Problems Problem Noted Date Diagnosed Date Neurogenic orthostatic hypotension 10/13/2022 Parkinson disease ([facility]) -PT -PD clinic 9 Meralgia paresthetica of right side 03/17/2019 Parkinson disease 03/07/2018 Immunizations Name Administration Dates Next Due COVID-19, mRNA (Moderna Pre Fall 2022) Monovalent, 100 mcg/0.5 ml or 50 mcg/0.25 ml dose 12/13/2021 COVID-19, mRNA (Moderna Pre Fall 2022) bivalent, 25 mcg/0.25 ml (6 months - 11 years) or 50 mcg/0.5 ml (12+ years) 06/05/2022 COVID-19, mRNA (Moderna Spik evax) Seasonal, 50 mcg/0.5 mL (12+) 06/13/2023 COVID-19, mRNA (Pfizer Pre F 2022) Monovalent, 30 mcg/0.3 ml 06/17/2021,11/06/2020,10/16/2020 Influenza (SEASONAL) - 06/08/2008 Influenza, Quad, Inactivated , Adjuvanted, Preser Fr 06/07/2023,06/05/2022 Influenza,high dose seasonal,trivalent,PF (Fluzone HD) 06/09/2019,06/28/2018,05/30/2018,2016,07/22/2016,07/05/2013 Influenza,high-dose, Quadrivalent 06/30/2021, Influenza,seasonal,trivalent ,preserva tive (FLUZONE MDV) 06/20/2015,07/05/2014,05/14/2011,2009 PCV-13 05/18/2017,06/20/2015 PPV23 (Pneumovax) 04/17/2020 RSV Recombinant Adjuvant, 0. 5 ML (Arexvy) 05/20/2023 Tdap 04/15/2015,05/26/2012 Zoster (Shingrix) 07/02/2021,04/17/2020 Zoster (Zostavax) 09/03/2008 Social History Smoking Status as of 11/27/2024 Tobacco Use Types Packs/Day Years Used Date Smoking Tobacco: Never Assessed Intimate Partner Violence Answer Date R ecorded [...] Orientation Straight 10/07/2023 2: 51 PM EST Last Filed Vital Signs Vital Sign Reading Time Taken Comments Blood Pressure 107/66 04/04/2024 4:57 PM EDT Pulse 64 04/04/2024 4:57 PM EDT Temperature - - Respiratory Rate - - Oxygen Saturation - - Inhaled Oxygen Concentration - - Weight 90.7 kg (200 lb) 05/01/2022 11:52 AM EDT Height - - Body Mass Index - - Plan of Treatment Upcoming Encounters Date Type Department Care Team (Late st Contact Info) Description 12/12/2024 11:00 AM EDT Office Visit [facility] [address] [address] Ugo Gerber MD [address] [address] f/u mobility issues. Visit Diagnoses Diagnosis Start Date Parkinson disease ([facility]) Paralysis agitans 03/07/2018 Parkinson disease ([facility]) Paralysis agitans 09/16/2018 Parkinson disease ([facility]) Paralysis agitans 09/16/2018 Parkinson disease ([facility]) Paralysis agitans 10/03/2018 Parkinson disease ([facility]) Paralysis agitans 03/17/2019 Parkinson disease ([facility]) Paralysis agitans 03/17/2019 Meralgia paresthetica of right side Meralgia paresthetica 03/17/2019 Parkinson disease ([facility]) Paralysis agitans 09/29/2019 Parkinson disease ([facility]) Paralysis agitans 09/29/2019 Parkinson disease ([facility]) -PT -PD clinic Paralysis agitans 10/13/2019 Parkinson disease ([facility]) Paralysis agitans 01/17/2020 Parkinson disease (HCC) Paralysis agitans 03/29/2020 Parkinson disease (HCC) Paralysis agitans 12/27/2020 Rhinorrhea Other diseases of nasal cavity and sinuses 12/27/2020 Parkinson disease (HCC) Paralysis agitans 07/04/2021 Parkinson disease (HCC) Paralysis agitans 07/04/2021 Parkinson disease (HCC) Paralysis agitans 07/15/2021 Parkinson disease (HCC) Paralysis agitans 01/09/2022 Parkinson disease (HCC) Paralysis agitans 01/09/2022 Parkinson disease (HCC) Paralysis agitans 01/13/2022 Parkinson disease (HCC) Paralysis agitans 05/01/2022 Right elbow pain Pain in joint, upper arm 05/01/2022 Parkinson disease (HCC) Paralysis agitans 05/01/2022 Parkinson disease (HCC) Paralysis agitans 05/01/2022 Parkinson disease (HCC) Paralysis agitans 10/13/2022 Neurogenic orthostatic hypotension (HCC) 10/13/2022 Parkinson disease (HCC) Paralysis agitans 04/02/2023 Parkinson's disease with dyskinesia and fluctuating manifestations (HCC) 10/08/2023 Parkinson's disease with dyskinesia and fluctuating manifestations (HCC) 04/04/2024 Care Teams Compliance Engineer Products Relationship Specialty Start Date End Date Barron Hood [address] [address] PCP - General Internal Medicine 10/13/22
--- OUTSIDE RECORDS SUMMARY | 2024-11-27 15:34 | XMS_ITS | Encounter Summary ---
Author Organization [facility] Address [address] [place] [address] Care Team Providers Care Enterprise Systems Engineer Name Role Phone Alex Patel MD Primary Care Provider [phone] Mirella Gerardo MD Primary Care Provider [phone] Barron Hood Primary Care Provider [phone] Reason for Visit * Reason Comments E-prescribing Refill Request Encounter Details Date Type Department Care Team (Late st Contact Info) Description 11/14/2020 Refill [facility] Neurology [address] [facility] [address] [place] [address] Ugo Gerber MD [address] [id number] E-prescribing Refill Request Social History Tobacco Use Types [...] encounter Miscellaneous Notes * Telephone Encounter - Cynthia Bruno - 11/14/2020 8:52 AM EST Any special requests or concerns? none Faxed/E-prescribed medication renewal request(s) for Gian Hare 79 y.o. male received from pharmacy. Verified and Confirmed pharmacy for patient. Last CPE with this specialty: Not Found Last OV with this specialty: 03/29/2020 Next OV: Future Appointments Date Time Provider Department Phone 12/27/20 2:15 PM Ugo Gerber MD [facility] Neurology [address] 12/27/20 3:00 PM Krystal Mendoza PT [facility] Rehabilitation [phone] Pertinent lab results: No labs suggested for any medication orders signed or pended in this encounter. Refresh if any orders changed. Allergies: Patient has no allergy information on record. BP Readings from Last 1 Encounters: 09/29/19 (!) 94/57 Patient Active Problem List Diagnosis Date Noted ??? Parkinson disease ([facility]) -PT -PD clinic 03/17/2019 ??? Meralgia paresthetica of right side 03/17/2019 ??? Parkinson disease ([facility]) 03/07/2018 Current Outpatient Medications on File Prior to Visit Medication Sig Dispense Refill ??? Pramipexole Dihydrochloride (MIRAPEX) 0.25 MG tablet Take one tablet (0.25 mg total) by mouth 4(four) times a day 360 tablet 3 ??? Rasagiline Mesylate (AZILECT) 1 MG tablet Take one daily 90 tablet 3 ??? Carbidopa-Levodopa (SINEMET) 25-100 MG per tablet Take one tablet by mouth 4 (four) times a vdf111 tablet 3 ??? Gabapentin (NEURONTIN) 300 MG capsule TAKE 3 CAPSULES BY MOUTH AT BEDTIME. 270 capsule 4 ??? Atorvastatin Calcium 40 MG Tab TAKE 1 TABLET BY MOUTH EVERY DAY 3 ??? Terazosin HCl 2 MG Cap One at night ??? Propranolol HCl 20 MG Tab 1 TABLET 2 TIMES DAILY ??? Aspirin EC 81 MG Tablet Delayed Response 1 tablet ??? Nitroglycerin 0.4 MG SL Tab Dose: 1 TAB; Form: Not available; Route: SL; Frequency: Not available; Directions: Not available; Details: Not available; Date: 01/11/2014 ??? Finasteride 5 MG Tab Take 5 mg by mouth daily. documented in this encounter Plan of Treatment Upcoming Encounters Date Type Department Care Team (Late st Contact Info) Description 12/12/2024 11:00 AM EDT Office Visit [facility] Neurology [address] [facility] [address] [place] [address] Ugo Gerber MD 123 [facility] [address] [place] [address] f/u mobility issues. documented as of this encounter Visit Diagnoses Not on filedocumented in this encounter Care Teams Enterprise Systems Engineer Relationship Specialty Start Date End Date Alex Patel MD [address] [place] [address] [place] [address] PCP - General Family Medicine 01/21/18 07/03/21 [facility]lla [facility] [address] [place] [address] [place] [address] PCP - General Family Medicine 07/04/21 10/12/22 Barron Hood [address] [facility] [address] [place] [address] PCP - General Internal Medicine 10/13/22 documented as of this encounter
--- OUTSIDE RECORDS SUMMARY | 2024-11-27 15:34 | XMS_ITS | Encounter Summary ---
Author Organization [facility] Address [address] [place] [address] Care Team Providers Care Yarn Dry Room Worker Name Role Phone Alex Patel MD Primary Care Provider [phone] Mirella Gerardo MD Primary Care Provider [phone] Barron Hood Primary Care Provider [phone] Reason for Visit * Reason Comments E-prescribing Refill Request Encounter Details Date Type Department Care Team (Late st Contact Info) Description 03/21/2020 Refill [facility] Neurology [address] [facility] [address] [place] [address] Ugo Gerber MD [address] [id number] E-prescribing Refill Request Social History Tobacco Use [...] encounter Miscellaneous Notes * Telephone Encounter - Vu, Lisa - 03/21/2020 12:18 PM EDT Special Concerns: last filled 03/17/19 Faxed medication renewal request(s) for Gian Hare 79 y.o. male received from pharmacy. Entered this pharmacy as preferred pharmacy for patient. Last CPE with this specialty: Not Found Last OV with this specialty: 09/29/2019 Next OV: Future Appointments Date Time Provider Department Phone 03/29/20 11:30 AM Ugo Gerber MD [facility] Neurology [address] Pertinent lab results: No labs suggested for any medication orders signed or pended in this encounter. Refresh if any orders changed. Allergies: Patient has no allergy information on record. BP Readings from Last 1 Encounters: 09/29/19 (!) 94/57 Patient Active Problem List Diagnosis Date Noted ??? Parkinson disease ([facility]) -PT -PD clinic 03/17/2019 ??? Meralgia paresthetica of right side 03/17/2019 ??? Parkinson disease ([facility]) 03/07/2018 Current Outpatient Medications on File Prior to Visit Medication Sig Dispense Refill ??? Pramipexole Dihydrochloride (MIRAPEX) 0.25 MG tablet TAKE 1 TABLET BY MOUTH THREE TIMES A DAY 270 tablet 3 ??? Carbidopa-Levodopa (SINEMET) 25-100 MG per tablet Take one tablet by mouth 4 (four) times a qes512 tablet 3 ??? Gabapentin (NEURONTIN) 300 MG capsule TAKE 3 CAPSULES BY MOUTH AT BEDTIME. 270 capsule 4 ??? Atorvastatin Calcium 40 MG Tab TAKE 1 TABLET BY MOUTH EVERY DAY 3 ??? Terazosin HCl 2 MG Cap One at night ??? Rasagiline Mesylate 1 MG Tab Take one daily 90 Tab 3 ??? Propranolol HCl 20 MG Tab 1 [...] Description 12/12/2024 11:00 AM EDT Office Visit [facility] Neurology [address] [facility] [address] [place] [address] Ugo Gerber MD [address] [facility] [address] [facility] [address] [place] [address] f/u mobility issues. documented as of this encounter Visit Diagnoses Not on filedocumented in this encounter Care Teams Yarn Dry Room Worker Relationship Specialty Start Date End Date Alex Patel MD [address] [facility] [address] PCP - General Family Medicine 01/21/18 07/03/21 [facility] [address] [place] [address] [address] [place] [address] PCP - General Family Medicine 07/04/21 10/12/22 Barron Hood [address] [facility] [address] [place] [address] PCP - General Internal Medicine 10/13/22 documented as of this encounter
== END 2024-11-27 14:29 | disposition home or self-care (01) ==
LOC: HO.HUSH 13:23
PROVIDERS: PCP Pediatrics; Visit Provider Nurse Practitioner Family
DX: N28.1 Cyst of kidney, acquired (principal); R39.9 Unspecified symptoms and signs involving the genitourinary system; N32.3 Diverticulum of bladder; Z13.9 Encounter for screening, unspecified
CPT/HCPCS: 99213

== ENCOUNTER → 2024-11-27 13:23 | Outpatient (BNVA) | payer BC, SELFPAY | PROVIDERS: PCP Pediatrics; Visit Provider Nurse Practitioner Family | DX: N28.1 Cyst of kidney, acquired (principal); N32.3 Diverticulum of bladder; N32.81 Overactive bladder | CPT/HCPCS: 51798; 81003 ==

== ENCOUNTER 2025-05-28 13:22 | Outpatient (AMB) | payer BC, SELFPAY ==
--- NOTE | 2025-05-28 13:39 | MHC.OFFVIS ---
Intake Visit Reasons: 6m/ PVR Intake Note: patient presents today for: 6mo/PVR urology medications: finasteride, vibegron blood thinners: aspirin today's PVR: 72 mls Bobbin Sorter Required: No Accompanied by: Spouse Allergies Sulfa (Sulfonamide Antibiotics) Allergy (Verified 05/28/25 17:15) Unknown Medication List - Last Reconciled 05/28/25 by Heather Avendaño [employer]LL[employer] SALES CONSULTANT- aspirin 81 mg PO DAILY atorvastatin 40 mg PO DAILY carbidopa-levodopa 25-100 mg tabs PO finasteride 5 mg PO DAILY 90 days gabapentin 300 mg PO TID nitroglycerin mg sublingual pramipexole mg PO propranolol 10 mg PO BID rasagiline 1 mg PO DAILY vibegron (Gemtesa) 75 mg PO DAILY 90 days HPI Comments Details: Gian is a very pleasant 84-year-old male patient of Dr. Hood who was accompanied by his at today's office visit. He has a past medical history of Parkinson's disease, erectile dysfunction, and coronary artery disease status post angioplasty and followed by cardiology. He presents to the office today for follow-up of his lower urinary tract symptoms. In discussion with the patient today he reports to be doing and feeling well. He denies having had any bothersome urinary issues or concerns since his last office visit here. He reports compliance with finasteride and Gemtesa as prescribed. In office urinalysis results reviewed with the patient today. PVR 72 ml's. Previous workup has included a retroperitoneal ultrasound 10/06 noting bilateral kidneys with no calculi and or hydronephrosis noted. There are bilateral cysts which require no imaging follow-up per radiology report. The bladder is well distended. Pre void bladder volume is approximately 240 mL. Postvoid bladder volume is approximately 40 mL. Multiple small bladder diverticula are seen. Enlarged prostate of approximately 68 mL. He has previously trialed terazosin, finasteride, Myrbetriq, and VESIcare all in which have not been helpful in treating his lower urinary tract symptoms. Patient with a history of prostate biopsy several years ago at [facility]. PSA at time of biopsy was 4. In review of patient's chart it appears he had been on combination medical therapy with terazosin and finasteride for many years however per Cardiology and Neurology terazosin was discontinued. He ambulates with a walker so the time to reach the bathroom is delayed at times. He otherwise denies hematuria, dysuria, foul smelling urine, flank pain, fever, and or chills. Recent PSA results reviewed with the patient and his today. PSA 10/06 1.6, 11/07 1.8 Discussed importance of timed/scheduled voiding to assist with decreasing episodes of incontinence given decreased mobility. Discussed Parkinson's in regards to lower urinary tract symptoms patient is experiencing as well as affects of Parkinson's medications on the bladder. He discusses how helpful Hema has been and feels his quality of life is significantly increased. He otherwise offers no other issues or concerns at this time [facility] Medical History Thyroid nodule Restless leg syndrome Low back pain Lipids abnormal Ischemic colitis Hip pain CAD (coronary artery disease) Anemia History of balanitis Erectile dysfunction Parkinson disease Urge incontinence Urinary urgency Review of Systems Eyes Reports no additional complaints ENT Reports no additional complaints Card Reports as per HPI Resp Reports no additional complaints GI Reports no additional complaints Reports as per HPI Musc Reports as per HPI Neuro Reports as per HPI Psych Reports no additional complaints Endo Reports no additional complaints Abdon/Lymph Reports no additional complaints Aller/Immun Reports no additional complaints Physical Exam Const General: cooperative, healthy appearing, comfortable, no acute distress, well developed, alert and awake Orientation/consciousness: patient oriented x3 Limitations: ambulation with walker HEENT Head: Yes normal to inspection, Yes normocephalic and Yes atraumatic Ears: hearing grossly normal bilaterally Eyes General: appearance normal, both eyes and all related structures Neck Neck: Yes normal visual inspection and Yes trachea midline Chest Chest palpation & inspection: normal inspection of the chest Resp Effort & Inspection: normal respiratory effort and able to speak in complete sentences Cardio Rate: regular rate GI Inspection: Yes normal to inspection General: Yes no CVA tenderness Back/Spine/Pelvis Back: no CVA tenderness Skin General skin exam: no rashes or lesions noted Neuro General: patient oriented x3 Extrem General: Yes normal to inspection Psych Appearance: grossly normal and well kempt Mental Status: mental status grossly normal Speech and movement: Normal speech and movement present and Clear speech present Affect: normal affect Attitude: cooperative Thought process: Normal thought process present Thought content: Normal thought content present Insight: Fair insight present (Psych) Judgement: Fair judgement present (Psych) Office Procedures Post Void Residual Post Residual Void Post Void Residual (PVR): 72 [id number] Void Residual by ultrasound Results AMB Urinalysis, Automated UA Leukoctes 15 Edgardo/uL Last Edit by FADIA Garcia on 05/28/25 15:35 UA Nitrite Negative Last Edit by Kathia Costello [facility] on 05/28/25 15:35 UA Urobilinogen 0.2 mg/dL Last Edit by [facility] Cost[facility] on 05/28/25 15:35 UA Protein 15 mg/dL Last Edit by Kathia Costello [facility] on 05/28/25 15:35 UA pH 6.5 Last Edit by Kathia Costello [facility] on 05/28/25 15:35 UA Blood 200 Awais/uL Last Edit by Kathia Costello [facility] on 05/28/25 15:35 UA Specific [place] 1.015 Last Edit by FADIA Garcia on 05/28/25 15:35 UA Ketone Negative Last Edit by Kathia Costello [facility] on 05/28/25 15:35 UA Bilirubin 0 mg/dL Last Edit by Kathia Costello [facility] on 05/28/25 15:35 UA Glucose 0 mg/dL Last Edit by Kathia Costello [facility] on 05/28/25 15:35 Results Reviewed Results Reviewed: Laboratory Last Values Urine pH (Auto) 6.5 05/28/25 15:32 Specific [place] (Auto) 1.015 05/28/25 15:32 Urine Protein (Auto) 15 mg/dL 05/28/25 15:32 Glucose (UA)(Auto) 0 mg/dL 05/28/25 15:32 Urine Ketones (Auto) Negative 05/28/25 15:32 Urine Blood (Auto) 200 Awais/uL 05/28/25 15:32 Urine Nitrite (Auto) Negative 05/28/25 15:32 Urine Bilirubin (Auto) 0 mg/dL 05/28/25 15:32 Urine Urobilinogen (Auto) 0.2 mg/dL 05/28/25 15:32 Leukocyte Esterase (Auto) 15 Edgardo/uL 05/28/25 15:32 Assessment & Plan Assessment & Plan (1) Microscopic hematuria: Code(s): R31.29 - Other microscopic hematuria Category: Medical (2) Lower urinary tract symptoms: Code(s): R39.9 - Unspecified symptoms and signs involving the genitourinary system Category: Medical (3) Renal cyst: Code(s): N28.1 - Cyst of kidney, acquired Category: Medical (4) Diverticula, 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 Continue Gemtesa as discussed and prescribed. PVR 72 mL. He currently denies any bothersome urinary issues or concerns. He reports be happy with current voiding parameters. Will continue with surveillance monitoring. Follow-up in 6 months with PSA; or sooner with any issues, concerns, and or questions. Orders: Orders AMB Post Void Residual by ultrasound Today R31.29 - Other microscopic hematuria AMB Urinalysis Automated Today Z13.9 - Encounter for screening, unspecified Urine Cytology Today R31.29 - Other microscopic hematuria Prostate Specific Antigen 6 Months N28.1 - Cyst of kidney, acquired, N32.3 - Diverticulum of bladder, R31.29 - Other microscopic hematuria, R39.9 - Unspecified symptoms and signs involving the genitourinary system Patient Instructions: The patient had an opportunity to ask questions regarding the treatment plan. All questions were answered. Physical exam, labs, and imaging were discussed and reviewed in detail. As well as risks, benefits, and discussion of treatment choices. No major barriers to understanding were identified. The patient expressed understanding and agreement with the above treatment plan. The patient was made aware they should contact our office by phone for worsening of their current condition, the appearance of new symptoms, or with any questions or concerns. Compliance is encouraged with any medications and follow up testing that is ordered. It is a privilege to be allowed the opportunity to participate in? your urological care.? Again, if you have any questions or concerns If you have any questions or concerns please do not hesitate to contact me. The office is [phone]. This note is constructed using voice recognition software. While every effort has been made to ensure accuracy regional liaison errors may have been included. Yours sincerely, FIDENCIO Meng Coding Level of Care Code Est Pt Level 3 (68655) Complex EM visit Add On G2211 Diagnoses Microscopic hematuria R31.29 Lower urinary tract symptoms R39.9 Renal cyst N28.1 Diverticula, bladder N32.3 CPT Codes Post Residual Void - PVR CPT Code: 85728-Rknh Void Residual by ultrasound ([id number])
--- OUTSIDE RECORDS SUMMARY | 2025-05-28 18:32 | XMS_ITS | Clinical Summary ---
Author Organization [facility] Address [address] [place] [address] Phone Care Team Providers Care Boxer Operator Name Role Phone Alex Patel MD Unavailable [phone] Richard Hood DO Primary Care Provider Allergies Active Allergy Reactions Criticality Noted Date Comments Solifenacin Other (See Comments) 08/17/2024 Severe confusion Sulfa (Sulfonamide Antibiotics) Other (See Comments) 01/11/2014 unknown Medications nitroglycerin (NITROSTAT) 0.4 MG SL tablet Dose: 1 TAB; Form: Not available; Route: SL; Frequency: Not available; Directions: Not available; Details: Not available; Date: 01/11/2014 4 Active finasteride (PROSCAR) 5 mg tablet Take 5 mg by mouth daily. Active rasagiline (AZILECT) 1 mg Take 0.5 mg by mouth daily. Active pramipexole (MIRAPEX) 0.25 MG tablet Take 0.5 mg by mouth 4 (four) times a day. Take 1 tablet 4 times dayly Active aspirin 81 MG EC tablet 1 tablet Active atorvastatin (LIPITOR) 40 MG tablet 1 tablet Active magnesium oxide 400 mg magnesium Tab Take 250 mg by mouth daily. Active fluocinonide 0.05 % gel 1 Active gabapentin (NEURONTIN) 300 MG capsule 900 mg daily. 1 Active carbidopa-levod opa (SINEMET) 25-100 mg per tablet Take 2 tablets by mouth 4 (four) times a day. 2 Active azelastine (ASTELIN) 137 mcg (0.1 %) nasal spray INHALE 2 SPRAYS EACH NOSTRIL TWICE DAILY NEEDED 3 Active propranoloL (INDERAL) 10 MG immediate release tablet Take 10 mg by mouth 2 (two) times a day. 3 Active vibegron (GEMTESA) 75 mg tablet Take 75 mg by mouth daily. Active b complex vitamins capsule Vit B Complex - 1 capsule/tablet by mouth three times daily for 1 month. After 1 month, reduce to once daily. 90 capsule 3 4 Active diclofenac sodium (VOLTAREN) 1 % Gel Apply 2 g topically 4 (four) times a day. 150 g 3 4 Active neomycin-polymy karla B-hydrocortison e (CORTOMYCIN) 3.5-10,000-1 mg/mL-unit/mL-% otic suspension 3 drops by Each Ear route 3 (three) times a day. 10 mL 4 Active fluoride, sodium, (SODIUM FLUORIDE 5000 DRY MOUTH) 1.1 % Pste USE AT NIGHT.FLOSS FIRST THEN BRUSH FOR 2 MINUTES. SPIT EXCESS.DO NOT RINSE, EAT OR DRINK FOR 30 MIN Active alclometasone (ACLOVATE) 0.05 % cream APPLY TO AFFECTED AREA ON PENIS TWICE DAILY FOR THREE WEEKS THEN NEEDED. Active amoxicillin (AMOXIL) 500 MG capsule TAKE 4 CAPSULES BY MOUTH ONE HOUR PRIOR TO DENTAL APPOINTMENT. Active chlorhexidine (PERIDEX) 0.12 % solution SWISH AND SPIT 15ML EVERY MORNING AND EVENING FOR 2WEEKS.DONOT SWALLOW Active mirabegron (MYRBETRIQ) 25 mg Tb24 TAKE 1 TABLET BY MOUTH DAILY FOR 30 DAYS. DO NOT CRUSH OR CHEW Active terazosin (HYTRIN) 5 MG capsule Take 1 capsule by mouth nightly at bedtime. Active fluticasone propionate (FLONASE) 50 mcg/actuation nasal spray 1 spray by Nasal route daily. 16 g 3 5 Active ciprofloxacin HCl (CIPRO) 250 MG tabletIndicatio ns:Urinary tract infection Take 1 tablet (250 mg total) by mouth 2 (two) times a day. 20 tablet Active Hospital, Clinic, or Other Facility Administered Medication Ordered Dose Route Frequency Start Date End Date Status lidocaine (PF) (XYLOCAINE-MPF) 1% injection 1 mLIndications:Chronic pain of right knee 1 mL IAtc Once 05/21/2025 08/19/2025 Active triamcinolone acetonide (KENALOG-40) 40 mg/mL injection 40 mgIndications:Chronic pain of right knee 40 mg IAtc Once 05/21/2025 08/19/2025 Active Active Problems Patient Care Coordination No te Formatting of this note migh t be different from the original. Neurology: Dr. Ugo Gerber, [facility] Cardiology: Dr. Sal, [facility] Problem Noted Date Diagnosed Date Acute pain of right shoulder 10/27/2023 Assessment & Plan (12/27/2023 11:46 PM EDT): Improved after injection, continue monitoring. Assessment & Plan (10/27/2023 11:39 PM EST): Patient with new onset pain in his right shoulder with decreased range of motion. Consistent with rotator cuff impingement and shoulder bursitis. We discussed home exercises and treatment with cortisone injection. Will need x-ray, plan injection same day. 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 No change at this time. Assessment & Plan (02/14/2024 11:15 PM EDT): Slightly low today-continue monitoring. Denies any significant lightheadedness or dizziness recently. Old tear of meniscus of right knee 09/11/2021 Overview (09/11/2021): Monitored with [facility] Assessment & Plan (09/11/2021 12:38 PM EST): Not bothersome at this time Seen with [facility], conservative management for now Presbycusis of both ears 09/11/2021 Assessment & Plan (09/11/2021 12:39 PM EST): History of cerumen impaction affecting hearing, but none on exam today Has noticed increased high-frequency loss -Refer to [facility] for further evaluation Cataracts, bilateral 04/24/2019 Assessment & Plan (04/24/2019 12:46 PM EDT): Medically cleared for bilat cataract surgery starting 05/17/2019 Peripheral venous insufficiency 04/24/2019 Assessment & Plan (04/24/2019 12:47 PM EDT): No sign CHF or DVT and hard time using support hose Meralgia paresthetica of right side 03/17/2019 Prediabetes 09/08/2018 Assessment & Plan (12/27/2023 11:44 PM EDT): Check A1c Assessment & Plan (09/12/2018 9:53 AM EST): Diabetes polyphagia polyuria polydipsia and no visual changes recommend checking labs dietary and exercise recommendations Neuropathy 09/08/2018 Assessment & Plan (02/18/2025 1:04 PM EDT): Stable and unchanged, continue monitoring. Assessment & Plan (12/27/2023 11:45 PM EDT): Patient with known neuropathy, now with increasing pain in his feet bilaterally. Unclear as to cause. Will check labs as below. Assessment & Plan (09/12/2018 9:52 AM EST): She with some neuropathy question if the recheck B12 but he is seeing neurology probably idiopathic Atherosclerosis of coronary artery 08/11/2017 Assessment & Plan (04/24/2019 12:45 PM EDT): Sees Dr. Luevano on a yearly basis and stable angina wo need for EKG or repeat labs Assessment & Plan (09/12/2018 9:51 AM EST): Without any symptoms recommend continue medications beta-arnoldo and statin and aspirin follow-up cardiology yearly Benign prostatic hyperplasia 08/11/2017 Assessment & Plan (09/12/2018 9:51 AM EST): Normal symptoms negative exam for prostate cancer on both Proscar and Hytrin Hyperlipidemia 08/11/2017 Assessment & Plan (09/12/2018 9:52 AM EST): With hyperlipidemia on Lipitor 40 question some myalgias recommend checking sed rate for PMR if negative to consider short course of prednisone but also trial a week or 2 off the atorvastatin Parkinson's disease 08/11/2017 Assessment & Plan (02/18/2025 1:05 PM EDT): Patient reports some increase in tremor, has been tolerating medications well, no change at this time. Recommend follow-up with neurology for further treatment options however suspect this is natural disease progression Assessment & Plan (08/17/2024 2:54 PM EST): Has been stable and unchanged-does have mild progression continuing. He follows with neurology for this. Continue monitoring. No change at this time. Assessment & Plan (02/14/2024 11:16 PM EDT): Manageable with current equipment as well as new items he has acquired. Will continue monitoring. Assessment & Plan (12/27/2023 11:45 PM EDT): Declining of current ADLs, recommend evaluate for home services. Referral placed today. Assessment & Plan (12/21/2022 9:27 PM EDT): Stable currently on medications, no changes 7. Continue monitoring. Has had neurogenic hypotension in the past, well controlled today. Assessment & Plan (08/03/2022 8:53 PM EST): His Parkinson's has progressed but he is still mobile. Referral for PT entered as requested by his neurologist. Assessment & Plan (09/11/2021 12:44 PM EST): Seems to be progressing since last year, with increasing weakness of his upper and lower extremities Necessitating increase in Sinemet in the last year Continues to see his neurologist, will monitor Heavy breathing with exertion is likely due to decreased swing phase of his steps, necessitating more steps to cover the same distance Does not seem to have any other signs or symptoms associated with respiratory or pulmonary etiology -Encouraged him to continue his home PT regimen, keep himself as strong as active as he can Assessment & Plan (04/24/2019 12:46 PM EDT): Stable on meds wo falls Assessment & Plan (03/31/2019 11:25 AM EDT): Patient sees neurologist on a regular basis overall is been fairly stable successful switch from metoprolol to atenolol with slight decrease in his attention tremor. rec continue reg exercise Assessment & Plan (09/12/2018 9:53 AM EST): New doc meriplex and change to inderal on exam and history seem to be doing much better Restless legs syndrome 08/11/2017 Assessment & Plan (12/27/2023 11:46 PM EDT): Does have known restless leg, however he reports this feels different to his prior previous symptoms. Seems to have more of a cramping sensation. Will trial vitamin B complex along with checking labs. Assessment & Plan (09/11/2021 12:36 PM EST): Taking Mirapex prescribed by his neurologist Symptoms manageable Seborrhea 08/11/2017 EFRAIN (obstructive sleep apnea) 12/25/2015 Resolved Problems Problem Noted Date Diagnosed Date Resolved Date History of left hip replacement 12/10/2022 12/10/2022 Rhinorrhea 12/02/2020 02/18/2025 Assessment & Plan (11/16/2024 10:22 PM EST): Trial Flonase and monitor for effect. Okay to continue azelastine. 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 He could try Cytoxan and some other medications this would probably be best on the role of either dermatology or rheumatology since his autoimmune type problem. Patient is in agreement this time not to do any consults unless things get worse Annual physical exam 09/12/2018 023 Assessment & Plan (09/12/2018 9:50 AM EST): Overall date and colonoscopies no depression no glaucoma or sign of prostate cancer .////doing well exercising no depression needs shingles vaccination and needs hearing eval. Colon polyp 08/11/2017 12/10/2022 Assessment & Plan (09/12/2018 9:52 AM EST): With a history of colonic polyps follow-up per GI recommendation Ischemic colitis 08/11/2017 12/10/2022 Low back pain 08/11/2017 12/10/2022 Encounters Date Type Department Care Team Description 05/21/2025 9:00 AM EDT Office Visit [facility] [address] [place] [address] Dr [place], [place] [address] Richard Hood, Chronic pain of right knee (Primary Dx) from Last 3 Months Immunizations Immunization Administration Dates Next Due COVID-19 (Pre-07/05) Pfizer Vaccine, mRNA, PF 11/06/2020,10/16/2020 INFLUENZA, SPLIT VIRUS, TRIV ALENT W/ PRESERVATIVE IM 05/24/2017,06/20/2015,07/05/2014,05/14,05/22/2010 Influenza High-Dose Quadriva lent Preservative Free IM 06/30/2021,05/31/2020 Influenza High-Dose Trivalen t Preservative Free IM 06/29/2024,06/09/2019,06/28/2018,05/30,05/19/2017,07/22/2016,07/05/2013 ,05/22/2010 Influenza Quadrivalent Adjuv anted Preservative Free IM 06/07/2023,06/05/2022 Influenza, Unspecified Formulation 07/05/2013, Pneumococcal conjugate PCV13 05/18/2017,06/20/20 15 Pneumococcal polysaccharide PPSV23 04/17/2020 RSV Vaccine (monovalent, adjuvanted) 05/20/2023 Td, unspecified formulation 03/02/2005 Tdap 04/15/2015,05/26/2012 Zoster live 09/03/2008 Zoster recombinant 07/02/2021,04/17/2020 Social History Tobacco Use Types Packs/Day Years Used Date Smoking Tobacco: Never Smokeless Tobacco: Never Tobacco Cessation:Counseling Given: Not Answered Alcohol Use Standard Drinks/Week Comments Never 0 (1 standard drink = 0.6 oz pur e alcohol) Home Health Assessment: Transportation Answer Date Recorded Lack of Transportation (Medical) No 02/18/2024 Lack of Transportation (Non-Medical) No 02/18/2024 Patient Unable or Declines to Respond No 02/18/2024 Child or Family Care Answer Date Record ed Do you have problems with on e of the following making it difficult for you to work, study, or receive health care? No 03/03/2021 Education Answer Date Recorded Are you interested in more education? Not on bebo e 03/08/2023 Are you concerned about learning? Not on file 03/08/2023 No 03/08/2023 No 03/08/2023 Food Answer Date Recorded Within the past 6 months we worried whether our food would run out before we got money to buy more. Never True 03/03/2021 Within the past 6 months the food we bought just didn't last and we didn't have enough money to get more. Never True Residential Stability Answer Date Recor ded What is your housing situation today? I have gagandeep red 03/03/2021 How many times have you move d in the past 12 months? Zero (I did not move) 03/03/2021 06 Are you worried that in t he next 2 months, you may not have your own housing to live in? No 03/03/2021 Paying for Meds Answer Date Recorded Do you have trouble paying for medicines? No 03/03/2021 Paying Utility Bills Answer Date Record ed Do you have trouble paying your heating or elect ricity bill? No 03/03/2021 Transportation Answer Date Recorded Has the lack of transportati on kept you from medical appointments or from getting medications? No 03/03/2021 Unemployment Answer Date Recorded Are you currently unemployed or working on a part-time or temporary basis, and looking for work? No 03/03/2021 Digital Access Answer Date Recorded No 02/08/2023 No 02/08/2023 Reliable internet access at home? Not on file 02/08/2023 Device with a working camera? Not on file Intimate Partner Violence Answer Date R ecorded Denied Basic Needs Not on file 05/21/2025 In the past 12 months have y ou been in a relationship with a person who hurts, threatens, or tries to control you? No 05/21/2025 Worried food would run out Not on file 05/21 In the past 12 months have y ou been in a relationship with a person who hurts, threatens, or tries to control you? No 05/21/2025 Sex and Gender Information Value Date Recorded Sex Assigned at Male 10/13/2020 8:27 PM EST Legal Sex Male 3:01 PM EDT Gender Identity Male 10/13/2020 8:27 PM EST Sexual Orientation Straight 10/13/2020 8: 27 PM EST Last Filed Vital Signs Vital Sign Reading Time Taken Comments Blood Pressure 124/64 05/21/2025 9:12 AM EDT Pulse 64 05/21/2025 9:12 AM EDT Temperature 36 C (96.8 F) 11/16/2024 9:08 AM EST Respiratory Rate 20 02/18/2024 11:58 AM EDT Oxygen Saturation 97% 05/21/2025 9:12 AM EDT Inhaled Oxygen Concentration - - Weight 92.1 kg (203 lb) 05/21/2025 9:12 AM EDT Height 182.9 cm (6' 0.01 ) 05/18/2024 11:04 AM E DT Body Mass Index 27.53 05/18/2024 11:04 AM EDT Plan of Treatment Upcoming Encounters Date Type Department Care Team (Late st Contact Info) Description 10/05/2025 4:00 PM EST Office Visit [facility] [address] [place] [address] Richard Hood DO [address] [facility], [address] [place] [address] [email or web address] Health Maintenance Due Date Last Done Comments INFLUENZA VACCINE (#1) 2025 , 06/07/2023, 06/05/2022, Additional history exists Adult Td,Tdap Booster 04/15/2025 04/15/2015 , 05/26/2012, 03/02/2005 COVID-19 VACCINE ( season) 2025 05/25/2024, 2023, 06/13/2023, Additional history exists DEPRESSION SCREENING 05/21/2026 05/21/2025 PNEUMOCOCCAL VACCINES (50+ years) Completed 04/17/2020, 05/18/2017, 06/20/2015 ZOSTER VACCINES Completed 07/02/2021, 01/2020, 09/03/2008 RSV VACCINE Completed 05/20/2023 HEPATITIS A VACCINES Aged Out No long er eligible based on patient's age to complete this topic HIB VACCINES Aged Out No longer eligi ble based on patient's age to complete this topic MENINGOCOCCAL VACCINES (ACWY) Aged Out No longer eligible based on patient's age to complete this topic MENINGOCOCCAL VACCINES (B) Aged Out N o longer eligible based on patient's age to complete this topic Medical Devices Not on file Procedures Procedure Name Priority Date/Time Associated Diagnosis Comments JOINT ASPIRATION/INJECTIO N Routine 05/21/2025 9:52 AM EDT Chronic pain of right knee from Last 3 Months Results * JOINT ASPIRATION/INJECTION (05/21/2025 9:52 AM EDT) Other Narrative Richard Hood DO - 05/21/2025 9:52 AM EDT Richard Hood DO 05/21/2025 9:52 AM Joint aspiration/injection Date/Time: 05/21/2025 9:52 AM Performed by: Richard Hood DO Authorized by: Richard Hood DO [place] Protocol: Consent obtained: Yes Time out: Immediately prior to the procedure a time-out was called A time out verifies correct patient, procedure, equipment and site/side marked as required: Indications: Indications: Pain Location: Body area: Knee Joint: Right knee Local anesthesia used?: Yes Anesthesia: Topical Patient sedated?: No Procedure details: Preparation: Patient was prepped and draped in usual sterile fashion Approach: Anterior Aspirate amount (ml): 0 Triamcinolone amount (mg): 40 Lidocaine 1% amount (ml): 1 Patient tolerance: Patient tolerated the procedure well with no immediate complications cryofreeze for topical anesthesia. 21 gauge needle 1 1/2 in for injection. Richard Hood DO PROCEDURE/MINOR SURGICA L ORDERABLES Final Result from Last 3 Months Insurance MEDICARE PART A & B [facility] MEDICARE PPO BLUE REPLACEMENT MEDICARE PART A & B MEDICARE PPO BLUE REPLACEMENT MEDICARE PART A & B MEDICARE PART A & B MEDICARE PART A & B [place] BL[place] RE[place]AC[place] MEDICARE PART A & B MEDICARE PPO BLUE REPLACEMENT MEDICARE PART A & B [id number] [place] [address] MEDICARE PPO BLUE REPLACEMENT MEDICARE PART A & B MEDICARE PART A & B [place] MED[place] P[place] BLUE REPLACEMENT Advance Directives For more information, please contact: [phone] (9AM - 5PM Richelle/[facility], Wednesday-Wednesday) Documents on File Type Date Recorded Patient Terrazzo Worker Helper Shira ESPARZA 12/10/2022 [facility] Care Teams Boxer Operator Relationship Specialty Start Date End Date Richard Hood DO [address] [place] [address], [address] [place] [address] [email or web address] PCP - General Internal Medicine 08/05/22 Alex Patel MD [address] [place], [place] [address] [address] [email or web address] Historical LMR Provider 06/28/17 Additional Source Comments The information contained in this document represents components of the legal health record. It is not the complete legal health record.[facility]
--- OUTSIDE RECORDS SUMMARY | 2025-05-28 18:32 | XMS_ITS | Encounter Summary ---
Author Organization [facility] Address [address] [place] [address] Care Team Providers Care Teachers Assistant Name Role Phone Barron Hood Primary Care Provider [phone] Reason for Visit * Reason Comments E-prescribing Refill Request Encounter Details Date Type Department Care Team ([facility] st Contact Info) Description 05/08/2025 Refill [facility] Neurology [address] [address] Ugo Gerber MD [address] [facility] [address] [place] [address] [place] [id number] E-prescribing Refill Request Social History Tobacco Use [...] Telephone Encounter - Janet Hatfield RN - 05/09/2025 9:09 AM EDT Dose changed at the 12/12/24 OV Refused rx documented in this encounter Plan of Treatment Upcoming Encounters Date Type Department Care Team ([facility] st Contact Info) Description 06/22/2025 11:30 AM EDT Office Visit [facility] Neurology [address] [facility] [address] [place] [address] Ugo Gerber MD 123 [facility] 230 [place] [address] [facility] documented as of this encounter Visit Diagnoses Not on filedocumented in this encounter Care Teams Teachers Assistant Relationship Specialty Start Date End Date Barron Hood [address] [facility] [address] [place] [address] PCP - General Internal Medicine 10/13/22 documented as of this encounter
--- OUTSIDE RECORDS SUMMARY | 2025-05-28 18:32 | XMS_ITS | Encounter Summary ---
Author Organization [facility] Address [address] [place] [address] Care Team Providers Care Opto Mechanical Engineer Name Role Phone Alex Patel MD Primary Care Provider [phone] Mirella Gerardo MD Primary Care Provider [phone] Barron Hood Primary Care Provider [phone] Reason for Visit * Reason Comments E-prescribing Refill Request Encounter Details Date Type Department Care Team (Late st Contact Info) Description 11/14/2020 Refill [facility] Neurology [address] [facility] 230 [place] [address] Ugo Gerber MD [address] [id number] E-prescribing Refill Request Social History Tobacco Use [...] Phone 12/27/20 2:15 PM Ugo Gerber MD [facility] Neurology [address] 12/27/20 3:00 PM Krystal Mendoza PT [facility] Rehabilitation [phone] Pertinent lab results: No labs suggested for any medication orders signed or pended in this encounter. Refresh if any orders changed. Allergies: Patient has no allergy information on record. BP Readings from Last 1 Encounters: 09/29/19 (!) 94/57 Patient Active Problem List Diagnosis Date Noted ??? Parkinson disease ([facility]) -PT -PD clinic 03/17/2019 ??? Meralgia paresthetica of right side 03/17/2019 ??? Parkinson disease ([facility]) 03/07/2018 Current Outpatient Medications on [...] tablet by mouth 4 (four) times a [id number] tablet 3 ??? Gabapentin (NEURONTIN) 300 MG [...] Care Team (Late st Contact Info) Description 06/22/2025 11:30 AM EDT Office Visit [facility] Neurology [address] [facility] 230 [place] [address] Ugo Gerber MD 123 [facility] 230 [place] [address] [address] [facility] documented as of this encounter Visit Diagnoses Not on filedocumented in this encounter Care Teams Opto Mechanical Engineer Relationship Specialty Start Date End Date Alex Patel MD [address] [place], [place] [address] [address] PCP - General Family Medicine 01/21/18 07/03/21 Mirella [facility] [address] [place] [address] [place] [address] PCP - General Family Medicine 07/04/21 10/12/22 Barron Hood [address] [facility] [address] [place] [address] PCP - General Internal Medicine 10/13/22 documented as of this encounter
--- OUTSIDE RECORDS SUMMARY | 2025-05-28 18:32 | XMS_ITS | Encounter Summary ---
Author Organization [facility] Address [address] [place] [address] Care Team Providers Care Anode Builder Name Role Phone Mirella Gerardo MD Primary Care Provider [phone] Barron Hood Primary Care Provider [phone] Reason for Visit * Reason Comments Parkinson's Disease Encounter Details Date Type Department Care Team ([facility] st Contact Info) Description 09/09/2022 Telephone [facility] [address] [facility] [address] [place] [address] Ugo Gerber MD 123 [facility] [place] [address] [place] [address] [id number] Parkinson's Disease Social History Tobacco Use Types [...] Phone 10/13/22 4:30 PM Ugo Gerber MD [facility] [address] 11/13/22 10:15 AM Ugo Gerber MD [facility] [address] 11/13/22 11:00 AM Phyllis Leahy, PT [facility] [address]/ Parkinson's [address] [...] of the Prami. * Telephone Encounter - Lucy Romero - 09/09/2022 11:19 AM EST Gian called [...] Upcoming Encounters Date Type Department Care Team ([facility] st Contact Info) Description 06/22/2025 11:30 AM EDT Office Visit [facility] [address] 123 [facility] 230 [place] [address] Ugo Gerber MD [address] [facility] 230 [place] [address] [facility] documented as of this encounter Visit Diagnoses Not on filedocumented in this encounter Care Teams Anode Builder Relationship Specialty Start Date End Date Mirella Gerardo MD [facility] Primary Care [address] [place] [address] [place] [address] PCP - General Family Medicine 07/04/21 10/12/22 Barron Hood [address] [facility] 15 [place] [address] PCP - General Internal Medicine 10/13/22 documented as of this encounter
--- OUTSIDE RECORDS SUMMARY | 2025-05-28 18:32 | XMS_ITS | Encounter Summary ---
Author Organization [facility] Address [address] [place] [address] Care Team Providers Care Jewel Waxer Name Role Phone Alex Patel MD Primary Care Provider [phone] Mirella Gerardo MD Primary Care Provider [phone] Barron Hood Primary Care Provider [phone] Reason for Visit * Reason Comments E-prescribing Refill Request Encounter Details Date Type Department Care Team (Late st Contact Info) Description 03/21/2020 Refill [facility] [address] 123 [facility] 230 [place] [address] Ugo Gerber MD [address] [id number] E-prescribing Refill Request Social History Tobacco Use [...] Phone 03/29/20 11:30 AM Ugo Gerber MD [facility] [address] Pertinent lab results: [...] tablet by mouth 4 (four) times a oml181 tablet 3 ??? Gabapentin (NEURONTIN) 300 MG [...] Description 06/22/2025 11:30 AM EDT Office Visit [facility] [address] [facility] [address] [place] [address] Ugo Gerber MD 123 [facility] [address] [place] [address] [place] [address] [facility] documented as of this encounter Visit Diagnoses Not on filedocumented in this encounter Care Teams Jewel Waxer Relationship Specialty Start Date End Date Alex Patel MD 29 [facility] [address] PCP - General Family Medicine 01/21/18 07/03/21 Mirella Gerardo MD [facility] Primary Care [address] [place] [address] [place] [address] PCP - General Family Medicine 07/04/21 10/12/22 Barron Hood [address] [facility] 15 [place] [address] PCP - General Internal Medicine 10/13/22 documented as of this encounter
--- OUTSIDE RECORDS SUMMARY | 2025-05-28 18:32 | XMS_ITS | Continuity of Care Document ---
Author Organization [facility] Address [address] [place] [address] Care Team Providers Care Robotic Toy Inventor Name Role Phone Barron Hood Primary Care Provider Encounters Date Type Department Care Team Description 05/12/2025 Refill [facility] [address] [address] Ugo Gerber MD E-prescribing Refill Request 05/08/2025 Refill [facility] [address] [address] Ugo Gerber MD E-prescribing Refill Request 04/16/2025 Refill [facility] [address] [address] Ugo Gerber MD E-prescribing Refill Request 12/12/2024 11:00 AM EDT Office Visit [facility] [address] [address] Ugo Gerber MD 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) 11/06/2024 Telephone [facility] [address] [address] Ugo Gerber MD Medication Check 10/28/2024 Refill [facility] [address] [address] Ugo Gerber MD Med Change Request; Refill Request 09/21/2024 Refill [facility] [address] [facility] [address] [place] [address] Ugo Gerber MD Refill Request 09/01/2024 Refill [facility] [address] [facility] [address] [place] [address] Ugo Gerber MD E-prescribing Refill Request 06/19/2024 Refill [facility] [address] [facility] [address] [place] [address] Ugo Gerber MD E-prescribing Refill Request 06/19/2024 Refill [facility] [address] [facility] [address] [place] [address] Ugo Gerber MD Refill Request 06/17/2024 Refill [facility] [address] [facility] [address] [place] [address] Ugo Gerber MD E-prescribing Refill Request 05/24/2024 Refill [facility] [address] [address] Ugo Gerber MD E-prescribing Refill Request 04/21/2024 Refill [facility] [address] [facility] 230 [place] [address] Ugo Gerber MD E-prescribing Refill Request 04/04/2024 4:45 PM EDT Office Visit [facility] [address] [facility] [address] [place] [address] Ugo Gerber MD 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) 03/24/2024 Refill [facility] [address] [facility] 230 [place] [address] Ugo Gerber MD E-prescribing Refill Request 03/13/2024 Telephone [facility] [address] [facility] [address] [place] [address] Ugo Gerber MD Appointment 03/09/2024 Refill [facility] [address] [facility] [address] [place] [address] Ugo Gerber MD E-prescribing Refill Request 12/13/2023 Refill [facility] [address] [facility] [address] [place] [address] Ugo Gerber MD E-prescribing Refill Request 12/06/2023 Refill [facility] [address] [facility] [address] [place] [address] Ugo Gerber MD Med Change Request 11/15/2023 Refill [facility] [address] [address] Ugo Gerber MD Refill Request (Sinemet ) 10/20/2023 Telephone [facility] [address] [facility] [address] [place] [address] Ugo Gerber MD Patient Questions 10/08/2023 2:15 PM EST Office Visit [facility] [address] [address] Ugo Gerber MD 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) 09/03/2023 Refill [facility] [address] [facility] [address] [place] [address] Ugo Gerber MD E-prescribing Refill Request 07/12/2023 Refill [facility] [address] [facility] [address] [place] [address] Ugo Gerber MD Refill Request (Mirapex) 04/10/2023 Refill [facility] [address] [facility] [address] [place] [address] Ugo Gerber MD Refill Request 04/03/2023 Refill [facility] [address] [facility] [address] [place] [address] Ugo Gerber MD E-prescribing Refill Request 04/02/2023 2:15 PM EDT Office Visit [facility] [address] [address] Ugo Gerber MD Parkinson disease (Primary Dx) 03/26/2023 Refill [facility] [address] [facility] [address] [place] [address] Ugo Gerber MD E-prescribing Refill Request 03/22/2023 Refill [facility] [address] [address] Ugo Gerber MD Refill Request (Propranolol ) 03/08/2023 Refill [facility] [address] [address] Ugo Gerber MD E-prescribing Refill Request 03/01/2023 Refill [facility] [address] [address] Ugo Gerber MD Refill Request (Sinemet) 10/13/2022 4:30 PM EST Office Visit [facility] [address] [address] Ugo Gerber MD Parkinson disease (Primary Dx); Neurogenic orthostatic hypotension 09/21/2022 Refill [facility] [address] [facility] [address] [place] [address] Ugo Gerber MD Refill Request (Gabapentin) 09/09/2022 Telephone [facility] [address] [address] Ugo Gerber MD Parkinson's Disease 06/29/2022 Refill [facility] [address] [facility] [address] [place] [address] Ugo Gerber MD E-prescribing Refill Request 05/01/[address] [address] Canole, Naomie, PT Physical Therapy (PT Referral ) 05/01/2022 12:00 PM EDT Minor Procedure/Test [facility] [address]/ Parkinson's [address] [place] [address] Canole, Naomie, PT Parkinson disease (Primary Dx) 05/01/2022 11:15 AM EDT Office Visit [facility] [address] [address] Ugo Gerber MD Parkinson disease (Primary Dx) 03/20/2022 Refill [facility] [address] [address] Ugo Gerber MD Refill Request 01/13/2022 Orders Only [facility] [address]/ Parkinson's [address] [place] [address] Canole, Naomie, PT 01/09/2022 2:30 PM EDT Office Visit [facility] [address]/ Parkinson's [address] [place] [address] Canole, Naomie, PT Parkinson disease (Primary Dx) 01/09/2022 1:45 PM EDT Office Visit [facility] [address] [address] Ugo Gerber MD Parkinson disease (Primary Dx) 11/18/2021 Refill [facility] [address] [address] Ugo Gerber MD E-prescribing Refill Request 10/01/2021 Refill [facility] [address] [address] Ugo Gerber MD E-prescribing Refill Request 07/15/2021 Orders Only [facility] [address]/ Parkinson's [address] [place] [address] Krystal Mendoza, PT 07/04/2021 2:00 PM EDT Office Visit [facility] [address]/ Parkinson's [address] [place] [address] Krystal Mendoza, PT Parkinson disease (Primary Dx) 07/04/2021 1:15 PM EDT Office Visit [facility] [address] [facility] [address] [place] [address] Ugo Gerber MD Parkinson disease (Primary Dx) 02/19/2021 Refill [facility] [address] [facility] 230 [place] [address] Ugo Gerber MD E-prescribing Refill Request 12/27/2020 Travel 12/27/2020 2:15 PM EDT Office Visit [facility] [address] [address] Ugo Gerber MD Parkinson disease (Primary Dx); Rhinorrhea 12/02/2020 Refill [facility] [address] [facility] 230 [place] [address] Jacque Sampson MD E-prescribing Refill Request 11/14/2020 Refill [facility] [address] [facility] [address] [place] [address] Ugo Gerber MD E-prescribing Refill Request 09/16/2020 Refill [facility] [address] [address] Ugo Gerber MD Refill Request 03/29/2020 Travel 03/29/2020 11:30 AM EDT Office Visit [facility] [address] [facility] [address] [place] [address] Ugo Gerber MD Parkinson disease 03/21/2020 Refill [facility] [address] [facility] [address] [place] [address] Ugo Gerber MD E-prescribing Refill Request 03/21/2020 Refill [facility] [address] [facility] [address] [place] [address] Ugo Gerber MD 03/13/2020 Refill [facility] [address] [facility] [address] [place] [address] Ugo Gerber MD E-prescribing Refill Request 01/17/2020 Orders Only [facility] [address]/ Parkinson's [address] [place] [address] Krystal Mendoza, PT 10/26/2019 Telephone [facility] [address] [address] Ugo Gerber MD Medication Check 10/13/2019 Orders Only [facility] [address]/ Parkinson's [address] [place] [address] Krystal Mendoza, PT 09/29/2019 2:30 PM EST Office Visit [facility] [address]/ Parkinson's [address] [place] [address] Krystal Mendoza, PT Parkinson disease (Primary Dx) 09/29/2019 1:30 PM EST Office Visit [facility] [address] [facility] [address] [place] [address] Ugo Gerber MD Parkinson disease (Primary Dx) 09/21/2019 Refill [facility] [address] [address] Jacque Sampson MD E-prescribing Refill Request 03/17/2019 1:30 PM EDT Office Visit [facility] [address]/ Parkinson's [address] [place] [address] Krystal Mendoza, PT Parkinson disease (Primary Dx) 03/17/2019 12:30 PM EDT Office Visit [facility] [address] [facility] [address] [place] [address] Ugo Gerber MD Parkinson disease (Primary Dx); Meralgia paresthetica of right side 02/08/2019 Refill [facility] [address] [facility] [address] [place] [address] Ugo Gerber MD E-prescribing Refill Request 12/23/2018 Telephone [facility] [address] [facility] [address] [place] [address] Ugo Gerber MD Follow Up 12/21/2018 Refill [facility] [address] [facility] [address] [place] [address] Ugo Gerber MD Refill Request 10/03/2018 Telephone [facility] [address] [facility] [address] [place] [address] Ugo Gerber MD Physical Therapy 09/23/2018 Telephone [facility] [address] [facility] [address] [place] [address] Ugo Gerber MD Parkinson's Disease 09/16/2018 11:30 AM EST Office Visit [facility] [address]/ Parkinson's [address] [place] [address] Phyllis Leahy, PT Parkinson disease (Primary Dx) 09/16/2018 10:30 AM EST Office Visit [facility] [address] [facility] [address] [place] [address] Ugo Gerber MD Parkinson disease (Primary Dx) 07/11/2018 Telephone [facility] [address] [facility] [address] [place] [address] Ugo Gerber MD Medication Check 05/25/2018 Refill [facility] [address] [facility] [address] [place] [address] Ugo Gerber MD Refill Request 04/25/2018 Refill [facility] [address] [facility] [address] [place] [address] Ugo Gerber MD Refill Request 03/09/2018 Telephone [facility] [address] [facility] [address] [place] [address] Ugo Gerber MD F/u From OV 03/07/2018 11:15 AM EDT Consult (Initial) [facility] [address] [facility] [address] [place] [address] Ugo Gerber MD Parkinson disease (Primary Dx) 02/20/2018 Telephone [facility] [address] [facility] 230 [place] [address] Ugo Gerber MD Information 11/29/2017 Consult (Initial) [...] 250 MG Tab Take by mouth Active Gemtesa 75 MG Tab Take 75 mg by mouth 1 (one) time each day Pt takes one tablet in the morning . Active Gabapentin (NEURONTIN) 300 MG capsule Take three capsules (900 mg total) by mouth every night. 270 capsule 3 09/21/19 25 026 Active Pramipexole Dihydrochloride (MIRAPEX) 0.5 MG tablet Take one tablet (0.5 mg total) by mouth 4 times daily. 360 tablet 3 12/13/19 25 026 Active Rasagiline Mesylate (AZILECT) 1 MG tablet Take one tablet (1 mg total) by mouth 1 (one) time each day. 90 tablet 3 12/13/19 25 Active Carbidopa-Levodopa (SINEMET) 25-100 MG per tablet TAKE 2 TABLETS 4 TIMES DAILY 720 tablet 3 04/16/20 25 Active Propranolol HCl (INDERAL) 10 MG tablet TAKE 1 TABLET TWICE A DAY 180 tablet 05/16/20 25 Active Propranolol HCl (INDERAL) 10 MG tablet take 1 tablet twice a day 180 tablet 3 05/24/20 24 025 Discontinued Active Problems Problem Noted Date Diagnosed Date Neurogenic orthostatic hypotension 10/13/2022 Parkinson disease ([facility]) -PT -PD clinic 9 Meralgia paresthetica of right side 03/17/2019 Parkinson disease 03/07/2018 Immunizations Immunization Administration Dates Next Due COVID-19, mRNA (Moderna Pre Fall 2022) Monovalent, 100 mcg/0.5 ml or 50 mcg/0.25 ml dose 12/13/2021 COVID-19, mRNA (Moderna Pre Fall 2022) bivalent, 25 mcg/0.25 ml (6 months - 11 years) or 50 mcg/0.5 ml (12+ years) 06/05/2022 COVID-19, mRNA (Moderna Spik evax) Seasonal, 50 mcg/0.5 mL (12+) 06/13/2023 COVID-19, mRNA (Pfizer Pre 2022) Monovalent, 30 mcg/0.3 ml 06/17/2021,11/06/2020,10/16/2020 Influenza (SEASONAL) - 06/08/2008 Influenza, Quad, Inactivated , Adjuvanted, Preser Fr 06/07/2023,06/05/2022 Influenza,high dose seasonal,trivalent,PF (Fluzone HD) 06/09/2019,06/28/2018,05/30/2018,2016,07/22/2016,07/05/2013 Influenza,high-dose, Quadrivalent 06/30/2021, Influenza,seasonal,trivalent ,preserva tive (FLUZONE MDV) 06/20/2015,07/05/2014,05/14/2011,2009 PCV-13 05/18/2017,06/20/2015 PPV23 (Pneumovax) 04/17/2020 RSV Recombinant Adjuvant, 0. 5 ML (Arexvy) 05/20/2023 Tdap 04/15/2015,05/26/2012 Zoster (Shingrix) 07/02/2021,04/17/2020 Zoster (Zostavax) 09/03/2008 Social History Smoking Status as of 05/28/2025 Tobacco Use Types Packs/Day Years Used Date [...] Upcoming Encounters Date Type Department Care Team ([facility] st Contact Info) Description 06/22/2025 11:30 AM EDT Office Visit [facility] [address] [address] Ugo Gerber MD 123 [facility] [place] [address] [place] [address] [facility] Visit Diagnoses Diagnosis Start Date Parkinson disease (HCC) Paralysis agitans 03/07/2018 Parkinson disease (HCC) Paralysis agitans 09/16/2018 Parkinson disease (HCC) Paralysis agitans 09/16/2018 Parkinson disease (HCC) Paralysis agitans 10/03/2018 Parkinson disease (HCC) Paralysis agitans 03/17/2019 Parkinson disease (HCC) Paralysis agitans 03/17/2019 Meralgia paresthetica of right side Meralgia paresthetica 03/17/2019 Parkinson disease (HCC) Paralysis agitans 09/29/2019 Parkinson disease (HCC) Paralysis agitans 09/29/2019 Parkinson disease (HCC) -PT -PD clinic Paralysis agitans 10/13/2019 Parkinson disease (HCC) Paralysis agitans 01/17/2020 Parkinson disease (HCC) Paralysis [...] with dyskinesia and fluctuating manifestations (HCC) 04/04/2024 Parkinson's disease with dyskinesia and fluctuating manifestations (HCC) 12/12/2024 Care Teams Robotic Toy Inventor Relationship Specialty Start Date End Date Barron Hood [address] [facility] [address] [place] [address] PCP - General Internal Medicine 10/13/22
== END 2025-05-28 14:25 | disposition home or self-care (01) ==
LOC: HO.HUSH 13:22
PROVIDERS: PCP Pediatrics; Visit Provider Nurse Practitioner Family
DX: R31.29 Other microscopic hematuria (principal); R39.9 Unspecified symptoms and signs involving the genitourinary system; N28.1 Cyst of kidney, acquired; N32.3 Diverticulum of bladder; Z13.9 Encounter for screening, unspecified
CPT/HCPCS: 99213

== ENCOUNTER 2025-05-28 13:22 | Outpatient (REF) | payer BC, SELFPAY ==
--- OUTSIDE RECORDS SUMMARY | 2025-05-30 17:21 | XMS_ITS | Encounter Summary ---
Author Organization [facility] Address [address] [place] [address] Care Team Providers Care Final Inspector Paper Name Role Phone Barron Hood Primary Care Provider [phone] Reason for Visit * Reason Comments E-prescribing Refill Request Encounter Details Date Type Department Care Team ([facility] st Contact Info) Description 05/08/2025 Refill [facility] [address] [address] Ugo Gerber MD [address] [facility] [address] [place] [address] [place] [address] E-prescribing Refill Request Social History Tobacco Use [...] Upcoming Encounters Date Type Department Care Team ([facility] st Contact Info) Description 06/22/2025 11:30 AM EDT Office Visit [facility] [address] 123 [facility] 230 [place] [address] Ugo Gerber MD 123 [facility] 230 [place] [address] [facility] documented as of this encounter Visit Diagnoses Not on filedocumented in this encounter Care Teams Final Inspector Paper Relationship Specialty Start Date End Date Barron Hood [address] [facility] [address] [place] [address] PCP - General Internal Medicine 10/13/22 documented as of this encounter
--- OUTSIDE RECORDS SUMMARY | 2025-05-30 17:21 | XMS_ITS | Encounter Summary ---
Author Organization [facility] Address [address] [place] [address] Care Team Providers Care Diamond Selector Name Role Phone Alex Patel MD Primary Care Provider [phone] Mirella Gerardo MD Primary Care Provider [phone] Barron Hood Primary Care Provider [phone] Reason for Visit * Reason Comments E-prescribing Refill Request Encounter Details Date Type Department Care Team (Late st Contact Info) Description 03/21/2020 Refill [facility] Neurology [address] [facility] 230 [place] [address] Ugo Gerber MD [address] [id number] E-prescribing Refill Request Social History Tobacco Use [...] Phone 03/29/20 11:30 AM Ugo Gerber MD [facility] Neurology [address] Pertinent lab results: No labs suggested for any medication orders signed or pended in this encounter. Refresh if any orders changed. Allergies: Patient has no allergy information on record. BP Readings from Last 1 Encounters: 09/29/19 (!) 94/57 Patient Active Problem List Diagnosis Date Noted ??? Parkinson disease ([facility]) -PT -PD clinic 03/17/2019 ??? Meralgia paresthetica of right side 03/17/2019 ??? Parkinson disease ([facility]) 03/07/2018 Current Outpatient Medications on File Prior to Visit Medication Sig Dispense Refill ??? Pramipexole Dihydrochloride (MIRAPEX) 0.25 MG tablet TAKE 1 TABLET BY MOUTH THREE TIMES A DAY 270 tablet 3 ??? Carbidopa-Levodopa (SINEMET) 25-100 MG per tablet Take one tablet by mouth 4 (four) times a [id number] tablet 3 ??? Gabapentin (NEURONTIN) 300 MG [...] Description 06/22/2025 11:30 AM EDT Office Visit [facility] Neurology [address] [facility] [address] [place] [address] Ugo Gerber MD [address] [facility] [address] [facility] [address] [place] [address] [facility] documented as of this encounter Visit Diagnoses Not on filedocumented in this encounter Care Teams Diamond Selector Relationship Specialty Start Date End Date Alex Patel MD 29 [facility] [place] [address] PCP - General Family Medicine 01/21/18 07/03/21 Mirella Gerardo MD [facility] Primary [facility] [address] [place] [address] [place] [address] PCP - General Family Medicine 07/04/21 10/12/22 Barron Hood [address] [facility] 15 [place] [address] PCP - General Internal Medicine 10/13/22 documented as of this encounter
--- OUTSIDE RECORDS SUMMARY | 2025-05-30 17:21 | XMS_ITS | Encounter Summary ---
Author Organization [facility] Address [address] [place] [address] Care Team Providers Care Senior Production Manager Name Role Phone Mirella Gerardo MD Primary Care Provider [phone] Barron Hood Primary Care Provider [phone] Reason for Visit * Reason Comments Parkinson's Disease Encounter Details Date Type Department Care Team ([facility] st Contact Info) Description 09/09/2022 Telephone [facility] Neurology [address] [facility] [address] [place] [address] Ugo Gerber MD 123 [facility] [place] [address] [place] [address] [id number] Parkinson's Disease Social History Tobacco Use Types [...] Phone 10/13/22 4:30 PM Ugo Gerber MD [facility] Neurology [address] 11/13/22 10:15 AM Ugo Gerber MD [facility] Neurology [address] 11/13/22 11:00 AM Phyllis Leahy, PT [facility] Rehabilitation OT [address]/ [...] Upcoming Encounters Date Type Department Care Team ([facility] st Contact Info) Description 06/22/2025 11:30 AM EDT Office Visit [facility] Neurology [address] [facility] 230 [place] [address] Ugo Gerber MD [address] [facility] 230 [place] [address] [facility] documented as of this encounter Visit Diagnoses Not on filedocumented in this encounter Care Teams Senior Production Manager Relationship Specialty Start Date End Date Mirella Gerardo MD [facility] Primary Care [address] [place] [address] [place] [address] PCP - General Family Medicine 07/04/21 10/12/22 Barron Hood [address] [facility] 15 [place] [address] PCP - General Internal Medicine 10/13/22 documented as of this encounter
--- OUTSIDE RECORDS SUMMARY | 2025-05-30 17:21 | XMS_ITS | Encounter Summary ---
Author Organization [facility] Address [address] [place] [address] Care Team Providers Care Personnel Arbitrator Name Role Phone Alex Patel MD Primary Care Provider [phone] Mirella Gerardo MD Primary Care Provider [phone] Barron Hood Primary Care Provider [phone] Reason for Visit * Reason Comments E-prescribing Refill Request Encounter Details Date Type Department Care Team (Late st Contact Info) Description 11/14/2020 Refill [facility] Neurology [address] [facility] 230 [place] [address] Ugo Gerber MD [address] [id number] E-prescribing Refill Request Social History Tobacco Use [...] Phone 12/27/20 2:15 PM Ugo Gerber MD [facility] Neurology [address] 12/27/20 3:00 PM Krystal Mendoza PT [facility] Rehabilitation [phone] Pertinent lab results: No labs suggested for any medication orders signed or pended in this encounter. Refresh if any orders changed. Allergies: Patient has no allergy information on record. BP Readings from Last 1 Encounters: 09/29/19 (!) 94/57 Patient Active Problem List Diagnosis Date Noted ??? Parkinson disease ([facility]) -PT -PD clinic 03/17/2019 ??? Meralgia paresthetica of right side 03/17/2019 ??? Parkinson disease ([facility]) 03/07/2018 Current Outpatient Medications on File [...] tablet by mouth 4 (four) times a [id number] tablet 3 ??? Gabapentin (NEURONTIN) 300 MG [...] Description 06/22/2025 11:30 AM EDT Office Visit [facility] Neurology [address] 123 [facility] 230 [place] [address] Ugo Gerber MD [address] [facility] 230 [place] [address] [facility] documented as of this encounter Visit Diagnoses Not on filedocumented in this encounter Care Teams Personnel Arbitrator Relationship Specialty Start Date End Date Alex Patel MD [address] [place], [place] [address] [address] PCP - General Family Medicine 01/21/18 07/03/21 Mirella Gerardo MD [facility] [address] [place] [address] [place] [address] PCP - General Family Medicine 07/04/21 10/12/22 Barron Hood [address] [facility] 15 [place] [address] PCP - General Internal Medicine 10/13/22 documented as of this encounter
--- OUTSIDE RECORDS SUMMARY | 2025-05-30 17:21 | XMS_ITS | Continuity of Care Document ---
Author Organization [facility] Address [address] [place] [address] Care Team Providers Care Clinical Care Coordinator Name Role Phone Barron Hood Primary Care Provider Encounters Date Type Department Care Team Description 05/12/2025 Refill [facility] Neurology [address] [address] Ugo Gerber MD E-prescribing Refill Request 05/08/2025 Refill [facility] Neurology [address] [address] Ugo Gerber MD E-prescribing Refill Request 04/16/2025 Refill [facility] Neurology [address] [address] Ugo Gerber MD E-prescribing Refill Request 12/12/2024 11:00 AM EDT Office Visit [facility] Neurology [address] [address] Ugo Gerber MD 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) 11/06/2024 Telephone [facility] Neurology [address] [address] Ugo Gerber MD Medication Check 10/28/2024 Refill [facility] Neurology [address] [address] Ugo Gerber MD Med Change Request; Refill Request 09/21/2024 Refill [facility] Neurology [address] [facility] [address] [place] [address] Ugo Gerber MD Refill Request 09/01/2024 Refill [facility] Neurology [address] [facility] [address] [place] [address] Ugo Gerber MD E-prescribing Refill Request 06/19/2024 Refill [facility] Neurology [address] [facility] [address] [place] [address] Ugo Gerber MD E-prescribing Refill Request 06/19/2024 Refill [facility] Neurology [address] [facility] [address] [place] [address] Ugo Gerber MD Refill Request 06/17/2024 Refill [facility] Neurology [address] [facility] [address] [place] [address] Ugo Gerber MD E-prescribing Refill Request 05/24/2024 Refill [facility] Neurology [address] [address] Ugo Gerber MD E-prescribing Refill Request 04/21/2024 Refill [facility] Neurology [address] [facility] 230 [place] [address] Ugo Gerber MD E-prescribing Refill Request 04/04/2024 4:45 PM EDT Office Visit [facility] Neurology [address] [facility] [address] [place] [address] Ugo Gerber MD 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) 03/24/2024 Refill [facility] Neurology [address] [facility] 230 [place] [address] Ugo Gerber MD E-prescribing Refill Request 03/13/2024 Telephone [facility] Neurology [address] [facility] [address] [place] [address] Ugo Gerber MD Appointment 03/09/2024 Refill [facility] Neurology [address] [facility] [address] [place] [address] Ugo Gerber MD E-prescribing Refill Request 12/13/2023 Refill [facility] Neurology [address] [facility] [address] [place] [address] Ugo Gerber MD E-prescribing Refill Request 12/06/2023 Refill [facility] Neurology [address] [facility] [address] [place] [address] Ugo Gerber MD Med Change Request 11/15/2023 Refill [facility] Neurology [address] [address] Ugo Gerber MD Refill Request (Sinemet ) 10/20/2023 Telephone [facility] Neurology [address] [facility] [address] [place] [address] Ugo Gerber MD Patient Questions 10/08/2023 2:15 PM EST Office Visit [facility] Neurology [address] [address] Ugo Gerber MD 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) 09/03/2023 Refill [facility] Neurology [address] [facility] [address] [place] [address] Ugo Gerber MD E-prescribing Refill Request 07/12/2023 Refill [facility] Neurology [address] [facility] [address] [place] [address] Ugo Gerber MD Refill Request (Mirapex) 04/10/2023 Refill [facility] Neurology [address] [facility] [address] [place] [address] Ugo Gerber MD Refill Request 04/03/2023 Refill [facility] Neurology [address] [facility] [address] [place] [address] Ugo Gerber MD E-prescribing Refill Request 04/02/2023 2:15 PM EDT Office Visit [facility] Neurology [address] [address] Ugo Gerber MD Parkinson disease (Primary Dx) 03/26/2023 Refill [facility] Neurology [address] [facility] [address] [place] [address] Ugo Gerber MD E-prescribing Refill Request 03/22/2023 Refill [facility] Neurology [address] [address] Ugo Gerber MD Refill Request (Propranolol ) 03/08/2023 Refill [facility] Neurology [address] [address] Ugo Gerber MD E-prescribing Refill Request 03/01/2023 Refill [facility] Neurology [address] [address] Ugo Gerber MD Refill Request (Sinemet) 10/13/2022 4:30 PM EST Office Visit [facility] Neurology [address] [address] Ugo Gerber MD Parkinson disease (Primary Dx); Neurogenic orthostatic hypotension 09/21/2022 Refill [facility] Neurology [address] [facility] [address] [place] [address] Ugo Gerber MD Refill Request (Gabapentin) 09/09/2022 Telephone [facility] Neurology [address] [address] Ugo Gerber MD Parkinson's Disease 06/29/2022 Refill [facility] Neurology [address] [facility] [address] [place] [address] Ugo Gerber MD E-prescribing Refill Request 05/01/[address] [address] Canole, Naomie, PT Physical Therapy (PT Referral ) 05/01/2022 12:00 PM EDT Minor Procedure/Test [facility] Rehabilitation OT [address]/ Parkinson's [address] [place] [address] Canole, Naomie, PT Parkinson disease (Primary Dx) 05/01/2022 11:15 AM EDT Office Visit [facility] Neurology [address] [address] Ugo Gerber MD Parkinson disease (Primary Dx) 03/20/2022 Refill [facility] Neurology [address] [address] Ugo Gerber MD Refill Request 01/13/2022 Orders Only [facility] Rehabilitation OT [address]/ Parkinson's [address] [place] [address] Canole, Naomie, PT 01/09/2022 2:30 PM EDT Office Visit [facility] Rehabilitation OT [address]/ Parkinson's [address] [place] [address] Canole, Naomie, PT Parkinson disease (Primary Dx) 01/09/2022 1:45 PM EDT Office Visit [facility] Neurology [address] [address] Ugo Gerber MD Parkinson disease (Primary Dx) 11/18/2021 Refill [facility] Neurology [address] [address] Ugo Gerber MD E-prescribing Refill Request 10/01/2021 Refill [facility] Neurology [address] [address] Ugo Gerber MD E-prescribing Refill Request 07/15/2021 Orders Only [facility] Rehabilitation OT [address]/ Parkinson's [address] [place] [address] Krystal Mendoza, PT 07/04/2021 2:00 PM EDT Office Visit [facility] Rehabilitation OT [address]/ Parkinson's [address] [place] [address] Krystal Mendoza, PT Parkinson disease (Primary Dx) 07/04/2021 1:15 PM EDT Office Visit [facility] Neurology [address] [facility] [address] [place] [address] Ugo Gerber MD Parkinson disease (Primary Dx) 02/19/2021 Refill [facility] Neurology [address] [facility] [address] [place] [address] Ugo Gerber MD E-prescribing Refill Request 12/27/2020 Travel 12/27/2020 2:15 PM EDT Office Visit [facility] Neurology [address] [address] Ugo Gerber MD Parkinson disease (Primary Dx); Rhinorrhea 12/02/2020 Refill [facility] Neurology [address] [facility] 230 [place] [address] Jacque Sampson MD E-prescribing Refill Request 11/14/2020 Refill [facility] Neurology [address] [facility] [address] [place] [address] Ugo Gerber MD E-prescribing Refill Request 09/16/2020 Refill [facility] Neurology [address] [address] Ugo Gerber MD Refill Request 03/29/2020 Travel 03/29/2020 11:30 AM EDT Office Visit [facility] Neurology [address] [facility] [address] [place] [address] Ugo Gerber MD Parkinson disease 03/21/2020 Refill [facility] Neurology [address] [facility] [address] [place] [address] Ugo Gerber MD E-prescribing Refill Request 03/21/2020 Refill [facility] Neurology [address] [facility] [address] [place] [address] Ugo Gerber MD 03/13/2020 Refill [facility] Neurology [address] [facility] [address] [place] [address] Ugo Gerber MD E-prescribing Refill Request 01/17/2020 Orders Only [facility] Rehabilitation OT [address]/ Parkinson's [address] [place] [address] Krystal Mendoza, PT 10/26/2019 Telephone [facility] Neurology [address] [address] Ugo Gerber MD Medication Check 10/13/2019 Orders Only [facility] Rehabilitation OT [address]/ Parkinson's [address] [place] [address] Krystal Mendoza, PT 09/29/2019 2:30 PM EST Office Visit [facility] Rehabilitation OT [address]/ Parkinson's [address] [place] [address] Krystal Mendoza, PT Parkinson disease (Primary Dx) 09/29/2019 1:30 PM EST Office Visit [facility] Neurology [address] [facility] [address] [place] [address] Ugo Gerber MD Parkinson disease (Primary Dx) 09/21/2019 Refill [facility] Neurology [address] [address] Jacque Sampson MD E-prescribing Refill Request 03/17/2019 1:30 PM EDT Office Visit [facility] Rehabilitation OT [address]/ Parkinson's [address] [place] [address] Krystal Mendoza, PT Parkinson disease (Primary Dx) 03/17/2019 12:30 PM EDT Office Visit [facility] Neurology [address] [facility] [address] [place] [address] Ugo Gerber MD Parkinson disease (Primary Dx); Meralgia paresthetica of right side 02/08/2019 Refill [facility] Neurology [address] [facility] [address] [place] [address] Ugo Gerber MD E-prescribing Refill Request 12/23/2018 Telephone [facility] Neurology [address] [facility] [address] [place] [address] Ugo Gerber MD Follow Up 12/21/2018 Refill [facility] Neurology [address] [facility] [address] [place] [address] Ugo Gerber MD Refill Request 10/03/2018 Telephone [facility] Neurology [address] [facility] [address] [place] [address] Ugo Gerber MD Physical Therapy 09/23/2018 Telephone [facility] Neurology [address] [facility] [address] [place] [address] Ugo Gerber MD Parkinson's Disease 09/16/2018 11:30 AM EST Office Visit [facility] Rehabilitation OT [address]/ Parkinson's [address] [place] [address] Phyllis Leahy, PT Parkinson disease (Primary Dx) 09/16/2018 10:30 AM EST Office Visit [facility] Neurology [address] [facility] [address] [place] [address] Ugo Gerber MD Parkinson disease (Primary Dx) 07/11/2018 Telephone [facility] Neurology [address] [facility] [address] [place] [address] Ugo Gerber MD Medication Check 05/25/2018 Refill [facility] Neurology [address] [facility] [address] [place] [address] Ugo Gerber MD Refill Request 04/25/2018 Refill [facility] Neurology [address] [facility] [address] [place] [address] Ugo Gerber MD Refill Request 03/09/2018 Telephone [facility] Neurology [address] [facility] [address] [place] [address] Ugo Gerber MD F/u From OV 03/07/2018 11:15 AM EDT Consult (Initial) [facility] Neurology [address] [facility] [address] [place] [address] Ugo Gerber MD Parkinson disease (Primary Dx) 02/20/2018 Telephone [facility] Neurology [address] [facility] [address] [place] [address] Ugo Gerber MD Information 11/29/2017 Consult (Initial) [...] Date Neurogenic orthostatic hypotension 10/13/2022 Parkinson disease ([facility]) -PT -PD clinic 9 Meralgia [...] 09/03/2008 Social History Smoking Status as of 05/30/2025 Tobacco Use Types Packs/Day Years Used Date [...] Upcoming Encounters Date Type Department Care Team ([facility] st Contact Info) Description 06/22/2025 11:30 AM EDT Office Visit [facility] Neurology [address] [address] Ugo Gerber MD 123 [facility] [place] [address] [place] [address] [facility] Visit Diagnoses Diagnosis [...] and fluctuating manifestations (HCC) 12/12/2024 Care Teams Clinical Care Coordinator Relationship Specialty Start Date End Date Barron Hood [address] [facility] [address] [place] [address] PCP - General Internal Medicine 10/13/22
== END 2025-05-28 13:23 | disposition home or self-care (01) ==
LOC: HO.LNP 13:22
PROVIDERS: Visit Provider Nurse Practitioner Family
DX: R31.29 Other microscopic hematuria (principal)
CPT/HCPCS: 88112

== ENCOUNTER → 2025-05-28 13:22 | Outpatient (BNVA) | payer BC, SELFPAY | PROVIDERS: PCP Pediatrics; Visit Provider Nurse Practitioner Family | DX: R31.29 Other microscopic hematuria (principal) | CPT/HCPCS: 51798; 81003 ==